=== PATIENT | female | born 1955 | race African-American/Black ===

== ENCOUNTER 2020-09-16 21:41 | Inpatient (IN) | payer OTHER, MEDICARE ==
[~2020-09-16] VITALS: Ht 157.5 cm; Wt 111.6 kg
[2020-09-16 21:30] VITALS: BP 142/81
[2020-09-16 21:45] VITALS: BP 119/73
[2020-09-16 22:00] VITALS: BP 136/82
[2020-09-16 22:15] VITALS: BP 121/77
--- NOTE | 2020-09-16 22:43 | NUR ---
Patient arrived to ICU room 104 for [facility] ED. Transferred by EMS. Intubated and covid swabbed at [facility]. No fluids infusing. Versed 5mg at [facility], no pain for sedation enroute. VSS. ETT and OG in place. PIVs x2. Family notified of transfer by Charlie, auctioneer automobile at [facility]. VSS. Will continue to monitor.
[2020-09-16] MEDS ORDERED: ENOXAPARIN 40 MG/0.4 ML SYRINGE. SQ SCH (23:00)
[2020-09-16] MEDS ORDERED: ENOXAPARIN 40 MG/0.4 ML SYRINGE. SQ ONE (23:30)
[2020-09-17] VITALS (24 sets, daily range): BP systolic 104–169; BP diastolic 58–88
[2020-09-17] MEDS: fentaNYL PF VIAL 100 MCG/2 ML VIAL IV PRN ×4 (00:29→23:16)
[2020-09-17] MEDS: PROPOFOL 100 ML IV PRN ×6 (01:03→23:15)
[2020-09-17 06:37] LABS: ALBUMIN 2.7 g/dL (3.4-5.0); ALBUMIN/GLOBULIN RATIO 0.6 (1.0-1.7); CALCIUM 8.6 mg/dL (8.5-10.1); CREATININE 2.2 mg/dL (0.6-1.0); GFR 26.9; POTASSIUM 4.8 mmol/L (3.5-5.1); TOTAL BILIRUBIN 0.3 mg/dL (0.2-1.0); TOTAL PROTEIN 6.9 g/dL (6.4-8.2)
[2020-09-17] MEDS ORDERED: DEXTROSE 50% 25 GM / 50ML DISP.SYRIN. IV PRN ×2 (07:45→08:45)
[2020-09-17] MEDS: FAMOTIDINE 20 MG/2 ML VIAL IVP SCH (07:49)
[2020-09-17] MEDS: DEXAMETHASONE SOD PHOS 4 MG/ML VIAL IVP SCH (07:49)
--- NOTE | 2020-09-17 07:50 | PDOC ---
PULMONARY PROGRESS NOTES DATE: 09/17/20 TIME: 07:49 Vitals Vital Signs Date Time Temp Pulse Resp B/P (MAP) Pulse Ox O2 Delivery O2 Flow Rate FiO2 09/17/20 06:00 78 20 112/88 (96) 93 Ventilator 09/17/20 04:00 99.4 99.4 Labs Laboratory Tests Test 09/17/20 05:01 Sodium Level 141 mmol/L (136-145) Potassium Level 4.8 mmol/L (3.5-5.1) Chloride Level 101 mmol/L (98-107) Carbon Dioxide Level 29 mmol/L (21-32) Anion Gap 11 (6-14) Blood Urea Nitrogen 69 mg/dL (7-20) Creatinine 2.2 mg/dL (0.6-1.0) Estimated GFR (Cockcroft-Gault) 26.9 BUN/Creatinine Ratio 31 (6-20) Glucose Level 223 mg/dL (70-99) Calcium Level 8.6 mg/dL (8.5-10.1) Total Bilirubin 0.3 mg/dL (0.2-1.0) Aspartate Amino Transf (AST/SGOT) 240 U/L (15-37) Alanine Aminotransferase (ALT/SGPT) 120 U/L (14-59) Alkaline Phosphatase 174 U/L (46-116) Total Protein 6.9 g/dL (6.4-8.2) Albumin 2.7 g/dL (3.4-5.0) Albumin/Globulin Ratio 0.6 (1.0-1.7) Laboratory Tests Test 09/17/20 05:01 Sodium Level 141 mmol/L (136-145) Potassium Level 4.8 mmol/L (3.5-5.1) Chloride Level 101 mmol/L (98-107) Carbon Dioxide Level 29 mmol/L (21-32) Anion Gap 11 (6-14) Blood Urea Nitrogen 69 mg/dL (7-20) Creatinine 2.2 mg/dL (0.6-1.0) Estimated GFR (Cockcroft-Gault) 26.9 BUN/Creatinine Ratio 31 (6-20) Glucose Level 223 mg/dL (70-99) Calcium Level 8.6 mg/dL (8.5-10.1) Total Bilirubin 0.3 mg/dL (0.2-1.0) Aspartate Amino Transf (AST/SGOT) 240 U/L (15-37) Alanine Aminotransferase (ALT/SGPT) 120 U/L (14-59) Alkaline Phosphatase 174 U/L (46-116) Total Protein 6.9 g/dL (6.4-8.2) Albumin 2.7 g/dL (3.4-5.0) Albumin/Globulin Ratio 0.6 (1.0-1.7) Impression . Full note dictated Acute respiratory failure multifactorial suspect pneumonia, rule out COVID-19 See orders RADHA UNGER MD Sep 17, 2020 07:50
--- NOTE | 2020-09-17 07:55 | RAD ---
XR CHEST 1V INDICATION: Reason: intubated / Spl. Instructions: / History: . COMPARISON STUDY: 09/16/2020. FINDINGS: Life Support Devices: Stable endotracheal tube. Lungs: Normal lung volume. Patchy bilateral opacities, improved in the left upper lung zone. Pleura: Small bilateral pleural effusions. Heart and Mediastinum: Stable cardiomediastinal silhouette and great vessels. Bones and Soft Tissues: Stable regional skeleton and soft tissues. IMPRESSION: 1. Patchy bilateral opacities, improved in the left upper lung zone. 2. Small bilateral pleural effusions. 3. Stable life-support devices. Electronically signed by: Guillermo Solo MD (09/17/2020 7:52 AM) [id number]
[2020-09-17] MEDS ORDERED: VANCOMYCIN 2 GM in IV NORMAL SALINE 500ML BAG 500 ML IV ONE (08:00)
--- NOTE | 2020-09-17 08:07 | CONS ---
DATE OF CONSULTATION: 09/17/2020 ATTENDING PHYSICIAN: Dr. Munguia. REASON FOR CONSULTATION: The patient is seen in pulmonary consultation at the request of Dr. Munguia for acute respiratory failure requiring mechanical ventilation. HISTORY OF PRESENT ILLNESS: The patient is a 65-year-old who presented to [facility] Emergency Room by EMS for hypoxemia. The patient stated that she was heading in the 50s and 60s. She was on home oxygen apparently at 5 liters per nasal cannula. EMS arrived, placed her on CPAP, O2 sat bertrand for 70%. The patient was obtunded, but awakens to voice commands. According to the family, she had done well up until 24 hours prior to her deterioration. She denied any COVID-19 symptoms of cough, fever. She does have a history of chronic heart failure, COPD, diabetes, was recently hospitalized for DKA. She was intubated. She was transferred to [facility]. She is in isolation for possible COVID-19. Electrolytes were noted. BUN and creatinine are elevated. AST, ALT are elevated. Chest x-ray, I reviewed, there is bilateral pulmonary infiltrates. Endotracheal tube is properly positioned. PAST MEDICAL HISTORY: Chronic heart failure, COPD, diabetes, hypertension. PAST SURGICAL HISTORY: Status post appendectomy, colectomy, hysterectomy. REVIEW OF SYSTEMS: Unobtainable secondary to the patient's condition. CURRENT MEDICATIONS: List was reviewed. She is currently receiving dexamethasone. She has received Lovenox, Pepcid. PHYSICAL EXAMINATION: VITAL SIGNS: Stable. O2 saturation was greater than 92%, currently on assist control ventilation, tidal volume of 450, rate of 20, 100% and 10 of PEEP, saturation greater than 92%. HEENT: Eyes: The sclerae were nonicteric. NECK: Jugular venous distention could not be assessed secondary to body habitus. CHEST: Full expansion. LUNGS: Bilateral rhonchi. No wheezes. CARDIOVASCULAR: Regular rate and rhythm with S1, S2, no S3. ABDOMEN: Soft, nontender. EXTREMITIES: No clubbing, cyanosis. Minimal edema. NEUROLOGICAL: The patient was sedated. LABORATORY DATA: As indicated above, recent labs revealed a BUN of 69, creatinine 2.2. AST of 240, ALT of 120. Albumin was low. Labs from [facility] revealed a white count of 18,000. IMPRESSION: 1. Acute respiratory failure, multifactorial. 2. Abnormal x-ray. 3. Acute on chronic kidney injury. 4. Chronic heart failure. 5. Possible bacterial pneumonia. 6. Rule out COVID-19. 7. Metabolic toxic encephalopathy. 8. Elevated liver chemistries. 9. Moderate protein malnutrition, present upon admission. PLAN: 1. We will continue current support, adjust minute ventilation to normalize pH. 2. Empiric antibiotics for gram-negative and gram-positive organisms. 3. SARS-CoV-2. 4. Continue dexamethasone. 5. Monitor labs. 6. Nutritional support. 7. Monitor blood sugars. I do appreciate the privilege in sharing in patient's care. Total cumulative critical care time from 7:00 a.m. to 7:48 a.m. RADHA UNGER MD DR: CHEVY/emmett JOB#: [id number] / [id number]
[2020-09-17] MEDS ORDERED: INSULIN LISPRO 300 UNITS/3 ML VIAL. SQ PRN ×2 (08:45→09:00)
[2020-09-17] MEDS: VANCOMYCIN PER PHARMACY MC PRN (09:25)
--- NOTE | 2020-09-17 09:29 | NUR ---
Pharmacy Vancomycin Dosing Note S:Consulted to monitor and dose vancomycin started 09/17/20. O:MORTEZA MCKEON is a 65 year old F with Pneumonia . Height: 5 feet, 2 inches Weight: 105.0 kg [place] Body Weight: 50.10 Adjusted Body Weight: 72.06 Dosing Weight: Actual Other Antibiotics: ZITHROMAX/ROCEPHIN LABS: Last BUN: Last Creatinine: 2.2 Creatinine Clearance: 28 mL/min Last WBC: Last Procalcitonin: Tmax (past 24 hours): 99.8 Microbiology: I/O: Drug Levels: Last level: on at Last dose given 09/17/20 at Vancomycin Dosing: Loading Dose: 2000 mg x1 Dosing Weight: Actual Target Trough: 15-20 A: Based on: WEIGHT AND RENAL FUNCTION, VANCOMYCIN 2GM IV BOLUS/ THEN P: 1. Begin Vancomycin 1500 mg IV q24h 2. Follow up Trough level on 09/19/20 at 0800 3. Pharmacy will continue to monitor, follow and adjust therapy as needed. VONNIE BOCANEGRA Karon, 09/17/20 [id number]
[2020-09-17 09:34] LABS: BASE EXCESS ABG 3 mmol/L (-3-3); HCO3 ABG 28 mmol/L (21-28); PCO2 ABG 43 mmHg (35-46); PO2 ABG 56 mmHg (65-108); SAT O2 ABG 88 % (92-99)
--- NOTE | 2020-09-17 09:44 | HP ---
ADMIT DATE: 09/17/2020 HISTORY OF PRESENT ILLNESS: The patient is a 65-year-old -[place] female patient, who presented to the Emergency Room of [facility] with worsening shortness of breath and hypoxia. She apparently was recently placed on 5 liters of oxygen by nasal cannula and her family stated her oxygen saturation was down to 50-60%. On arrival, of the emergency medical service personnel, she was placed on CPAP and oxygen saturation has improved to mid 70s. The patient is obtunded, but will awaken up to voice and follows commands. Per family, she was at baseline yesterday. They denied that she has any COVID-19 symptoms, such as cough or fever. The patient has a history significant for congestive heart failure and COPD. She has also had a history of diabetes and was most recently admitted with hyperosmolar nonketotic coma. The other history is limited given the patient was obtunded and on CPAP. The patient was evaluated in the Emergency Room. Had had an EKG, which showed that she was in sinus rhythm with no ST segment elevation or depression, T-wave inversion in lead 3 and aVF with no prior EKGs to compare. Her chest x-ray showed diffuse interstitial infiltrate and suspected small left greater than right pleural effusion. Her lab work showed that her white cell count was elevated at 18,400. Her blood gases showed a pH of 7.17, her pCO2 of 75, pO2 of 45, bicarbonate 31, and oxygen saturation was only 69% on FiO2 of 100%. Her chemistry showed that she has lactic acidosis with lactic acid of 8.1. She has acute on chronic kidney injury and her troponin was slightly elevated at 0.143. Apparently, the patient continued to do poorly and eventually she required intubation, mechanical ventilation and was transferred to [facility] with acute hypoxic hypercapnic respiratory failure, likely due to community-acquired pneumonia. She also has congestive heart failure on top of morbid obesity and probably obstructive sleep apnea. She was treated with IV Lasix together with ceftriaxone, Zithromax, albuterol, Atrovent and dexamethasone 10 mg IV once. PAST MEDICAL HISTORY: Significant for morbid obesity, hypertension, type 2 diabetes, chronic obstructive pulmonary disease, remote history of congestive heart failure. She has also history of sarcoidosis and probable obstructive sleep apnea. PAST SURGICAL HISTORY: Significant for appendectomy, partial colectomy, and hysterectomy. ALLERGIES: SHE HAS ALLERGIES TO CHACE INHIBITORS AND TRANDOLAPRIL; the exact reaction is not clear. FAMILY HISTORY: Her father at the age of 72 of COPD and lung-related issues. Mom is still alive at the age of 92. She is retired and lives with her in a house with very few stairs. SOCIAL HISTORY: She is and currently resides with her . She does not smoke, drink alcohol or use recreational drugs. REVIEW OF SYSTEMS: Unobtainable. MEDICATIONS: She is currently on following medications: She is on ipratropium bromide, albuterol sulfate by nebulizer 4 times a day, albuterol sulfate by nebulizer every 4 hours. She is on apixaban 5 mg twice a day, carvedilol 12.5 mg twice a day, oxycodone immediate release 10 mg every 6 hours, gabapentin 300 mg twice a day, Ambien 5 mg at bedtime, potassium chloride 10 mEq twice a day. She is on torsemide 20 mg twice a day, metolazone 5 mg every other day. She is on Flonase 2 sprays to each nostril once a day, ondansetron 8 mg every 8 hours. She is on metformin 1000 mg twice a day. She is on Lantus insulin 20 units at bedtime and Humalog insulin 10 units before meals. She is on levothyroxine sodium 125 mcg once a day and azathioprine for Imuran 50 mg daily, melatonin 3 mg extended release at bedtime for insomnia. PHYSICAL EXAMINATION: GENERAL: On arrival to the Emergency Room, the patient was very lethargic, but arousable. There was no pallor, jaundice, cyanosis or thyromegaly. No jugular venous distention. No lower limb edema. VITAL SIGNS: Her heart rate was 78, blood pressure was 127/83, temperature was 96.9, respiratory rate 28, and oxygen saturation was 70%. HEAD, EYES, EARS, NOSE AND THROAT: Showed normocephalic, atraumatic. NECK: Supple. HEART: Normal first and second heart sounds. No gallop or murmur. CHEST: Clear to auscultation. No crepitation or rhonchi. ABDOMEN: Distended, soft, nontender. NEUROLOGIC: She is lethargic, but arousable. All cranial nerves intact. She does open her eyes and responds verbally, but drifts back. EXTREMITIES: She moves her extremities spontaneously. LABORATORY DATA: While in the Emergency Room, she has had multiple lab work as well as imaging studies and EKG. Her EKG showed that she was in sinus rhythm with no ST segment elevation or depression. Her white cell count was 18,400; hemoglobin 12.5; hematocrit 43; MCV 78 and platelet count of 306,000 with manual differential showed 82% polymorphs, 7% lymphocytes and 10% monocytes. Her serum sodium was 140, potassium 4.6, chloride 99, bicarbonate 26, anion gap of 15, BUN 52, creatinine 2.3, estimated GFR was 25 mL per minute. Her glucose 130, calcium was 9. Lactic acid was 8.1. Total bilirubin 0.4. AST, ALT, alkaline phosphatase were normal. Troponin was 0.143 and beta-natriuretic peptide was 9323. Total protein 8.5, albumin was 3.3. Her D-dimer was high at 4.69 and urinalysis showed the urine was yellow, cloudy with a pH of 5, specific gravity 1.025. There is large amount of protein. The urine was negative for glucose, ketones, trace of blood, negative for nitrite, negative for leukocyte esterase. There are rare rbc's, rare wbc's, and no bacteria. Her influenza A and B were negative. Her chest x-ray showed the patient has diffuse interstitial infiltrate and suspected small left greater than right pleural effusion. A second x-ray showed endotracheal tube in the right mainstem bronchus and recommended repositioning. She has enteric tube, distal extent is not well assessed. Recommend further evaluation of the abdominal radiograph when the patient's condition allows. Her third chest x-ray basically showed that endotracheal tube with approximately 2 cm above ilene. Her enteric tube traverses below the diaphragm and distal extent is not well seen. Her initial blood gases showed a pH of 7.22, her pCO2 is 75, pO2 of 45, bicarbonate 31, and oxygen saturation of 69% on FiO2 of 100%. ASSESSMENT AND PLAN: The patient was diagnosed with acute hypoxic hypercapnic respiratory failure, community-acquired pneumonia, acute on chronic kidney injury, acute on chronic diastolic congestive heart failure, morbid obesity, obstructive sleep apnea, type 2 diabetes. The patient was treated with IV antibiotic in the form of ceftriaxone and Zithromax. She received also IV furosemide; a total of 80 mg nebulized treatment with albuterol and ipratropium bromide together with dexamethasone. She was swabbed for COVID-19, although clinically, the likelihood is little and was transferred to [facility] ICU for further evaluation and treatment. DARION MANCINI MD DR: NICHOLAS/emmett JOB#: [id number] / [id number]
[2020-09-17 09:59] LABS: BASO # 0.1 x10^3/uL (0.0-0.2); BASO % 0 % (0-3); EOS % 0 % (0-3); HEMATOCRIT 39.7 % (36.0-47.0); HEMOGLOBIN 11.9 g/dL (12.0-15.5); LYMPH # 1.1 x10^3/uL (1.0-4.8); LYMPH % 7 % (24-48); MEAN CORPUSCULAR HEMOGLOBIN 22 pg (25-35); MEAN CORPUSCULAR HGB CONC 30 g/dL (31-37); MEAN CORPUSCULAR VOLUME 75 fL (79-100); MONO % 6 % (0-9); NEUT # 13.6 x10^3/uL (1.8-7.7); NEUT % 86 % (31-73); PLATELET COUNT 279 x10^3/uL (140-400); RED BLOOD COUNT 5.29 x10^6/uL (3.50-5.40); RED CELL DISTRIBUTION WIDTH 18.2 % (11.5-14.5); WHITE BLOOD COUNT 15.8 x10^3/uL (4.0-11.0)
[2020-09-17] MEDS ORDERED: HEPARIN for IV BOLUS 10,000 UNIT/10 ML VIAL. IV PRN (10:00)
[2020-09-17] MEDS: HEPARIN 25,000UTS/250ML PREMIX 250 ML IV PRN (10:14)
[2020-09-17 10:36] LABS: FIO2 ABG 100% VENT
[2020-09-17 11:06] LABS: % BANDS 2 % (0-9); % LYMPHS 2 % (24-48); % MONOS 1 % (0-10); % SEGS 95 % (35-66); PLT ESTIMATE ADEQUATE (ADEQUATE)
--- NOTE | 2020-09-17 11:25 | PN ---
DATE: 09/17/2020 SUBJECTIVE: The patient is a 65-year-old -[place] female patient who was seen yesterday at [facility] with altered mental status. She was diagnosed with acute hypoxic, hypercapnic respiratory failure, requiring intubation and mechanical ventilation. She also was found to have probably community-acquired pneumonia as well as acute on chronic diastolic congestive heart failure, hfwux-wr-ahnfugs kidney injury. She was treated with IV antibiotic in the form of ceftriaxone, Zithromax as well as Zosyn and dexamethasone, received also a total of 80 mg of IV Lasix and was transferred to [facility] ICU for further evaluation and treatment. When I saw her this morning, she continued to be healing well. She continues to be sedated on propofol, intubated and mechanically ventilated. OBJECTIVE: GENERAL: On examining her, she was somewhat pale, no jaundice, cyanosis or thyromegaly. No jugular venous distention. No limb edema. VITAL SIGNS: Her heart rate was 77, blood pressure was 121/71, temperature was 99, respiratory rate was 20, and oxygen saturation was 92% on FiO2 of 50%. HEAD, EYES, EARS, NOSE AND THROAT: Normocephalic, atraumatic. NECK: Supple. HEART: Showed normal first and second heart sounds. No gallop, rub or murmur. CHEST: Showed central trachea, equal bilateral chest expansion, air entry. I could not really appreciate any crepitation or rhonchi anteriorly. ABDOMEN: Markedly distended, soft, nontender. NEUROLOGIC: She is heavily sedated. Her intake and output are incompletely recorded. LABORATORY DATA: Her lab work this morning showed a serum sodium 141, potassium 4.8, chloride 101, bicarbonate 29, anion gap of 11, BUN 69, creatinine 2.2, estimated GFR was 27 mL per minute. Her glucose was 123, calcium was 8.6. Total bilirubin is normal. AST, ALT, alkaline phosphatase are all elevated. Total protein 6.9, albumin was 2.7. Her chest x-ray showed that she has stable endotracheal tube above the ilene. Normal lung volumes with patchy bilateral opacities, improved in the left upper lobe zone. Small bilateral pleural effusion. The heart and mediastinum are stable with the impression that the patient has patchy bilateral opacities, improved in the left upper lobe lung zone. She has bilateral pleural effusion. ASSESSMENT: In summary, this is a 65-year-old -[place] female patient who was seen originally at [facility] Emergency Room with: 1. Oyrph-ih-yhcvfef hypoxic, hypercapnic respiratory failure. 2. Community-acquired pneumonia. 3. Seknf-hy-nebwfsn probably diastolic congestive heart failure. 4. Qeusp-vf-dwhnqfe kidney injury. She was swabbed for possible COVID-19, although clinically, the likelihood is less. She was treated with dexamethasone, IV Lasix and IV antibiotics. PLAN: To continue obviously with sedation and mechanical ventilation and wean as tolerated. Continue with DVT prophylaxis. Continue with azithromycin and ceftriaxone. Continue with GI prophylaxis. Continue with dexamethasone. She did receive one dose of vancomycin. Continue with fentanyl and propofol for sedation. Today's labs are still pending at the time of this dictation. I did consult Cardiology for evaluation and treatment. She was already seen by the ditcher operator. DARION MANCIIN MD DR: NICHOLAS/emmett JOB#: [id number] / [id number]
[2020-09-17] MEDS: INSULIN LISPRO 300 UNITS/3 ML VIAL. SQ SCH ×2 (11:49→18:08)
[2020-09-17] MEDS ORDERED: LEVO125T5 PO (13:17)
[2020-09-17] MEDS ORDERED: INSU100V38 SQ (13:17)
[2020-09-17] MEDS ORDERED: ALBU2.5V5 NEB (13:17)
[2020-09-17] MEDS ORDERED: GABA300C18 PO (13:17)
[2020-09-17] MEDS ORDERED: APIX5TAB PO (13:17)
[2020-09-17] MEDS ORDERED: INSU100I13 SQ (13:17)
[2020-09-17] MEDS ORDERED: IPRA3AMP29 NEB (13:17)
[2020-09-17] MEDS ORDERED: METO5TAB4 PO (13:17)
[2020-09-17] MEDS ORDERED: ZOLP5TAB PO (13:17)
[2020-09-17] MEDS ORDERED: CARV12.511 PO (13:17)
[2020-09-17] MEDS ORDERED: TORS20TA2 PO (13:17)
[2020-09-17] MEDS ORDERED: METF10007 PO (13:17)
[2020-09-17] MEDS ORDERED: AZAT50TA20 PO (13:17)
[2020-09-17] MEDS ORDERED: POTA10TA6 PO (13:17)
[2020-09-17] MEDS ORDERED: MELA5CAP PO (13:17)
[2020-09-17] MEDS ORDERED: OXYC5TAB2 PO (13:17)
[2020-09-17] MEDS ORDERED: CARVEDILOL 12.5 MG TABLET. PO ONE (14:15)
--- NOTE | 2020-09-17 14:28 | PDOC2 ---
CONSULT Date of Consult Date of Consult DATE: 09/17/20 TIME: 14:19 Reason for Consult Reason for Consult: Respiratory failure with possible heart failure Referring Physician Referring Physician: Dr. Munguia Identification/Chief Complaint Chief Complaint Shortness of breath Source Source: Chart review History of Present Illness Reason for Visit: The patient is a 65-year-old female who presented to the [facility] emergency room with increasing shortness of breath. Her chest x-ray showed diffuse interstitial infiltrates and mild bilateral pleural effusions. Her lactic acid was elevated and she had a troponin of 0.143 but no acute ischemic changes. The patient progressively deteriorated and required intubation. She was then transferred to [facility]. The patient has remained intubated overnight. Further significant lab is been a white count of 15.8 potassium 4.8 creatinine of 2.2 glucose of 206 and her troponin has decreased from 0.975- 0.820. She has remained intubated did overnight. She does have a history of heart failure, COPD, diabetes and possibly sarcoidosis. Past Medical History Cardiovascular: CHF, HTN Pulmonary: COPD, Other (Possible sleep apnea) Renal/: Chronic renal insuff Endocrine: Diabetes Past Surgical History Past Surgical History: Appendectomy, Hysterectomy, Colectomy Family History Family History: Hypertension Social History No ALCOHOL: none Lives: with Family Current Medications Current Medications Current Medications Enoxaparin Sodium (Lovenox 40mg Syringe) 40 mg Q24H SQ ; Start 09/16/20 at 23:00; Stop 09/16/20 at 23:27; Status DC Ceftriaxone Sodium (Rocephin) 1 gm Q24H IVP ; Start 09/17/20 at 17:00 Azithromycin 500 mg/Sodium Chloride 250 ml @ 250 mls/hr Q24H IV ; Start 09/17/20 at 17:00 Dexamethasone Sodium Phosphate (Decadron) 6 mg DAILY IVP Last administered on 09/17/20at 07:49; Start 09/17/20 at 09:00 Propofol 100 ml @ 0 mls/hr CONT PRN IV PER PROTOCOL Last administered on at 09:39; Start 09/16/20 at 23:00 Fentanyl Citrate (Fentanyl 2ml Vial) 50 mcg PRN Q1HR PRN IV SEE COMMENTS Last administered on 09/17/20at 12:50; Start 09/16/20 at 23:00 Famotidine (Pepcid Vial) 20 mg DAILY IVP Last administered on 09/17/20at 07:49; Start 09/17/20 at 09:00 Enoxaparin Sodium (Lovenox 40mg Syringe) 40 mg Q24H SQ ; Start 09/17/20 at 21:00; Stop 09/17/20 at 10:03; Status DC Enoxaparin Sodium (Lovenox 40mg Syringe) 40 mg 1X ONCE SQ Last administered on 09/17/20at 00:28; Start 09/16/20 at 23:30; Stop 09/16/20 at 23:31; Status DC Dextrose (Dextrose 50%-Water Syringe) 12.5 gm PRN Q15MIN PRN IV SEE COMMENTS; Start 09/17/20 at 07:45; Stop 09/17/20 at 08:50; Status DC Vancomycin HCl (Vanco Per Pharmacy) 1 each PRN DAILY PRN MC SEE COMMENTS Last administered on 09/17/20at 09:25; Start 09/17/20 at 08:00 Vancomycin HCl 2 gm/Sodium Chloride 500 ml @ 250 mls/hr 1X ONCE IV Last administered on 09/17/20at 08:32; Start 09/17/20 at 08:00; Stop 09/17/20 at 09:59; Status DC Insulin Human Lispro (HumaLOG) 0-7 UNITS Q6H PRN SQ hyperglycemia; Start 09/17/20 at 08:45; Stop 09/17/20 at 08:48; Status DC Dextrose (Dextrose 50%-Water Syringe) 12.5 gm PRN Q15MIN PRN IV SEE COMMENTS; Start 09/17/20 at 08:45 Insulin Human Lispro (HumaLOG) 0-7 UNITS PRN Q6HRS PRN SQ hyperglycemia; Start 09/17/20 at 09:00; Stop 09/17/20 at 11:06; Status DC Vancomycin HCl 1.5 gm/Sodium Chloride 500 ml @ 250 mls/hr Q24H IV ; Start 09/18/20 at 08:30 Vancomycin HCl (Vancomycin Trough Level) 1 each 1X ONCE MC ; Start 09/19/20 at 08:00; Stop 09/19/20 at 08:01 Heparin Sodium/ Dextrose 250 ml @ 0 mls/hr CONT PRN IV PER PROTOCOL Last administered on 09/17/20at 10:14; Start 09/17/20 at 10:00 Heparin Sodium (Porcine) (Heparin Sodium) 2,650 unit PRN Q6HRS PRN IV FOR UFH LEVEL LESS THAN 0.2; Start 09/17/20 at 10:00 Insulin Human Lispro (HumaLOG) 0-7 UNITS Q6HRS SQ Last administered on 09/17/20at 11:49; Start 09/17/20 at 12:00 Carvedilol (Coreg) 12.5 mg BIDWMEALS PO ; Start 09/17/20 at 17:00 Carvedilol (Coreg) 12.5 mg 1X ONCE PO ; Start 09/17/20 at 14:15; Stop 09/17/20 at 14:16 Nitroglycerin/ Dextrose 250 ml @ 1.5 mls/hr CONT PRN IV SEE I/O RECORD; Start 09/17/20 at 13:45 Active Scripts Active Reported Metolazone 5 Mg Tablet 5 Mg PO QODAY Imuran (Azathioprine) 50 Mg Tablet 1 Tab PO DAILY 30 Days Albuterol Sulfate Neb Soln (Albuterol Sulfate) 2.5 Mg/3 Ml Vial.neb 1 Vial NEB PRN Q4HRS Carvedilol (Carvedilol) 12.5 Mg Tablet 12.5 Mg PO BIDWMEALS Melatonin 5 Mg Capsule 3 Mg PO HS Duoneb 0.5-3(2.5) Mg/3 Ml (Albuterol/Ipratropium) 3 Ml Ampul.neb 3 Ml NEB QID Klor-Con 10 (Potassium Chloride) 10 Meq Tablet.er 1 Tab PO DAILY 30 Days Eliquis (Apixaban) 5 Mg Tablet 5 Mg PO BID Torsemide 20 Mg Tablet 1 Tab PO BID Metformin Hcl 1,000 Mg Tablet 1,000 Mg PO BIDWMEALS Oxycodone HCl 5 Mg Tablet 10 Mg PO PRN Q6HRS PRN Ambien (Zolpidem Tartrate) 5 Mg Tablet 5 Mg PO PRN QHS PRN Levothyroxine Sodium 125 Mcg Tablet 1 Tab PO DAILY Gabapentin (Gabapentin) 300 Mg Capsule 300 Mg PO BID Lantus Solostar (Insulin Glargine,Hum.rec.anlog) 100 Unit/1 Ml Insuln.pen 20 Unit SQ QHS Insulin Lispro 100 Unit/1 Ml Vial 10 Unit SQ TID Allergies Allergies: Coded Allergies: CHACE Inhibitors (Verified Allergy, Severe, 09/16/20) trandolapril (Verified Allergy, Severe, 09/16/20) ROS Review of System The patient is intubated. Physical Exam General: Other (Intubated) Lungs: Other (Decreased breath sounds) Heart: Regular rate Vitals VITALS Vital Signs Date Time Temp Pulse Resp B/P (MAP) Pulse Ox O2 Delivery O2 Flow Rate FiO2 09/17/20 14:00 77 20 105/58 (74) 94 Ventilator 09/17/20 12:00 98.9 98.9 Labs Labs Laboratory Tests Test 09/17/20 05:00 09/17/20 05:01 09/17/20 05:09 09/17/20 09:10 White Blood Count 15.8 x10^3/uL (4.0-11.0) Red Blood Count 5.29 x10^6/uL (3.50-5.40) Hemoglobin 11.9 g/dL (12.0-15.5) Hematocrit 39.7 % (36.0-47.0) Mean Corpuscular Volume 75 fL (79-100) Mean Corpuscular Hemoglobin 22 pg (25-35) Mean Corpuscular Hemoglobin Concent 30 g/dL (31-37) Red Cell Distribution Width 18.2 % (11.5-14.5) Platelet Count 279 x10^3/uL (140-400) Neutrophils (%) (Auto) 86 % (31-73) Lymphocytes (%) (Auto) 7 % (24-48) Monocytes (%) (Auto) 6 % (0-9) Eosinophils (%) (Auto) 0 % (0-3) Basophils (%) (Auto) 0 % (0-3) Neutrophils # (Auto) 13.6 x10^3/uL (1.8-7.7) Lymphocytes # (Auto) 1.1 x10^3/uL (1.0-4.8) Monocytes # (Auto) 1.0 x10^3/uL (0.0-1.1) Eosinophils # (Auto) 0.0 x10^3/uL (0.0-0.7) Basophils # (Auto) 0.1 x10^3/uL (0.0-0.2) Segmented Neutrophils % 95 % (35-66) Band Neutrophils % 2 % (0-9) Lymphocytes % 2 % (24-48) Monocytes % 1 % (0-10) Platelet Estimate Adequate (ADEQUATE) Sodium Level 141 mmol/L (136-145) Potassium Level 4.8 mmol/L (3.5-5.1) Chloride Level 101 mmol/L (98-107) Carbon Dioxide Level 29 mmol/L (21-32) Anion Gap 11 (6-14) Blood Urea Nitrogen 69 mg/dL (7-20) Creatinine 2.2 mg/dL (0.6-1.0) Estimated GFR (Cockcroft-Gault) 26.9 BUN/Creatinine Ratio 31 (6-20) Glucose Level 223 mg/dL (70-99) Calcium Level 8.6 mg/dL (8.5-10.1) Total Bilirubin 0.3 mg/dL (0.2-1.0) Aspartate Amino Transf (AST/SGOT) 240 U/L (15-37) Alanine Aminotransferase (ALT/SGPT) 120 U/L (14-59) Alkaline Phosphatase 174 U/L (46-116) Total Protein 6.9 g/dL (6.4-8.2) Albumin 2.7 g/dL (3.4-5.0) Albumin/Globulin Ratio 0.6 (1.0-1.7) Troponin I Quantitative 0.975 ng/mL (0.000-0.055) O2 Saturation 88 % (92-99) Arterial Blood pH 7.43 (7.35-7.45) Arterial Blood pCO2 at Patient Temp 43 mmHg (35-46) Arterial Blood pO2 at Patient Temp 56 mmHg (65-108) Arterial Blood HCO3 28 mmol/L (21-28) Arterial Blood Base Excess 3 mmol/L (-3-3) FiO2 100% vent Test 09/17/20 10:54 09/17/20 12:35 Glucose (Fingerstick) 206 mg/dL (70-99) Troponin I Quantitative 0.820 ng/mL (0.000-0.055) Laboratory Tests Test 09/17/20 05:00 09/17/20 05:01 09/17/20 05:09 09/17/20 09:10 White Blood Count 15.8 x10^3/uL (4.0-11.0) Red Blood Count 5.29 x10^6/uL (3.50-5.40) Hemoglobin 11.9 g/dL (12.0-15.5) Hematocrit 39.7 % (36.0-47.0) Mean Corpuscular Volume 75 fL (79-100) Mean Corpuscular Hemoglobin 22 pg (25-35) Mean Corpuscular Hemoglobin Concent 30 g/dL (31-37) Red Cell Distribution Width 18.2 % (11.5-14.5) Platelet Count 279 x10^3/uL (140-400) Neutrophils (%) (Auto) 86 % (31-73) Lymphocytes (%) (Auto) 7 % (24-48) Monocytes (%) (Auto) 6 % (0-9) Eosinophils (%) (Auto) 0 % (0-3) Basophils (%) (Auto) 0 % (0-3) Neutrophils # (Auto) 13.6 x10^3/uL (1.8-7.7) Lymphocytes # (Auto) 1.1 x10^3/uL (1.0-4.8) Monocytes # (Auto) 1.0 x10^3/uL (0.0-1.1) Eosinophils # (Auto) 0.0 x10^3/uL (0.0-0.7) Basophils # (Auto) 0.1 x10^3/uL (0.0-0.2) Segmented Neutrophils % 95 % (35-66) Band Neutrophils % 2 % (0-9) Lymphocytes % 2 % (24-48) Monocytes % 1 % (0-10) Platelet Estimate Adequate (ADEQUATE) Sodium Level 141 mmol/L (136-145) Potassium Level 4.8 mmol/L (3.5-5.1) Chloride Level 101 mmol/L (98-107) Carbon Dioxide Level 29 mmol/L (21-32) Anion Gap 11 (6-14) Blood Urea Nitrogen 69 mg/dL (7-20) Creatinine 2.2 mg/dL (0.6-1.0) Estimated GFR (Cockcroft-Gault) 26.9 BUN/Creatinine Ratio 31 (6-20) Glucose Level 223 mg/dL (70-99) Calcium Level 8.6 mg/dL (8.5-10.1) Total Bilirubin 0.3 mg/dL (0.2-1.0) Aspartate Amino Transf (AST/SGOT) 240 U/L (15-37) Alanine Aminotransferase (ALT/SGPT) 120 U/L (14-59) Alkaline Phosphatase 174 U/L (46-116) Total Protein 6.9 g/dL (6.4-8.2) Albumin 2.7 g/dL (3.4-5.0) Albumin/Globulin Ratio 0.6 (1.0-1.7) Troponin I Quantitative 0.975 ng/mL (0.000-0.055) O2 Saturation 88 % (92-99) Arterial Blood pH 7.43 (7.35-7.45) Arterial Blood pCO2 at Patient Temp 43 mmHg (35-46) Arterial Blood pO2 at Patient Temp 56 mmHg (65-108) Arterial Blood HCO3 28 mmol/L (21-28) Arterial Blood Base Excess 3 mmol/L (-3-3) FiO2 100% vent Test 09/17/20 10:54 09/17/20 12:35 Glucose (Fingerstick) 206 mg/dL (70-99) Troponin I Quantitative 0.820 ng/mL (0.000-0.055) Images Images Chest x-ray with patchy mild lateral opacities and small pleural effusions. Assessment/Plan Assessment/Plan 1. Acute respiratory failure. Intubated as above. Multifactorial with AECOPD, pneumonia and probable heart failure. Covid testing is pending. Patient has been placed on antibiotics and is being monitored by the pulmonary service. We'll considered mild diuresis but creatinine is elevated 2.2 and we will monitor her lab. 2. Minimally elevated troponin at 0.975 as a peak. No acute ischemic EKG changes. Consistent with demand ischemia. Will rule out. We'll check an echocardiogram if the patient rules out for Covid. 3. History of COPD. Pulmonary treatment as above. 4. NICOLAS. Creatinine as above is 2.2. We'll continue to monitor. 5. Diabetes mellitus. Initial glucose of 206. As per the pulmonary service. Thank you for allowing us to participate in the care of your patient. VIKTOR BRUNNER MD Sep 17, 2020 14:28
[2020-09-17] MEDS: cefTRIAXone IV Push 1 GM VIAL. IVP SCH (16:55)
[2020-09-17] MEDS: CARVEDILOL 12.5 MG TABLET. PO SCH (16:55)
[2020-09-17] MEDS ORDERED: AZITHROMYCIN 500 MG in IV NORMAL SALINE 250ML 250 ML IV SCH (17:00)
[2020-09-17] MEDS: NYSTATIN TOPICAL POWDER 15GM BOTTLE. TP SCH (20:08)
[2020-09-17] MEDS ORDERED: ENOXAPARIN 40 MG/0.4 ML SYRINGE. SQ SCH (21:00)
[2020-09-18] VITALS (24 sets, daily range): BP systolic 114–177; BP diastolic 64–94
[2020-09-18] MEDS: PROPOFOL 100 ML IV PRN ×5 (03:28→22:16)
[2020-09-18] MEDS: INSULIN LISPRO 300 UNITS/3 ML VIAL. SQ SCH ×4 (03:37→17:02)
[2020-09-18] MEDS: HEPARIN 25,000UTS/250ML PREMIX 250 ML IV PRN (06:48)
[2020-09-18] MEDS: CARVEDILOL 12.5 MG TABLET. PO SCH ×2 (07:53→17:02)
[2020-09-18] MEDS: FAMOTIDINE 20 MG/2 ML VIAL IVP SCH (07:53)
[2020-09-18] MEDS: NYSTATIN TOPICAL POWDER 15GM BOTTLE. TP SCH ×2 (07:54→20:26)
[2020-09-18] MEDS: DEXAMETHASONE SOD PHOS 4 MG/ML VIAL IVP SCH (07:54)
[2020-09-18] MEDS: VANCOMYCIN 1.5 GM in IV NORMAL SALINE 500ML BAG 500 ML IV SCH (07:54)
[2020-09-18] MEDS: fentaNYL PF VIAL 100 MCG/2 ML VIAL IV PRN ×3 (08:05→23:32)
[2020-09-18 08:18] LABS: BASE EXCESS ABG 5 mmol/L (-3-3); HCO3 ABG 29 mmol/L (21-28); PCO2 ABG 42 mmHg (35-46); PO2 ABG 59 mmHg (65-108); SAT O2 ABG 90 % (92-99)
[2020-09-18] MEDS ORDERED: INSULIN LISPRO 300 UNITS/3 ML VIAL. SQ SCH (08:30)
[2020-09-18] MEDS ORDERED: DEXTROSE 50% 25 GM / 50ML DISP.SYRIN. IV PRN (08:30)
[2020-09-18 08:45] LABS: FIO2 ABG 100% VENT
--- NOTE | 2020-09-18 08:56 | PN ---
DATE: 09/18/2020 SUBJECTIVE: The patient continues to be sedated, intubated, mechanically ventilated; however, she continued to require an FiO2 of 100%. PHYSICAL EXAMINATION: GENERAL: When I examined her, she looked pale, but no jaundice, cyanosis or thyromegaly. No jugular venous distention. No lower limb edema. VITAL SIGNS: Her heart rate was 63, blood pressure was 153/81, temperature was 98.2, respiratory rate was 20, and her oxygen saturation was 98% on FiO2 of 100%. HEAD, EYES, EARS, NOSE, AND THROAT: Showed normocephalic, atraumatic. She has orotracheal and orogastric tube. NECK: Supple. HEART: Normal first and second heart sounds. No gallop or murmur. CHEST: Shows central trachea, equal bilateral chest expansion, air entry, vesicular sounds. I could not really appreciate any crepitation or rhonchi anteriorly. ABDOMEN: Markedly distended, soft, nontender. NEUROLOGIC: She is heavily sedated. Her intake and output are incompletely recorded. LABORATORY DATA: Today's labs are still pending at the time of this dictation. As of yesterday, her white cell count was 15,800; hemoglobin 12; hematocrit 40; MCV 75 and platelet count 279,000. Her chemistry showed that her serum sodium was 141, potassium 4.8, chloride 101, bicarbonate 29, anion gap of 11, BUN 69, creatinine 2.2, estimated GFR was 27 mL per minute. Her glucose was 223, calcium was 8.6. Total bilirubin is normal. AST, ALT, alkaline phosphatase were all elevated. Total protein 6.9, albumin was 2.7. ASSESSMENT: This is a 65-year-old -[place] female patient, who was seen originally at [facility] Emergency Room with: 1. Acute on chronic hypoxic hypercapnic respiratory failure. 2. Community-acquired pneumonia. 3. Acute on chronic diastolic congestive heart failure. 4. Acute on chronic kidney injury. 5. COVID-19 test was negative. 6. Morbid obesity and obstructive sleep apnea. 7. The patient has multiple other medical problems, including: A. Hypertension. B. Type 2 diabetes mellitus. C. Sarcoidosis. D. Morbid obesity and obstructive sleep apnea. E. Chronic obstructive pulmonary disease. F. History of pulmonary embolism. PLAN: Is obviously to continue with sedation and mechanical ventilation. Continue with the heparin drip as per the box car washer's recommendation. Continue with IV antibiotic in the form of vancomycin, Zithromax and ceftriaxone. Continue nutritional support. Continue to monitor her blood sugar and adjust insulin as needed. DARION MANCINI MD DR: NICHOLAS/emmett JOB#: [id number] / [id number]
--- NOTE | 2020-09-18 11:14 | PDOC ---
PULMONARY PROGRESS NOTES DATE: 09/18/20 TIME: 11:07 Subjective Patient remains on vent support, 100% and a PEEP of 10 Afebrile overnight On heparin drip Other concerns from nursing Vitals Vital Signs Date Time Temp Pulse Resp B/P (MAP) Pulse Ox O2 Delivery O2 Flow Rate FiO2 09/18/20 10:00 64 20 146/78 (100) 92 Ventilator 09/18/20 08:00 98.4 98.4 Comments Intubated/sedated Lungs: Clear Cardiovascular: S1, S2 Abdomen: Soft Extremities: Other (Bilateral lower extremity +1 edema) Skin: Warm, Dry Labs Laboratory Tests Test 09/17/20 05:00 09/17/20 05:01 09/17/20 05:09 09/17/20 09:10 White Blood Count 15.8 x10^3/uL (4.0-11.0) Red Blood Count 5.29 x10^6/uL (3.50-5.40) Hemoglobin 11.9 g/dL (12.0-15.5) Hematocrit 39.7 % (36.0-47.0) Mean Corpuscular Volume 75 fL (79-100) Mean Corpuscular Hemoglobin 22 pg (25-35) Mean Corpuscular Hemoglobin Concent 30 g/dL (31-37) Red Cell Distribution Width 18.2 % (11.5-14.5) Platelet Count 279 x10^3/uL (140-400) Neutrophils (%) (Auto) 86 % (31-73) Lymphocytes (%) (Auto) 7 % (24-48) Monocytes (%) (Auto) 6 % (0-9) Eosinophils (%) (Auto) 0 % (0-3) Basophils (%) (Auto) 0 % (0-3) Neutrophils # (Auto) 13.6 x10^3/uL (1.8-7.7) Lymphocytes # (Auto) 1.1 x10^3/uL (1.0-4.8) Monocytes # (Auto) 1.0 x10^3/uL (0.0-1.1) Eosinophils # (Auto) 0.0 x10^3/uL (0.0-0.7) Basophils # (Auto) 0.1 x10^3/uL (0.0-0.2) Segmented Neutrophils % 95 % (35-66) Band Neutrophils % 2 % (0-9) Lymphocytes % 2 % (24-48) Monocytes % 1 % (0-10) Platelet Estimate Adequate (ADEQUATE) Sodium Level 141 mmol/L (136-145) Potassium Level 4.8 mmol/L (3.5-5.1) Chloride Level 101 mmol/L (98-107) Carbon Dioxide Level 29 mmol/L (21-32) Anion Gap 11 (6-14) Blood Urea Nitrogen 69 mg/dL (7-20) Creatinine 2.2 mg/dL (0.6-1.0) Estimated GFR (Cockcroft-Gault) 26.9 BUN/Creatinine Ratio 31 (6-20) Glucose Level 223 mg/dL (70-99) Calcium Level 8.6 mg/dL (8.5-10.1) Total Bilirubin 0.3 mg/dL (0.2-1.0) Aspartate Amino Transf (AST/SGOT) 240 U/L (15-37) Alanine Aminotransferase (ALT/SGPT) 120 U/L (14-59) Alkaline Phosphatase 174 U/L (46-116) Total Protein 6.9 g/dL (6.4-8.2) Albumin 2.7 g/dL (3.4-5.0) Albumin/Globulin Ratio 0.6 (1.0-1.7) Troponin I Quantitative 0.975 ng/mL (0.000-0.055) O2 Saturation 88 % (92-99) Arterial Blood pH 7.43 (7.35-7.45) Arterial Blood pCO2 at Patient Temp 43 mmHg (35-46) Arterial Blood pO2 at Patient Temp 56 mmHg (65-108) Arterial Blood HCO3 28 mmol/L (21-28) Arterial Blood Base Excess 3 mmol/L (-3-3) FiO2 100% vent Test 09/17/20 10:54 09/17/20 12:35 09/17/20 16:40 09/17/20 18:02 Glucose (Fingerstick) 206 mg/dL (70-99) 243 mg/dL (70-99) Troponin I Quantitative 0.820 ng/mL (0.000-0.055) Heparin Anti-Xa Act, Unfractionated 0.89 IU/mL (0.30-0.70) Test 09/18/20 00:30 09/18/20 03:32 09/18/20 06:44 09/18/20 08:15 Heparin Anti-Xa Act, Unfractionated 0.96 IU/mL (0.30-0.70) Glucose (Fingerstick) 195 mg/dL (70-99) 191 mg/dL (70-99) O2 Saturation 90 % (92-99) Arterial Blood pH 7.46 (7.35-7.45) Arterial Blood pCO2 at Patient Temp 42 mmHg (35-46) Arterial Blood pO2 at Patient Temp 59 mmHg (65-108) Arterial Blood HCO3 29 mmol/L (21-28) Arterial Blood Base Excess 5 mmol/L (-3-3) FiO2 100% vent Laboratory Tests Test 09/17/20 12:35 09/17/20 16:40 09/17/20 18:02 09/18/20 00:30 Troponin I Quantitative 0.820 ng/mL (0.000-0.055) Heparin Anti-Xa Act, Unfractionated 0.89 IU/mL (0.30-0.70) 0.96 IU/mL (0.30-0.70) Glucose (Fingerstick) 243 mg/dL (70-99) Test 09/18/20 03:32 09/18/20 06:44 09/18/20 08:15 Glucose (Fingerstick) 195 mg/dL (70-99) 191 mg/dL (70-99) O2 Saturation 90 % (92-99) Arterial Blood pH 7.46 (7.35-7.45) Arterial Blood pCO2 at Patient Temp 42 mmHg (35-46) Arterial Blood pO2 at Patient Temp 59 mmHg (65-108) Arterial Blood HCO3 29 mmol/L (21-28) Arterial Blood Base Excess 5 mmol/L (-3-3) FiO2 100% vent Medications Active Scripts Medications Dose Route/Sig Max Daily Dose Days Date Category Metolazone 5 Mg Tablet 5 Mg PO QODAY 09/17/20 Reported Imuran (Azathioprine) 50 Mg Tablet 1 Tab PO DAILY 30 09/17/20 Reported Albuterol Sulfate Neb Soln (Albuterol Sulfate) 2.5 Mg/3 Ml Vial.neb 1 Vial NEB PRN Q4HRS 09/17/20 Reported Carvedilol (Carvedilol) 12.5 Mg Tablet 12.5 Mg PO BIDWMEALS 09/17/20 Reported Melatonin 5 Mg Capsule 3 Mg PO HS 09/17/20 Reported Duoneb 0.5-3(2.5) Mg/3 Ml (Albuterol/Ipratropium) 3 Ml Ampul.neb 3 Ml NEB QID 09/17/20 Reported Klor-Con 10 (Potassium Chloride) 10 Meq Tablet.er 1 Tab PO DAILY 30 09/17/20 Reported Eliquis (Apixaban) 5 Mg Tablet 5 Mg PO BID 09/17/20 Reported Torsemide 20 Mg Tablet 1 Tab PO BID 09/17/20 Reported Metformin Hcl 1,000 Mg Tablet 1,000 Mg PO BIDWMEALS 09/17/20 Reported Oxycodone HCl 5 Mg Tablet 10 Mg PO PRN Q6HRS PRN 09/17/20 Reported Ambien (Zolpidem Tartrate) 5 Mg Tablet 5 Mg PO PRN QHS PRN 09/17/20 Reported Levothyroxine Sodium 125 Mcg Tablet 1 Tab PO DAILY 09/17/20 Reported Gabapentin (Gabapentin) 300 Mg Capsule 300 Mg PO BID 09/17/20 Reported Lantus Solostar (Insulin Glargine,Hum.rec.anlog) 100 Unit/1 Ml Insuln.pen 20 Unit SQ QHS 09/17/20 Reported Insulin Lispro 100 Unit/1 Ml Vial 10 Unit SQ TID 09/17/20 Reported Comments CXR IMPRESSION: 1. Patchy bilateral opacities, improved in the left upper lung zone. 2. Small bilateral pleural effusions. 3. Stable life-support devices. Impression . IMPRESSION: 1. Acute respiratory failure, multifactorial, requiring intubation 2. Abnormal x-ray. 3. Acute on chronic kidney injury. 4. Chronic heart failure. 5. Possible bacterial pneumonia. 6. COVID-19-- negative 7. Metabolic toxic encephalopathy. 8. Elevated liver chemistries. 9. Moderate protein malnutrition, present upon admission. Plan . PLAN: Continue current vent support, assist-control 20/450/10/100% Follow chest x-ray and ABG, make changes as needed, no changes today Continue empiric antibiotics, currently on vancomycin and Rocephin Continue heparin drip per cardiology recommendations Patient has a history of pulmonary embolism reported to be on Eliquis outpatient, will obtain bilateral lower extremity Dopplers Monitor renal function, creatinine 2.2 today unknown baseline COVID-19 negative Follow cardiology recommendations Hyperglycemia per PCP DVT/GI prophylaxis Critical care time [id number] RADHA UNGER MD Sep 18, 2020 11:14
[2020-09-18 11:22] LABS: HEMATOCRIT 40.5 % (36.0-47.0); HEMOGLOBIN 12.9 g/dL (12.0-15.5); RED BLOOD COUNT 5.53 x10^6/uL (3.50-5.40); RED CELL DISTRIBUTION WIDTH 18.3 % (11.5-14.5); WHITE BLOOD COUNT 14.1 x10^3/uL (4.0-11.0)
[2020-09-18 11:46] LABS: ALBUMIN 2.7 g/dL (3.4-5.0); ALBUMIN/GLOBULIN RATIO 0.6 (1.0-1.7); CALCIUM 8.7 mg/dL (8.5-10.1); CREATININE 1.6 mg/dL (0.6-1.0); GFR 38.9; POTASSIUM 4.5 mmol/L (3.5-5.1); TOTAL BILIRUBIN 0.4 mg/dL (0.2-1.0); TOTAL PROTEIN 7.1 g/dL (6.4-8.2)
--- NOTE | 2020-09-18 11:50 | RAD ---
EXAM: Bilateral lower extremity venous Doppler sonogram. HISTORY: Pain and small. TECHNIQUE: Ramirez scale and color Doppler sonographic evaluation of the bilateral lower extremity veins with spectral waveform analysis was performed. FINDINGS: There is normal color flow, normal compressibility and there are normal spectral waveforms in the common femoral, superficial femoral, popliteal, posterior tibial and greater saphenous veins. IMPRESSION: No Doppler evidence of lower extremity deep venous thrombosis. Electronically signed by: Donna Maldonado MD (09/18/2020 11:48 AM) [facility]
--- NOTE | 2020-09-18 14:16 | PDOC ---
PROGRESS NOTES Date of Service DATE: 09/18/20 TIME: 14:14 Subjective Subjective Patient seen and evaluated Objective Objective Vital Signs Date Time Temp Pulse Resp B/P (MAP) Pulse Ox O2 Delivery O2 Flow Rate FiO2 09/18/20 13:00 60 20 155/80 (105) 94 Ventilator 09/18/20 12:00 98.4 98.4 Intake and Output 09/18/20 07:00 Intake Total 3019.8 ml Output Total 1280 ml Balance 1739.8 ml Intake IV Total 1760.8 ml Tube Feeding 859 ml Other 400 ml Output Urine Total 1030 ml Gastric Drainage Total 250 ml Physical Exam Physical Exam Visual examination. Assessment Assessment 1. Acute respiratory failure. Intubated. Multifactorial with AECOPD, pneumonia and probable heart failure. Covid testing is pending. Patient has been placed on antibiotics and is being monitored by the pulmonary service. We'll considered mild diuresis. Creatinine has improved to 1.6. 2. Minimally elevated troponin at 0.975 as a peak. No acute ischemic EKG changes. Consistent with demand ischemia. Will rule out. We'll check an echocardiogram if the patient rules out for Covid. 3. History of COPD. Pulmonary treatment as above. 4. NICOLAS. Creatinine as above is now 1.6. We'll continue to monitor. 5. Diabetes mellitus. Initial glucose of 206. As per the pulmonary service. Comment Review of Relevant I have reviewed the following items isaiah (where applicable) has been applied. Labs Laboratory Tests Test 09/17/20 05:00 09/17/20 05:01 09/17/20 05:09 09/17/20 09:10 White Blood Count 15.8 x10^3/uL (4.0-11.0) Red Blood Count 5.29 x10^6/uL (3.50-5.40) Hemoglobin 11.9 g/dL (12.0-15.5) Hematocrit 39.7 % (36.0-47.0) Mean Corpuscular Volume 75 fL (79-100) Mean Corpuscular Hemoglobin 22 pg (25-35) Mean Corpuscular Hemoglobin Concent 30 g/dL (31-37) Red Cell Distribution Width 18.2 % (11.5-14.5) Platelet Count 279 x10^3/uL (140-400) Neutrophils (%) (Auto) 86 % (31-73) Lymphocytes (%) (Auto) 7 % (24-48) Monocytes (%) (Auto) 6 % (0-9) Eosinophils (%) (Auto) 0 % (0-3) Basophils (%) (Auto) 0 % (0-3) Neutrophils # (Auto) 13.6 x10^3/uL (1.8-7.7) Lymphocytes # (Auto) 1.1 x10^3/uL (1.0-4.8) Monocytes # (Auto) 1.0 x10^3/uL (0.0-1.1) Eosinophils # (Auto) 0.0 x10^3/uL (0.0-0.7) Basophils # (Auto) 0.1 x10^3/uL (0.0-0.2) Segmented Neutrophils % 95 % (35-66) Band Neutrophils % 2 % (0-9) Lymphocytes % 2 % (24-48) Monocytes % 1 % (0-10) Platelet Estimate Adequate (ADEQUATE) Sodium Level 141 mmol/L (136-145) Potassium Level 4.8 mmol/L (3.5-5.1) Chloride Level 101 mmol/L (98-107) Carbon Dioxide Level 29 mmol/L (21-32) Anion Gap 11 (6-14) Blood Urea Nitrogen 69 mg/dL (7-20) Creatinine 2.2 mg/dL (0.6-1.0) Estimated GFR (Cockcroft-Gault) 26.9 BUN/Creatinine Ratio 31 (6-20) Glucose Level 223 mg/dL (70-99) Calcium Level 8.6 mg/dL (8.5-10.1) Total Bilirubin 0.3 mg/dL (0.2-1.0) Aspartate Amino Transf (AST/SGOT) 240 U/L (15-37) Alanine Aminotransferase (ALT/SGPT) 120 U/L (14-59) Alkaline Phosphatase 174 U/L (46-116) Total Protein 6.9 g/dL (6.4-8.2) Albumin 2.7 g/dL (3.4-5.0) Albumin/Globulin Ratio 0.6 (1.0-1.7) Troponin I Quantitative 0.975 ng/mL (0.000-0.055) O2 Saturation 88 % (92-99) Arterial Blood pH 7.43 (7.35-7.45) Arterial Blood pCO2 at Patient Temp 43 mmHg (35-46) Arterial Blood pO2 at Patient Temp 56 mmHg (65-108) Arterial Blood HCO3 28 mmol/L (21-28) Arterial Blood Base Excess 3 mmol/L (-3-3) FiO2 100% vent Test 09/17/20 10:54 09/17/20 12:35 09/17/20 16:40 09/17/20 18:02 Glucose (Fingerstick) 206 mg/dL (70-99) 243 mg/dL (70-99) Troponin I Quantitative 0.820 ng/mL (0.000-0.055) Heparin Anti-Xa Act, Unfractionated 0.89 IU/mL (0.30-0.70) Test 09/18/20 00:30 09/18/20 03:32 09/18/20 06:44 09/18/20 08:15 Heparin Anti-Xa Act, Unfractionated 0.96 IU/mL (0.30-0.70) Glucose (Fingerstick) 195 mg/dL (70-99) 191 mg/dL (70-99) O2 Saturation 90 % (92-99) Arterial Blood pH 7.46 (7.35-7.45) Arterial Blood pCO2 at Patient Temp 42 mmHg (35-46) Arterial Blood pO2 at Patient Temp 59 mmHg (65-108) Arterial Blood HCO3 29 mmol/L (21-28) Arterial Blood Base Excess 5 mmol/L (-3-3) FiO2 100% vent Test 09/18/20 11:00 09/18/20 11:10 09/18/20 11:42 Thyroid Stimulating Hormone (TSH) 1.587 uIU/mL (0.358-3.74) White Blood Count 14.1 x10^3/uL (4.0-11.0) Red Blood Count 5.53 x10^6/uL (3.50-5.40) Hemoglobin 12.9 g/dL (12.0-15.5) Hematocrit 40.5 % (36.0-47.0) Mean Corpuscular Volume 73 fL (79-100) Mean Corpuscular Hemoglobin 23 pg (25-35) Mean Corpuscular Hemoglobin Concent 32 g/dL (31-37) Red Cell Distribution Width 18.3 % (11.5-14.5) Platelet Count 297 x10^3/uL (140-400) Heparin Anti-Xa Act, Unfractionated 0.43 IU/mL (0.30-0.70) Sodium Level 139 mmol/L (136-145) Potassium Level 4.5 mmol/L (3.5-5.1) Chloride Level 101 mmol/L (98-107) Carbon Dioxide Level 29 mmol/L (21-32) Anion Gap 9 (6-14) Blood Urea Nitrogen 71 mg/dL (7-20) Creatinine 1.6 mg/dL (0.6-1.0) Estimated GFR (Cockcroft-Gault) 38.9 BUN/Creatinine Ratio 44 (6-20) Glucose Level 221 mg/dL (70-99) Calcium Level 8.7 mg/dL (8.5-10.1) Total Bilirubin 0.4 mg/dL (0.2-1.0) Aspartate Amino Transf (AST/SGOT) 86 U/L (15-37) Alanine Aminotransferase (ALT/SGPT) 101 U/L (14-59) Alkaline Phosphatase 159 U/L (46-116) Total Protein 7.1 g/dL (6.4-8.2) Albumin 2.7 g/dL (3.4-5.0) Albumin/Globulin Ratio 0.6 (1.0-1.7) Glucose (Fingerstick) 228 mg/dL (70-99) Laboratory Tests Test 09/17/20 16:40 09/17/20 18:02 09/18/20 00:30 09/18/20 03:32 Heparin Anti-Xa Act, Unfractionated 0.89 IU/mL (0.30-0.70) 0.96 IU/mL (0.30-0.70) Glucose (Fingerstick) 243 mg/dL (70-99) 195 mg/dL (70-99) Test 09/18/20 06:44 09/18/20 08:15 09/18/20 11:00 09/18/20 11:10 Glucose (Fingerstick) 191 mg/dL (70-99) O2 Saturation 90 % (92-99) Arterial Blood pH 7.46 (7.35-7.45) Arterial Blood pCO2 at Patient Temp 42 mmHg (35-46) Arterial Blood pO2 at Patient Temp 59 mmHg (65-108) Arterial Blood HCO3 29 mmol/L (21-28) Arterial Blood Base Excess 5 mmol/L (-3-3) FiO2 100% vent Thyroid Stimulating Hormone (TSH) 1.587 uIU/mL (0.358-3.74) White Blood Count 14.1 x10^3/uL (4.0-11.0) Red Blood Count 5.53 x10^6/uL (3.50-5.40) Hemoglobin 12.9 g/dL (12.0-15.5) Hematocrit 40.5 % (36.0-47.0) Mean Corpuscular Volume 73 fL (79-100) Mean Corpuscular Hemoglobin 23 pg (25-35) Mean Corpuscular Hemoglobin Concent 32 g/dL (31-37) Red Cell Distribution Width 18.3 % (11.5-14.5) Platelet Count 297 x10^3/uL (140-400) Heparin Anti-Xa Act, Unfractionated 0.43 IU/mL (0.30-0.70) Sodium Level 139 mmol/L (136-145) Potassium Level 4.5 mmol/L (3.5-5.1) Chloride Level 101 mmol/L (98-107) Carbon Dioxide Level 29 mmol/L (21-32) Anion Gap 9 (6-14) Blood Urea Nitrogen 71 mg/dL (7-20) Creatinine 1.6 mg/dL (0.6-1.0) Estimated GFR (Cockcroft-Gault) 38.9 BUN/Creatinine Ratio 44 (6-20) Glucose Level 221 mg/dL (70-99) Calcium Level 8.7 mg/dL (8.5-10.1) Total Bilirubin 0.4 mg/dL (0.2-1.0) Aspartate Amino Transf (AST/SGOT) 86 U/L (15-37) Alanine Aminotransferase (ALT/SGPT) 101 U/L (14-59) Alkaline Phosphatase 159 U/L (46-116) Total Protein 7.1 g/dL (6.4-8.2) Albumin 2.7 g/dL (3.4-5.0) Albumin/Globulin Ratio 0.6 (1.0-1.7) Test 09/18/20 11:42 Glucose (Fingerstick) 228 mg/dL (70-99) Medications Current Medications Enoxaparin Sodium (Lovenox 40mg Syringe) 40 mg Q24H SQ ; Start 09/16/20 at 23:00; Stop 09/16/20 at 23:27; Status DC Ceftriaxone Sodium (Rocephin) 1 gm Q24H IVP Last administered on 09/17/20at 16:55; Start 09/17/20 at 17:00 Azithromycin 500 mg/Sodium Chloride 250 ml @ 250 mls/hr Q24H IV Last a dministered on 09/17/20at 16:55; Start 09/17/20 at 17:00; Stop 09/18/20 at 09:21; Status DC Dexamethasone Sodium Phosphate (Decadron) 6 mg DAILY IVP Last administered on 09/18/20at 07:54; Start 09/17/20 at 09:00 Propofol 100 ml @ 0 mls/hr CONT PRN IV PER PROTOCOL Last administered on 09/18/20at 12:58; Start 09/16/20 at 23:00 Fentanyl Citrate (Fentanyl 2ml Vial) 50 mcg PRN Q1HR PRN IV SEE COMMENTS Last administered on 09/18/20at 08:05; Start 09/16/20 at 23:00 Famotidine (Pepcid Vial) 20 mg DAILY IVP Last administered on 09/18/20at 07:53; Start 09/17/20 at 09:00 Enoxaparin Sodium (Lovenox 40mg Syringe) 40 mg Q24H SQ ; Start 09/17/20 at 21:00; Stop 09/17/20 at 10:03; Status DC Enoxaparin Sodium (Lovenox 40mg Syringe) 40 mg 1X ONCE SQ Last administered on 09/17/20at 00:28; Start 09/16/20 at 23:30; Stop 09/16/20 at 23:31; Status DC Dextrose (Dextrose 50%-Water Syringe) 12.5 gm PRN Q15MIN PRN IV SEE COMMENTS; Start 09/17/20 at 07:45; Stop 09/17/20 at 08:50; Status DC Vancomycin HCl (Vanco Per Pharmacy) 1 each PRN DAILY PRN MC SEE COMMENTS Last administered on 09/17/20at 09:25; Start 09/17/20 at 08:00 Vancomycin HCl 2 gm/Sodium Chloride 500 ml @ 250 mls/hr 1X ONCE IV Last administered on 09/17/20at 08:32; Start 09/17/20 at 08:00; Stop 09/17/20 at 09:59; Status DC Insulin Human Lispro (HumaLOG) 0-7 UNITS Q6H PRN SQ hyperglycemia; Start 09/17/20 at 08:45; Stop 09/17/20 at 08:48; Status DC Dextrose (Dextrose 50%-Water Syringe) 12.5 gm PRN Q15MIN PRN IV SEE COMMENTS; Start 09/17/20 at 08:45 Insulin Human Lispro (HumaLOG) 0-7 UNITS PRN Q6HRS PRN SQ hyperglycemia; Start 09/17/20 at 09:00; Stop 09/17/20 at 11:06; Status DC Vancomycin HCl 1.5 gm/Sodium Chloride 500 ml @ 250 mls/hr Q24H IV Last administered on 09/18/20at 07:54; Start 09/18/20 at 08:30 Vancomycin HCl (Vancomycin Trough Level) 1 each 1X ONCE MC ; Start 09/19/20 at 08:00; Stop 09/19/20 at 08:01 Heparin Sodium/ Dextrose 250 ml @ 0 mls/hr CONT PRN IV PER PROTOCOL Last administered on 09/18/20at 06:48; Start 09/17/20 at 10:00 Heparin Sodium (Porcine) (Heparin Sodium) 2,650 unit PRN Q6HRS PRN IV FOR UFH LEVEL LESS THAN 0.2; Start 09/17/20 at 10:00 Insulin Human Lispro (HumaLOG) 0-7 UNITS Q6HRS SQ Last administered on 09/18/20at 06:46; Start 09/17/20 at 12:00; Stop 09/18/20 at 08:23; Status DC Carvedilol (Coreg) 12.5 mg BIDWMEALS PO Last administered on 09/18/20at 07:53; Start 09/17/20 at 17:00 Carvedilol (Coreg) 12.5 mg 1X ONCE PO ; Start 09/17/20 at 14:15; Stop 09/17/20 at 14:16; Status DC Nitroglycerin/ Dextrose 250 ml @ 1.5 mls/hr CONT PRN IV SEE I/O RECORD; Start 09/17/20 at 13:45 Nystatin (Nystop) 1 bart BID TP Last administered on 09/18/20at 07:54; Start 09/17/20 at 21:00 Insulin Human Lispro (HumaLOG) 0-9 UNITS Q6H SQ ; Start 09/18/20 at 08:30; Stop 09/18/20 at 08:34; Status DC Dextrose (Dextrose 50%-Water Syringe) 12.5 gm PRN Q15MIN PRN IV SEE COMMENTS; Start 09/18/20 at 08:30 Insulin Human Lispro (HumaLOG) 0-9 UNITS Q6H SQ Last administered on 09/18/20at 11:44; Start 09/18/20 at 12:00 Active Scripts Active Reported Metolazone 5 Mg Tablet 5 Mg PO QODAY Imuran (Azathioprine) 50 Mg Tablet 1 Tab PO DAILY 30 Days Albuterol Sulfate Neb Soln (Albuterol Sulfate) 2.5 Mg/3 Ml Vial.neb 1 Vial NEB PRN Q4HRS Carvedilol (Carvedilol) 12.5 Mg Tablet 12.5 Mg PO BIDWMEALS Melatonin 5 Mg Capsule 3 Mg PO HS Duoneb 0.5-3(2.5) Mg/3 Ml (Albuterol/Ipratropium) 3 Ml Ampul.neb 3 Ml NEB QID Klor-Con 10 (Potassium Chloride) 10 Meq Tablet.er 1 Tab PO DAILY 30 Days Eliquis (Apixaban) 5 Mg Tablet 5 Mg PO BID Torsemide 20 Mg Tablet 1 Tab PO BID Metformin Hcl 1,000 Mg Tablet 1,000 Mg PO BIDWMEALS Oxycodone HCl 5 Mg Tablet 10 Mg PO PRN Q6HRS PRN Ambien (Zolpidem Tartrate) 5 Mg Tablet 5 Mg PO PRN QHS PRN Levothyroxine Sodium 125 Mcg Tablet 1 Tab PO DAILY Gabapentin (Gabapentin) 300 Mg Capsule 300 Mg PO BID Lantus Solostar (Insulin Glargine,Hum.rec.anlog) 100 Unit/1 Ml Insuln.pen 20 Unit SQ QHS Insulin Lispro 100 Unit/1 Ml Vial 10 Unit SQ TID Vitals/I & O Vital Sign - Last 24 Hours 09/17/20 09/17/20 09/17/20 09/17/20 15:00 15:20 15:39 16:00 Temp 98.4 98.4 Pulse 76 74 Resp 20 20 B/P (MAP) 109/58 (75) 119/68 (85) Pulse Ox 92 94 91 O2 Delivery Ventilator Ventilator Mechanical Ventilator Ventilator 09/17/20 09/17/20 09/17/20 09/17/20 16:55 17:00 18:00 19:00 Pulse 76 75 77 73 Resp 20 20 20 B/P (MAP) 140/67 121/62 (81) 145/64 (91) 119/80 (93) Pulse Ox 98 88 93 O2 Delivery Ventilator Ventilator Ventilator 09/17/20 09/17/20 09/17/20 09/17/20 20:00 20:00 20:34 21:00 Temp 98.4 98.4 Pulse 70 68 Resp 20 20 B/P (MAP) 132/86 (101) 104/64 (77) Pulse Ox 90 97 99 O2 Delivery Mechanical Ventilator Ventilator Ventilator Ventilator 09/17/20 09/17/20 09/17/20 09/17/20 22:00 23:00 23:08 23:16 Pulse 69 66 Resp 20 20 24 B/P (MAP) 119/80 (93) 145/81 (102) Pulse Ox 99 98 100 100 O2 Delivery Ventilator Ventilator Ventilator Ventilator 09/17/20 09/17/20 09/18/20 09/18/20 23:46 23:59 00:01 01:00 Temp 97.7 97.7 Pulse 66 63 Resp 20 20 B/P (MAP) 140/83 (102) 145/80 (101) Pulse Ox 99 99 98 O2 Delivery Mechanical Ventilator Ventilator Ventilator 09/18/20 09/18/20 09/18/20 09/18/20 02:00 03:00 03:56 04:00 Pulse 63 63 Resp 20 20 B/P (MAP) 149/83 (105) 166/92 (116) Pulse Ox 99 99 100 O2 Delivery Ventilator Ventilator Ventilator Mechanical Ventilator 09/18/20 09/18/20 09/18/20 09/18/20 04:00 05:00 06:00 07:00 Temp 98.2 98.2 Pulse 65 64 64 64 Resp 20 20 20 20 B/P (MAP) 165/94 (117) 151/88 (109) 153/82 (105) 155/86 (109) Pulse Ox 98 98 98 98 O2 Delivery Ventilator Ventilator Ventilator Ventilator 09/18/20 09/18/20 09/18/20 09/18/20 07:41 07:53 08:00 08:06 Temp 98.4 98.4 Pulse 63 71 Resp 20 B/P (MAP) 153/81 123/74 (90) Pulse Ox 94 95 O2 Delivery Mechanical Ventilator Ventilator Ventilator 09/18/20 09/18/20 09/18/20 09/18/20 09:00 10:00 11:00 11:51 Pulse 65 64 63 Resp 20 20 20 B/P (MAP) 133/76 (95) 146/78 (100) 154/85 (108) Pulse Ox 98 92 91 92 O2 Delivery Ventilator Ventilator Ventilator Ventilator 09/18/20 09/18/20 09/18/20 12:00 12:00 13:00 Temp 98.4 98.4 Pulse 58 60 Resp 20 20 B/P (MAP) 167/87 (113) 155/80 (105) Pulse Ox 93 94 O2 Delivery Ventilator Mechanical Ventilator Ventilator Intake and Output 09/17/20 09/17/20 09/18/20 15:00 23:00 07:00 Intake Total 600 ml 1102 ml 1317.8 ml Output Total 490 ml 205 ml 585 ml Balance 110 ml 897 ml 732.8 ml Justifications for Admission Other Justification VIKTOR BRUNNER MD Sep 18, 2020 14:16
[2020-09-18] MEDS: cefTRIAXone IV Push 1 GM VIAL. IVP SCH (17:02)
[2020-09-19] VITALS (24 sets, daily range): BP systolic 108–199; BP diastolic 55–99
[2020-09-19] MEDS: INSULIN LISPRO 300 UNITS/3 ML VIAL. SQ SCH ×5 (00:05→23:51)
[2020-09-19] MEDS: PROPOFOL 100 ML IV PRN ×5 (01:40→21:48)
[2020-09-19] MEDS: fentaNYL PF VIAL 100 MCG/2 ML VIAL IV PRN (03:05)
[2020-09-19] MEDS ORDERED: PERFLUTREN PROTEIN-A MICROSPHR 0.22 MG/ML 3 ML VIAL. IV ONE ×3 (07:21→12:30)
[2020-09-19 08:12] LABS: BASE EXCESS ABG 5 mmol/L (-3-3); HCO3 ABG 30 mmol/L (21-28); PCO2 ABG 44 mmHg (35-46); PO2 ABG 58 mmHg (65-108); SAT O2 ABG 90 % (92-99)
[2020-09-19 08:13] LABS: FIO2 ABG 100
[2020-09-19] MEDS: CARVEDILOL 12.5 MG TABLET. PO SCH ×2 (08:30→17:23)
[2020-09-19] MEDS: FAMOTIDINE 20 MG/2 ML VIAL IVP SCH (08:31)
[2020-09-19] MEDS: DEXAMETHASONE SOD PHOS 4 MG/ML VIAL IVP SCH (08:31)
[2020-09-19] MEDS: NYSTATIN TOPICAL POWDER 15GM BOTTLE. TP SCH ×2 (08:32→20:16)
--- NOTE | 2020-09-19 08:34 | PN ---
DATE: 09/19/2020 SUBJECTIVE: The patient continued to be sedated, intubated and mechanically ventilated. She is maintaining her oxygen saturation at 94%-95% on FiO2 of 100%. Nursing staff did not voice any concerns that she has generally uneventful night. PHYSICAL EXAMINATION: GENERAL: When I examined her, there was no pallor, jaundice, cyanosis or thyromegaly. No jugular venous distention. No limb edema. VITAL SIGNS: Her heart rate was 62, blood pressure was 177/90, temperature was 97.6, respiratory rate was 20, and her oxygen saturation was 94% on FiO2 of 100%. HEAD, EYES, EARS, NOSE AND THROAT: Showed normocephalic, atraumatic. She has orotracheal and orogastric tube in place. HEART: Showed normal first and second heart sounds. No gallop or murmur. CHEST: Clear to auscultation. No crepitation or rhonchi. ABDOMEN: Distended, soft, nontender. NEUROLOGIC: She is heavily sedated. Her intake over the last 24 hours was 3000, output was 1280. LABORATORY DATA: Her white cell count as of yesterday was 14,000, hemoglobin 12.9, hematocrit 40, MCV 73, and platelet count 297,000. Her chemistry as of yesterday showed a serum sodium 139, potassium 4.5, chloride 101, bicarbonate 29, anion gap of 9, BUN 71, creatinine 1.6, estimated GFR was 38 mL per minute, her glucose was 221, calcium was 8.7. Total bilirubin is normal. AST, ALT, alkaline phosphatase are all elevated. Total protein 7.1, albumin was 2.7. Her blood gases as of yesterday showed a pH of 7.46, pCO2 of 42, pO2 of 59, bicarbonate 29, oxygen saturation was 90% on FiO2 of 100%. ASSESSMENT: This is a 65-year-old -[place] female patient who was seen originally at [facility] Emergency Room with: 1. Acute on chronic hypoxic hypercapnic respiratory failure that required intubation and mechanical ventilation. 2. Community-acquired pneumonia. 3. Acute on chronic diastolic congestive heart failure. 4. Acute on chronic kidney injury. 5. Her COVID-19 test was negative. 6. Morbid obesity and obstructive sleep apnea. 7. Elevated troponin, felt by the spinning operator to be type 2 demand ischemia. 8. The patient has multiple other medical problems including: A. Hypertension. B. Type 2 diabetes mellitus. C. Sarcoidosis. D. Chronic obstructive pulmonary disease. E. History of pulmonary embolism. PLAN: 1. To obviously continue with sedation and mechanical ventilation. 2. Continue with heparin drip as per Cardiology recommendation. 3. Continue with IV antibiotic in the form of vancomycin, Zithromax and ceftriaxone. 4. Continue with nutritional support. 5. Continue to monitor her blood sugar and adjust insulin as needed. Her blood pressure is high and I will continue some of her antihypertensive medications. DARION MANCINI MD DR: NICHOLAS/emmett JOB#: [id number] / [id number]
[2020-09-19] MEDS: VANCOMYCIN 1.5 GM in IV NORMAL SALINE 500ML BAG 500 ML IV SCH (10:22)
--- NOTE | 2020-09-19 11:23 | PDOC ---
PULMONARY PROGRESS NOTES DATE: 09/19/20 TIME: 11:23 Subjective Patient remains on vent support, 100% and a PEEP of 10 On heparin drip Other concerns from nursing Vitals Vital Signs Date Time Temp Pulse Resp B/P (MAP) Pulse Ox O2 Delivery O2 Flow Rate FiO2 09/19/20 10:00 60 20 178/92 (120) 93 Ventilator 09/19/20 07:00 97.6 97.6 Comments Intubated/sedated Lungs: Clear Cardiovascular: S1, S2 Abdomen: Soft Extremities: Other (Bilateral lower extremity +1 edema) Skin: Warm, Dry Labs Laboratory Tests Test 09/17/20 12:35 09/17/20 16:40 09/17/20 18:02 09/18/20 00:30 Troponin I Quantitative 0.820 ng/mL (0.000-0.055) Heparin Anti-Xa Act, Unfractionated 0.89 IU/mL (0.30-0.70) 0.96 IU/mL (0.30-0.70) Glucose (Fingerstick) 243 mg/dL (70-99) Test 09/18/20 03:32 09/18/20 06:44 09/18/20 08:15 09/18/20 11:00 Glucose (Fingerstick) 195 mg/dL (70-99) 191 mg/dL (70-99) O2 Saturation 90 % (92-99) Arterial Blood pH 7.46 (7.35-7.45) Arterial Blood pCO2 at Patient Temp 42 mmHg (35-46) Arterial Blood pO2 at Patient Temp 59 mmHg (65-108) Arterial Blood HCO3 29 mmol/L (21-28) Arterial Blood Base Excess 5 mmol/L (-3-3) FiO2 100% vent Thyroid Stimulating Hormone (TSH) 1.587 uIU/mL (0.358-3.74) Test 09/18/20 11:10 09/18/20 11:42 09/18/20 17:00 09/18/20 17:10 White Blood Count 14.1 x10^3/uL (4.0-11.0) Red Blood Count 5.53 x10^6/uL (3.50-5.40) Hemoglobin 12.9 g/dL (12.0-15.5) Hematocrit 40.5 % (36.0-47.0) Mean Corpuscular Volume 73 fL (79-100) Mean Corpuscular Hemoglobin 23 pg (25-35) Mean Corpuscular Hemoglobin Concent 32 g/dL (31-37) Red Cell Distribution Width 18.3 % (11.5-14.5) Platelet Count 297 x10^3/uL (140-400) Heparin Anti-Xa Act, Unfractionated 0.43 IU/mL (0.30-0.70) 0.33 IU/mL (0.30-0.70) Sodium Level 139 mmol/L (136-145) Potassium Level 4.5 mmol/L (3.5-5.1) Chloride Level 101 mmol/L (98-107) Carbon Dioxide Level 29 mmol/L (21-32) Anion Gap 9 (6-14) Blood Urea Nitrogen 71 mg/dL (7-20) Creatinine 1.6 mg/dL (0.6-1.0) Estimated GFR (Cockcroft-Gault) 38.9 BUN/Creatinine Ratio 44 (6-20) Glucose Level 221 mg/dL (70-99) Calcium Level 8.7 mg/dL (8.5-10.1) Total Bilirubin 0.4 mg/dL (0.2-1.0) Aspartate Amino Transf (AST/SGOT) 86 U/L (15-37) Alanine Aminotransferase (ALT/SGPT) 101 U/L (14-59) Alkaline Phosphatase 159 U/L (46-116) Total Protein 7.1 g/dL (6.4-8.2) Albumin 2.7 g/dL (3.4-5.0) Albumin/Globulin Ratio 0.6 (1.0-1.7) Glucose (Fingerstick) 228 mg/dL (70-99) 238 mg/dL (70-99) Test 09/19/20 00:04 09/19/20 05:43 09/19/20 07:45 Glucose (Fingerstick) 233 mg/dL (70-99) 207 mg/dL (70-99) O2 Saturation 90 % (92-99) Arterial Blood pH 7.45 (7.35-7.45) Arterial Blood pCO2 at Patient Temp 44 mmHg (35-46) Arterial Blood pO2 at Patient Temp 58 mmHg (65-108) Arterial Blood HCO3 30 mmol/L (21-28) Arterial Blood Base Excess 5 mmol/L (-3-3) FiO2 100 Laboratory Tests Test 09/18/20 11:42 09/18/20 17:00 09/18/20 17:10 09/19/20 00:04 Glucose (Fingerstick) 228 mg/dL (70-99) 238 mg/dL (70-99) 233 mg/dL (70-99) Heparin Anti-Xa Act, Unfractionated 0.33 IU/mL (0.30-0.70) Test 09/19/20 05:43 09/19/20 07:45 Glucose (Fingerstick) 207 mg/dL (70-99) O2 Saturation 90 % (92-99) Arterial Blood pH 7.45 (7.35-7.45) Arterial Blood pCO2 at Patient Temp 44 mmHg (35-46) Arterial Blood pO2 at Patient Temp 58 mmHg (65-108) Arterial Blood HCO3 30 mmol/L (21-28) Arterial Blood Base Excess 5 mmol/L (-3-3) FiO2 100 Medications Active Scripts Medications Dose Route/Sig Max Daily Dose Days Date Category Metolazone 5 Mg Tablet 5 Mg PO QODAY 09/17/20 Reported Imuran (Azathioprine) 50 Mg Tablet 1 Tab PO DAILY 30 09/17/20 Reported Albuterol Sulfate Neb Soln (Albuterol Sulfate) 2.5 Mg/3 Ml Vial.neb 1 Vial NEB PRN Q4HRS 09/17/20 Reported Carvedilol (Carvedilol) 12.5 Mg Tablet 12.5 Mg PO BIDWMEALS 09/17/20 Reported Melatonin 5 Mg Capsule 3 Mg PO HS 09/17/20 Reported Duoneb 0.5-3(2.5) Mg/3 Ml (Albuterol/Ipratropium) 3 Ml Ampul.neb 3 Ml NEB QID 09/17/20 Reported Klor-Con 10 (Potassium Chloride) 10 Meq Tablet.er 1 Tab PO DAILY 30 09/17/20 Reported Eliquis (Apixaban) 5 Mg Tablet 5 Mg PO BID 09/17/20 Reported Torsemide 20 Mg Tablet 1 Tab PO BID 09/17/20 Reported Metformin Hcl 1,000 Mg Tablet 1,000 Mg PO BIDWMEALS 09/17/20 Reported Oxycodone HCl 5 Mg Tablet 10 Mg PO PRN Q6HRS PRN 09/17/20 Reported Ambien (Zolpidem Tartrate) 5 Mg Tablet 5 Mg PO PRN QHS PRN 09/17/20 Reported Levothyroxine Sodium 125 Mcg Tablet 1 Tab PO DAILY 09/17/20 Reported Gabapentin (Gabapentin) 300 Mg Capsule 300 Mg PO BID 09/17/20 Reported Lantus Solostar (Insulin Glargine,Hum.rec.anlog) 100 Unit/1 Ml Insuln.pen 20 Unit SQ QHS 09/17/20 Reported Insulin Lispro 100 Unit/1 Ml Vial 10 Unit SQ TID 09/17/20 Reported Comments CXR IMPRESSION: 1. Patchy bilateral opacities, improved in the left upper lung zone. 2. Small bilateral pleural effusions. 3. Stable life-support devices. Impression . IMPRESSION: 1. Acute respiratory failure, multifactorial, requiring intubation 2. Abnormal x-ray. 3. Acute on chronic kidney injury. 4. Chronic heart failure. 5. Possible bacterial pneumonia. 6. COVID-19-- negative 7. Metabolic toxic encephalopathy. 8. Elevated liver chemistries. 9. Moderate protein malnutrition, present upon admission. Plan . PLAN: Continue current vent support, assist-control Fi02 100% and PEEP 10 Follow chest x-ray and ABG, make changes as needed, no changes today Continue empiric antibiotics, currently on vancomycin and Rocephin Continue heparin drip per cardiology recommendations Patient has a history of pulmonary embolism reported to be on Eliquis outpatient, bilateral lower extremity Dopplers were negative Monitor renal function COVID-19 negative Follow cardiology recommendations Hyperglycemia per PCP HTN per PCP/cardiology DVT/GI prophylaxis Critical care time [id number] RADHA UNGER MD Sep 19, 2020 11:23
--- NOTE | 2020-09-19 11:42 | CARD ---
MR#: [id number] Date of Study: 09/19/2020 Ordering Physician: RADHA UNGER, Referring Physician: RADHA UNGER Tech: Sydney Alberts [facility] APPROVED REPORT EXAM: Two-dimensional and M-mode echocardiogram with Doppler and color Doppler. Other Information Quality : Technically LimitedHR: 61bpm Rhythm : NSR INDICATION Congestive Heart Failure Echo Enhancing Agent Indication: Endocardial border delineation Agent/Amount Used: Optison 3mL RISK FACTORS Hypertension Obesity Diabetes 2D DIMENSIONS RVDd3.6 (2.9-3.5cm)Left Atrium(2D)4.0 (1.6-4.0cm) IVSd1.0 (0.7-1.1cm)Aortic Root(2D)2.7 (2.0-3.7cm) LVDd4.8 (3.9-5.9cm)LVOT Diameter2.0 (1.8-2.4cm) PWd0.9 (0.7-1.1cm)LVDs3.2 (2.5-4.0cm) FS (%) 33.8 %SV67.4 ml Aortic Valve AoV Peak Yuri.144.7cm/sAoV VTI25.9cm AO Peak GR.8.4mmHgLVOT Peak Yuri.96.6cm/s AO Mean GR.3mmHgAVA (VMAX)2.14cm2 AI P 1/2 [id number] Mitral Valve MV E Hwtzqyki86.7cm/sMV DECEL [id number] MV A Gllukesp16.5cm/sE/A Ratio0.8 Pulmonary Valve PV Peak Pkkwymsb95.3cm/s Tricuspid Valve TR P. [id number]/sTR Peak Gr.34mmHg LEFT VENTRICLE The left ventricle is normal size. There is normal left ventricular wall thickness. The left ventricu lar systolic function is normal and the ejection fraction is within normal range. Ejection fraction 55-60%. There is normal LV segmental wall motion. Transmitral Doppler flow pattern is Grade I-abnorma l relaxation pattern. RIGHT VENTRICLE The right ventricle is moderately dilated. The right ventricle is borderline hypertrophied. Systolic function is mildly reduced. ATRIA The left atrium size is normal. The right atrium is moderately dilated. The interatrial septum is int act with no evidence for an atrial septal defect or patent foramen ovale as noted on 2-D or Doppler i maging. AORTIC VALVE The aortic valve is normal in structure and function. Doppler and Color Flow revealed mild aortic reg urgitation. There is no significant aortic valvular stenosis. MITRAL VALVE The mitral valve is normal in structure and function. Mild mitral annular calcification. There is no mitral valve stenosis. Doppler and Color-flow revealed trace mitral regurgitation. TRICUSPID VALVE The tricuspid valve is normal in structure and function. Doppler and Color Flow revealed mild tricusp id regurgitation. Estimated PAP 50 mmHg. PULMONIC VALVE The pulmonary valve is normal in structure and function. Doppler and Color Flow revealed moderate pul rigoberto valvular regurgitation. GREAT VESSELS The aortic root is normal in size. The ascending aorta is moderately dilated. The IVC is dilated and collapses <50% with inspiration. PERICARDIAL EFFUSION There is no evidence of significant pericardial effusion. Critical Notification Critical Value: No <Conclusion> The left ventricle is normal size. The left ventricular systolic function is normal and the ejection fraction is within normal range. Ejection fraction 55-60%. The right ventricle is moderately dilated. Doppler and Color Flow revealed mild aortic regurgitation. There is no significant aortic valvular stenosis. Doppler and Color-flow revealed trace mitral regurgitation. Doppler and Color Flow revealed mild tricuspid regurgitation. Estimated PAP 50 mmHg. Doppler and Color Flow revealed moderate pulmonic valvular regurgitation. The ascending aorta is moderately dilated. Signed by : Reagan Toth MD Electronically Approved : 09/19/2020 11:41:53
[2020-09-19 11:46] LABS: BASO % 0 % (0-3); EOS # 0.1 x10^3/uL (0.0-0.7); EOS % 1 % (0-3); HEMATOCRIT 42.7 % (36.0-47.0); LYMPH # 0.8 x10^3/uL (1.0-4.8); LYMPH % 6 % (24-48); MEAN CORPUSCULAR HEMOGLOBIN 22 pg (25-35); MEAN CORPUSCULAR HGB CONC 31 g/dL (31-37); MEAN CORPUSCULAR VOLUME 73 fL (79-100); MONO # 0.6 x10^3/uL (0.0-1.1); MONO % 4 % (0-9); NEUT # 13.3 x10^3/uL (1.8-7.7); NEUT % 89 % (31-73); PLATELET COUNT 309 x10^3/uL (140-400); RED BLOOD COUNT 5.82 x10^6/uL (3.50-5.40); RED CELL DISTRIBUTION WIDTH 18.3 % (11.5-14.5); WHITE BLOOD COUNT 14.9 x10^3/uL (4.0-11.0)
[2020-09-19 12:03] LABS: CALCIUM 8.7 mg/dL (8.5-10.1); CREATININE 1.2 mg/dL (0.6-1.0); GFR 54.2; POTASSIUM 4.4 mmol/L (3.5-5.1)
[2020-09-19] MEDS: VANCOMYCIN PER PHARMACY MC PRN (13:50)
[2020-09-19] MEDS: NITROGLYCERIN PREMIX 250 ML IV PRN ×2 (14:50→23:50)
[2020-09-19] MEDS: HEPARIN 25,000UTS/250ML PREMIX 250 ML IV PRN (14:57)
--- NOTE | 2020-09-19 15:39 | NUR ---
SS following for discharge planning. SS reviewed pt chart and discussed with pt RN. Pt is from home with spouse and is currently on the vent at 100%. COVID19 negative. Pt on IV Vancomycin, IV Rocephin, Heparin drip, and Nitro drip. Not stable. SS will continue to follow for discharge planning.
[2020-09-19] MEDS: cefTRIAXone IV Push 1 GM VIAL. IVP SCH (17:24)
--- NOTE | 2020-09-19 18:20 | PDOC ---
PROGRESS NOTES Date of Service DATE: 09/19/20 TIME: 18:17 Subjective Subjective Patient seen and examined Objective Objective Vital Signs Date Time Temp Pulse Resp B/P (MAP) Pulse Ox O2 Delivery O2 Flow Rate FiO2 09/19/20 17:23 64 184/89 09/19/20 17:00 20 97 Ventilator 09/19/20 16:00 98.5 98.5 Intake and Output 09/19/20 07:00 Intake Total 3055 ml Output Total 1725 ml Balance 1330 ml Intake IV Total 1217 ml Tube Feeding 1238 ml Other 600 ml Output Urine Total 1725 ml Gastric Drainage Total 0 ml Physical Exam Abdomen: Normal bowel sounds Heart: Regular rate General: Other (Intubated) Lungs: Other (Decreased breath sounds) Assessment Assessment 1. Acute respiratory failure. Intubated. Multifactorial with AECOPD, pneumonia and probable heart failure. Patient has been placed on antibiotics and is being monitored by the pulmonary service. We'll considered mild diuresis. Creatinine has improved to 1.2. Echo as per Covid guidelines. 2. Minimally elevated troponin at 0.975 as a peak. No acute ischemic EKG changes. Consistent with demand ischemia. Will rule out. We'll check an echocardiogram if the patient rules out for Covid. 3. History of COPD. Pulmonary treatment as above. 4. NICOLAS. Creatinine improved. We'll continue to monitor. 5. Diabetes mellitus. Initial glucose of 206. As per the pulmonary service. Comment Review of Relevant I have reviewed the following items isaiah (where applicable) has been applied. Labs Laboratory Tests Test 09/18/20 00:30 09/18/20 03:32 09/18/20 06:44 09/18/20 08:15 Heparin Anti-Xa Act, Unfractionated 0.96 IU/mL (0.30-0.70) Glucose (Fingerstick) 195 mg/dL (70-99) 191 mg/dL (70-99) O2 Saturation 90 % (92-99) Arterial Blood pH 7.46 (7.35-7.45) Arterial Blood pCO2 at Patient Temp 42 mmHg (35-46) Arterial Blood pO2 at Patient Temp 59 mmHg (65-108) Arterial Blood HCO3 29 mmol/L (21-28) Arterial Blood Base Excess 5 mmol/L (-3-3) FiO2 100% vent Test 09/18/20 11:00 09/18/20 11:10 09/18/20 11:42 09/18/20 17:00 Thyroid Stimulating Hormone (TSH) 1.587 uIU/mL (0.358-3.74) White Blood Count 14.1 x10^3/uL (4.0-11.0) Red Blood Count 5.53 x10^6/uL (3.50-5.40) Hemoglobin 12.9 g/dL (12.0-15.5) Hematocrit 40.5 % (36.0-47.0) Mean Corpuscular Volume 73 fL (79-100) Mean Corpuscular Hemoglobin 23 pg (25-35) Mean Corpuscular Hemoglobin Concent 32 g/dL (31-37) Red Cell Distribution Width 18.3 % (11.5-14.5) Platelet Count 297 x10^3/uL (140-400) Heparin Anti-Xa Act, Unfractionated 0.43 IU/mL (0.30-0.70) Sodium Level 139 mmol/L (136-145) Potassium Level 4.5 mmol/L (3.5-5.1) Chloride Level 101 mmol/L (98-107) Carbon Dioxide Level 29 mmol/L (21-32) Anion Gap 9 (6-14) Blood Urea Nitrogen 71 mg/dL (7-20) Creatinine 1.6 mg/dL (0.6-1.0) Estimated GFR (Cockcroft-Gault) 38.9 BUN/Creatinine Ratio 44 (6-20) Glucose Level 221 mg/dL (70-99) Calcium Level 8.7 mg/dL (8.5-10.1) Total Bilirubin 0.4 mg/dL (0.2-1.0) Aspartate Amino Transf (AST/SGOT) 86 U/L (15-37) Alanine Aminotransferase (ALT/SGPT) 101 U/L (14-59) Alkaline Phosphatase 159 U/L (46-116) Total Protein 7.1 g/dL (6.4-8.2) Albumin 2.7 g/dL (3.4-5.0) Albumin/Globulin Ratio 0.6 (1.0-1.7) Glucose (Fingerstick) 228 mg/dL (70-99) 238 mg/dL (70-99) Test 09/18/20 17:10 09/19/20 00:04 09/19/20 05:43 09/19/20 07:45 Heparin Anti-Xa Act, Unfractionated 0.33 IU/mL (0.30-0.70) Glucose (Fingerstick) 233 mg/dL (70-99) 207 mg/dL (70-99) O2 Saturation 90 % (92-99) Arterial Blood pH 7.45 (7.35-7.45) Arterial Blood pCO2 at Patient Temp 44 mmHg (35-46) Arterial Blood pO2 at Patient Temp 58 mmHg (65-108) Arterial Blood HCO3 30 mmol/L (21-28) Arterial Blood Base Excess 5 mmol/L (-3-3) FiO2 100 Test 09/19/20 11:15 09/19/20 17:28 White Blood Count 14.9 x10^3/uL (4.0-11.0) Red Blood Count 5.82 x10^6/uL (3.50-5.40) Hemoglobin 13.0 g/dL (12.0-15.5) Hematocrit 42.7 % (36.0-47.0) Mean Corpuscular Volume 73 fL (79-100) Mean Corpuscular Hemoglobin 22 pg (25-35) Mean Corpuscular Hemoglobin Concent 31 g/dL (31-37) Red Cell Distribution Width 18.3 % (11.5-14.5) Platelet Count 309 x10^3/uL (140-400) Neutrophils (%) (Auto) 89 % (31-73) Lymphocytes (%) (Auto) 6 % (24-48) Monocytes (%) (Auto) 4 % (0-9) Eosinophils (%) (Auto) 1 % (0-3) Basophils (%) (Auto) 0 % (0-3) Neutrophils # (Auto) 13.3 x10^3/uL (1.8-7.7) Lymphocytes # (Auto) 0.8 x10^3/uL (1.0-4.8) Monocytes # (Auto) 0.6 x10^3/uL (0.0-1.1) Eosinophils # (Auto) 0.1 x10^3/uL (0.0-0.7) Basophils # (Auto) 0.0 x10^3/uL (0.0-0.2) Heparin Anti-Xa Act, Unfractionated 0.14 IU/mL (0.30-0.70) Sodium Level 142 mmol/L (136-145) Potassium Level 4.4 mmol/L (3.5-5.1) Chloride Level 103 mmol/L (98-107) Carbon Dioxide Level 29 mmol/L (21-32) Anion Gap 10 (6-14) Blood Urea Nitrogen 47 mg/dL (7-20) Creatinine 1.2 mg/dL (0.6-1.0) Estimated GFR (Cockcroft-Gault) 54.2 Glucose Level 271 mg/dL (70-99) Calcium Level 8.7 mg/dL (8.5-10.1) Glucose (Fingerstick) 320 mg/dL (70-99) Laboratory Tests Test 09/19/20 00:04 09/19/20 05:43 09/19/20 07:45 09/19/20 11:15 Glucose (Fingerstick) 233 mg/dL (70-99) 207 mg/dL (70-99) O2 Saturation 90 % (92-99) Arterial Blood pH 7.45 (7.35-7.45) Arterial Blood pCO2 at Patient Temp 44 mmHg (35-46) Arterial Blood pO2 at Patient Temp 58 mmHg (65-108) Arterial Blood HCO3 30 mmol/L (21-28) Arterial Blood Base Excess 5 mmol/L (-3-3) FiO2 100 White Blood Count 14.9 x10^3/uL (4.0-11.0) Red Blood Count 5.82 x10^6/uL (3.50-5.40) Hemoglobin 13.0 g/dL (12.0-15.5) Hematocrit 42.7 % (36.0-47.0) Mean Corpuscular Volume 73 fL (79-100) Mean Corpuscular Hemoglobin 22 pg (25-35) Mean Corpuscular Hemoglobin Concent 31 g/dL (31-37) Red Cell Distribution Width 18.3 % (11.5-14.5) Platelet Count 309 x10^3/uL (140-400) Neutrophils (%) (Auto) 89 % (31-73) Lymphocytes (%) (Auto) 6 % (24-48) Monocytes (%) (Auto) 4 % (0-9) Eosinophils (%) (Auto) 1 % (0-3) Basophils (%) (Auto) 0 % (0-3) Neutrophils # (Auto) 13.3 x10^3/uL (1.8-7.7) Lymphocytes # (Auto) 0.8 x10^3/uL (1.0-4.8) Monocytes # (Auto) 0.6 x10^3/uL (0.0-1.1) Eosinophils # (Auto) 0.1 x10^3/uL (0.0-0.7) Basophils # (Auto) 0.0 x10^3/uL (0.0-0.2) Heparin Anti-Xa Act, Unfractionated 0.14 IU/mL (0.30-0.70) Sodium Level 142 mmol/L (136-145) Potassium Level 4.4 mmol/L (3.5-5.1) Chloride Level 103 mmol/L (98-107) Carbon Dioxide Level 29 mmol/L (21-32) Anion Gap 10 (6-14) Blood Urea Nitrogen 47 mg/dL (7-20) Creatinine 1.2 mg/dL (0.6-1.0) Estimated GFR (Cockcroft-Gault) 54.2 Glucose Level 271 mg/dL (70-99) Calcium Level 8.7 mg/dL (8.5-10.1) Test 09/19/20 17:28 Glucose (Fingerstick) 320 mg/dL (70-99) Medications Current Medications Enoxaparin Sodium (Lovenox 40mg Syringe) 40 mg Q24H SQ ; Start 09/16/20 at 23:00; Stop 09/16/20 at 23:27; Status DC Ceftriaxone Sodium (Rocephin) 1 gm Q24H IVP Last administered on 09/19/20at 17:24; Start 09/17/20 at 17:00 Azithromycin 500 mg/Sodium Chloride 250 ml @ 250 mls/hr Q24H IV Last administered on 09/17/20at 16:55; Start 09/17/20 at 17:00; Stop 09/18/20 at 09:21; Status DC Dexamethasone Sodium Phosphate (Decadron) 6 mg DAILY IVP Last administered on 09/19/20at 08:31; Start 09/17/20 at 09:00 Propofol 100 ml @ 0 mls/hr CONT PRN IV PER PROTOCOL Last administered on 09/19/20at 17:33; Start 09/16/20 at 23:00 Fentanyl Citrate (Fentanyl 2ml Vial) 50 mcg PRN Q1HR PRN IV SEE COMMENTS Last administered on 09/19/20at 03:05; Start 09/16/20 at 23:00 Famotidine (Pepcid Vial) 20 mg DAILY IVP Last administered on 09/19/20at 08:31; Start 09/17/20 at 09:00 Enoxaparin Sodium (Lovenox 40mg Syringe) 40 mg Q24H SQ ; Start 09/17/20 at 21:00; Stop 09/17/20 at 10:03; Status DC Enoxaparin Sodium (Lovenox 40mg Syringe) 40 mg 1X ONCE SQ Last administered on 09/17/20at 00:28; Start 09/16/20 at 23:30; Stop 09/16/20 at 23:31; Status DC Dextrose (Dextrose 50%-Water Syringe) 12.5 gm PRN Q15MIN PRN IV SEE COMMENTS; Start 09/17/20 at 07:45; Stop 09/17/20 at 08:50; Status DC Vancomycin HCl (Vanco Per Pharmacy) 1 each PRN DAILY PRN MC SEE COMMENTS Last administered on 09/19/20at 13:50; Start 09/17/20 at 08:00 Vancomycin HCl 2 gm/Sodium Chloride 500 ml @ 250 mls/hr 1X ONCE IV Last administered on 09/17/20at 08:32; Start 09/17/20 at 08:00; Stop 09/17/20 at 09:59; Status DC Insulin Human Lispro (HumaLOG) 0-7 UNITS Q6H PRN SQ hyperglycemia; Start 09/17/20 at 08:45; Stop 09/17/20 at 08:48; Status DC Dextrose (Dextrose 50%-Water Syringe) 12.5 gm PRN Q15MIN PRN IV SEE COMMENTS; Start 09/17/20 at 08:45; Stop 09/18/20 at 15:41; Status DC Insulin Human Lispro (HumaLOG) 0-7 UNITS PRN Q6HRS PRN SQ hyperglycemia; Start 09/17/20 at 09:00; Stop 09/17/20 at 11:06; Status DC Vancomycin HCl 1.5 gm/Sodium Chloride 500 ml @ 250 mls/hr Q24H IV Last administered on 09/19/20at 10:22; Start 09/18/20 at 08:30 Vancomycin HCl (Vancomycin Trough Level) 1 each 1X ONCE MC Last administered on 09/19/20at 08:00; Start 09/19/20 at 08:00; Stop 09/19/20 at 08:01; Status DC Heparin Sodium/ Dextrose 250 ml @ 0 mls/hr CONT PRN IV PER PROTOCOL Last administered on 09/19/20at 14:57; Start 09/17/20 at 10:00 Heparin Sodium (Porcine) (Heparin Sodium) 2,650 unit PRN Q6HRS PRN IV FOR UFH LEVEL LESS THAN 0.2 Last administered on 09/19/20at 13:22; Start 09/17/20 at 10:00 Insulin Human Lispro (HumaLOG) 0-7 UNITS Q6HRS SQ Last administered on 09/18/20at 06:46; Start 09/17/20 at 12:00; Stop 09/18/20 at 08:23; Status DC Carvedilol (Coreg) 12.5 mg BIDWMEALS PO Last administered on 09/19/20at 17:23; Start 09/17/20 at 17:00 Carvedilol (Coreg) 12.5 mg 1X ONCE PO ; Start 09/17/20 at 14:15; Stop 09/17/20 at 14:16; Status DC Nitroglycerin/ Dextrose 250 ml @ 1.5 mls/hr CONT PRN IV SEE I/O RECORD Last administered on 09/19/20at 14:50; Start 09/17/20 at 13:45 Nystatin (Nystop) 1 bart BID TP Last administered on 09/19/20at 08:32; Start 09/17/20 at 21:00 Insulin Human Lispro (HumaLOG) 0-9 UNITS Q6H SQ ; Start 09/18/20 at 08:30; Stop 09/18/20 at 08:34; Status DC Dextrose (Dextrose 50%-Water Syringe) 12.5 gm PRN Q15MIN PRN IV SEE COMMENTS; Start 09/18/20 at 08:30 Insulin Human Lispro (HumaLOG) 0-9 UNITS Q6H SQ Last administered on 09/19/20at 17:30; Start 09/18/20 at 12:00 Perflutren Protein Type A Microsphe (Optison) 0.66 mg STK-MED ONCE IV ; Start 09/19/20 at 07:21; Stop 09/19/20 at 07:21; Status DC Info (Anti-Coagulation Monitoring By Pharmacy) 1 each PRN DAILY PRN MC SEE COMMENTS; Start 09/19/20 at 08:15 Amlodipine Besylate (Norvasc) 10 mg DAILY PO Last administered on 09/19/20at 08:30; Start 09/19/20 at 09:00 Insulin Glargine (Lantus Syringe) 20 unit QHS SQ ; Start 09/19/20 at 21:00 Perflutren Protein Type A Microsphe (Optison) 0.66 mg 1X ONCE IV ; Start 09/19/20 at 12:30; Stop 09/19/20 at 12:31; Status DC Vancomycin HCl (Vancomycin Trough Level) 1 each 1X ONCE MC ; Start 09/20/20 at 08:00; Stop 09/20/20 at 08:01 Active Scripts Active Reported Metolazone 5 Mg Tablet 5 Mg PO QODAY Imuran (Azathioprine) 50 Mg Tablet 1 Tab PO DAILY 30 Days Albuterol Sulfate Neb Soln (Albuterol Sulfate) 2.5 Mg/3 Ml Vial.neb 1 Vial NEB PRN Q4HRS Carvedilol (Carvedilol) 12.5 Mg Tablet 12.5 Mg PO BIDWMEALS Melatonin 5 Mg Capsule 3 Mg PO HS Duoneb 0.5-3(2.5) Mg/3 Ml (Albuterol/Ipratropium) 3 Ml Ampul.neb 3 Ml NEB QID Klor-Con 10 (Potassium Chloride) 10 Meq Tablet.er 1 Tab PO DAILY 30 Days Eliquis (Apixaban) 5 Mg Tablet 5 Mg PO BID Torsemide 20 Mg Tablet 1 Tab PO BID Metformin Hcl 1,000 Mg Tablet 1,000 Mg PO BIDWMEALS Oxycodone HCl 5 Mg Tablet 10 Mg PO PRN Q6HRS PRN Ambien (Zolpidem Tartrate) 5 Mg Tablet 5 Mg PO PRN QHS PRN Levothyroxine Sodium 125 Mcg Tablet 1 Tab PO DAILY Gabapentin (Gabapentin) 300 Mg Capsule 300 Mg PO BID Lantus Solostar (Insulin Glargine,Hum.rec.anlog) 100 Unit/1 Ml Insuln.pen 20 Unit SQ QHS Insulin Lispro 100 Unit/1 Ml Vial 10 Unit SQ TID Vitals/I & O Vital Sign - Last 24 Hours 09/18/20 09/18/20 09/18/20 09/18/20 19:00 20:00 20:00 20:47 Temp 98.7 98.7 Pulse 60 61 Resp 20 20 B/P (MAP) 155/84 (107) 171/85 (113) Pulse Ox 94 94 93 O2 Delivery Ventilator Mechanical Ventilator Ventilator Ventilator 09/18/20 09/18/20 09/18/20 09/18/20 21:00 22:00 23:00 23:32 Pulse 60 60 60 Resp 20 20 20 B/P (MAP) 169/82 (111) 177/91 (119) 167/84 (111) Pulse Ox 94 94 93 O2 Delivery Ventilator Ventilator Ventilator Ventilator 09/18/20 09/19/20 09/19/20 09/19/20 23:35 00:00 00:00 00:06 Temp 98.5 98.5 Pulse 60 Resp 20 B/P (MAP) 172/86 (114) Pulse Ox 95 94 O2 Delivery Ventilator Mechanical Ventilator Ventilator Ventilator 09/19/20 09/19/20 09/19/20 09/19/20 01:00 02:00 03:00 03:05 Pulse 60 61 60 Resp 20 20 20 B/P (MAP) 163/84 (110) 176/88 (117) 153/82 (105) Pulse Ox 94 91 92 O2 Delivery Ventilator Ventilator Ventilator Ventilator 09/19/20 09/19/20 09/19/20 09/19/20 03:49 04:00 04:00 05:00 Temp 97.7 97.7 Pulse 60 61 Resp 20 20 B/P (MAP) 165/85 (111) 154/78 (103) Pulse Ox 94 94 O2 Delivery Ventilator Ventilator Mechanical Ventilator Ventilator 09/19/20 09/19/20 09/19/20 09/19/20 05:17 06:00 07:00 07:45 Temp 97.6 97.6 Pulse 63 62 Resp 20 20 B/P (MAP) 160/85 (110) 177/90 (119) Pulse Ox 95 93 93 95 O2 Delivery Ventilator Ventilator Ventilator Ventilator 09/19/20 09/19/20 09/19/20/4/21 08:00 08:15 08:30 08:30 Pulse 65 63 63 Resp 20 B/P (MAP) 199/99 (132) 199/99 199/99 Pulse Ox 94 O2 Delivery Ventilator Mechanical Ventilator 09/19/20 09/19/20 09/19/20 09/19/20 09:00 10:00 11:00 12:00 Pulse 61 60 63 Resp 20 20 20 B/P (MAP) 180/95 (123) 178/92 (120) 180/91 (120) Pulse Ox 97 93 91 O2 Delivery Ventilator Ventilator Ventilator Mechanical Ventilator 09/19/20 09/19/20 09/19/20 09/19/20 12:00 12:10 13:00 14:00 Temp 98.6 98.6 Pulse 60 63 64 Resp 20 20 20 B/P (MAP) 176/93 (120) 187/95 (125) 184/95 (124) Pulse Ox 91 92 92 95 O2 Delivery Ventilator Ventilator Ventilator Ventilator 09/19/20 09/19/20 09/19/20 09/19/20 15:00 15:40 16:00 16:00 Temp 98.5 98.5 Pulse 64 67 Resp 20 20 B/P (MAP) 165/71 (102) 181/91 (121) Pulse Ox 95 95 96 O2 Delivery Ventilator Ventilator Ventilator Mechanical Ventilator 09/19/20 09/19/20 17:00 17:23 Pulse 66 64 Resp 20 B/P (MAP) 179/74 (109) 184/89 Pulse Ox 97 O2 Delivery Ventilator Intake and Output 09/18/20 09/18/20 09/19/20 15:00 23:00 07:00 Intake Total 700 ml 1112 ml 1243 ml Output Total 450 ml 750 ml 525 ml Balance 250 ml 362 ml 718 ml Justifications for Admission Other Justification VIKTOR BRUNNER MD Sep 19, 2020 18:20
[2020-09-19] MEDS: INSULIN GLARGINE SYRINGE. SQ SCH (20:20)
[2020-09-20] VITALS (24 sets, daily range): BP systolic 105–179; BP diastolic 49–88
[2020-09-20] MEDS: PROPOFOL 100 ML IV PRN ×6 (01:11→22:06)
[2020-09-20] MEDS: INSULIN LISPRO 300 UNITS/3 ML VIAL. SQ SCH ×3 (05:44→17:17)
--- NOTE | 2020-09-20 07:54 | PN ---
DATE: 09/20/2020 SUBJECTIVE: The patient continued to be sedated, intubated and mechanically ventilated. The nursing staff stated that her blood pressure continues to be high despite being on multiple antihypertensive medications, to which nitroglycerin drip was added. PHYSICAL EXAMINATION: GENERAL: When I examined her this morning, she was pale. No jaundice, cyanosis or thyromegaly. No jugular venous distention. No lower limb edema. VITAL SIGNS: Her heart rate was 56, blood pressure was 175/90, temperature was 98.7, respiratory rate was 20, and oxygen saturation was 97% on FiO2 of 100%. HEENT: Showed normocephalic, atraumatic with orotracheal and orogastric tube in place. NECK: Supple. HEART: Normal first and second heart sounds. No gallop or murmur. CHEST: Showed central trachea. Equal bilateral chest expansion, air entry, vesicular sounds. I could not appreciate any crepitation or rhonchi anteriorly. ABDOMEN: Markedly distended, soft, and nontender. NEUROLOGIC: She is heavily sedated. Her intake over the last 24 hours was 3000, output was 1725. LABORATORY DATA: As of yesterday, her white cell count was 14,900, hemoglobin 13, hematocrit 42, MCV 73 and platelet count of 309,000. Her chemistry showed a serum sodium of 142, potassium 4.4, chloride 103, bicarbonate 29, anion gap of 10, BUN 47, creatinine 1.2, estimated GFR was 57 mL per minute. Her blood sugar is somewhat better controlled. Venous Doppler ultrasound of both lower extremities showed no Doppler evidence of lower extremity deep vein thrombosis. ASSESSMENT: This is a 65-year-old -[place] female patient who was seen originally at [facility] Emergency Room with: 1. Acute on chronic hypoxic hypercapnic respiratory failure that required intubation and mechanical ventilation. 2. Community-acquired pneumonia. 3. Acute on chronic diastolic congestive heart failure. 4. Acute on chronic kidney injury that is improving. 5. Her COVID-19 test was negative. 6. Morbid obesity and obstructive sleep apnea. 7. Elevated troponin, felt by the research program manager to be type 2 demand ischemia. 8. The patient has multiple other medical problems including: A. Hypertension. B. Type 2 diabetes mellitus. C. Sarcoidosis. D. Chronic obstructive pulmonary disease. E. History of pulmonary embolism. PLAN: 1. Obviously to continue with sedation and mechanical ventilation. 2. Continue with heparin drip as per Cardiology recommendation. 3. Continue with IV antibiotics. 4. Continue nutritional support. 5. Continue to monitor her blood sugar and adjust insulin as needed. 6. I will add hydralazine 25 mg 3 times a day as her heart rate is low and we can increase her Coreg. DARION MANCINI MD DR: NICHOLAS/emmett JOB#: [id number] / [id number]
[2020-09-20] MEDS: fentaNYL PF VIAL 100 MCG/2 ML VIAL IV PRN (07:58)
[2020-09-20] MEDS: CARVEDILOL 12.5 MG TABLET. PO SCH ×2 (07:59→17:02)
[2020-09-20] MEDS: DEXAMETHASONE SOD PHOS 4 MG/ML VIAL IVP SCH (07:59)
[2020-09-20] MEDS: FAMOTIDINE 20 MG/2 ML VIAL IVP SCH (07:59)
[2020-09-20] MEDS: NYSTATIN TOPICAL POWDER 15GM BOTTLE. TP SCH ×2 (08:00→20:53)
[2020-09-20 08:09] LABS: BASE EXCESS ABG 8 mmol/L (-3-3); HCO3 ABG 32 mmol/L (21-28); PCO2 ABG 44 mmHg (35-46); PO2 ABG 78 mmHg (65-108); SAT O2 ABG 96 % (92-99)
--- NOTE | 2020-09-20 08:51 | PDOC ---
PULMONARY PROGRESS NOTES DATE: 09/20/20 TIME: 08:50 Subjective Patient remains on vent support, 100% and a PEEP of 10 On heparin drip Other concerns from nursing Vitals Vital Signs Date Time Temp Pulse Resp B/P (MAP) Pulse Ox O2 Delivery O2 Flow Rate FiO2 09/20/20 08:02 60 152/84 09/20/20 08:02 97 Ventilator 09/20/20 06:00 20 09/20/20 04:00 98.7 98.7 Comments Intubated/sedated Lungs: Clear Cardiovascular: S1, S2 Abdomen: Soft Extremities: Other (Bilateral lower extremity +1 edema) Skin: Warm, Dry Labs Laboratory Tests Test 09/18/20 11:00 09/18/20 11:10 09/18/20 11:42 09/18/20 17:00 Thyroid Stimulating Hormone (TSH) 1.587 uIU/mL (0.358-3.74) White Blood Count 14.1 x10^3/uL (4.0-11.0) Red Blood Count 5.53 x10^6/uL (3.50-5.40) Hemoglobin 12.9 g/dL (12.0-15.5) Hematocrit 40.5 % (36.0-47.0) Mean Corpuscular Volume 73 fL (79-100) Mean Corpuscular Hemoglobin 23 pg (25-35) Mean Corpuscular Hemoglobin Concent 32 g/dL (31-37) Red Cell Distribution Width 18.3 % (11.5-14.5) Platelet Count 297 x10^3/uL (140-400) Heparin Anti-Xa Act, Unfractionated 0.43 IU/mL (0.30-0.70) Sodium Level 139 mmol/L (136-145) Potassium Level 4.5 mmol/L (3.5-5.1) Chloride Level 101 mmol/L (98-107) Carbon Dioxide Level 29 mmol/L (21-32) Anion Gap 9 (6-14) Blood Urea Nitrogen 71 mg/dL (7-20) Creatinine 1.6 mg/dL (0.6-1.0) Estimated GFR (Cockcroft-Gault) 38.9 BUN/Creatinine Ratio 44 (6-20) Glucose Level 221 mg/dL (70-99) Calcium Level 8.7 mg/dL (8.5-10.1) Total Bilirubin 0.4 mg/dL (0.2-1.0) Aspartate Amino Transf (AST/SGOT) 86 U/L (15-37) Alanine Aminotransferase (ALT/SGPT) 101 U/L (14-59) Alkaline Phosphatase 159 U/L (46-116) Total Protein 7.1 g/dL (6.4-8.2) Albumin 2.7 g/dL (3.4-5.0) Albumin/Globulin Ratio 0.6 (1.0-1.7) Glucose (Fingerstick) 228 mg/dL (70-99) 238 mg/dL (70-99) Test 09/18/20 17:10 09/19/20 00:04 09/19/20 05:43 09/19/20 07:45 Heparin Anti-Xa Act, Unfractionated 0.33 IU/mL (0.30-0.70) Glucose (Fingerstick) 233 mg/dL (70-99) 207 mg/dL (70-99) O2 Saturation 90 % (92-99) Arterial Blood pH 7.45 (7.35-7.45) Arterial Blood pCO2 at Patient Temp 44 mmHg (35-46) Arterial Blood pO2 at Patient Temp 58 mmHg (65-108) Arterial Blood HCO3 30 mmol/L (21-28) Arterial Blood Base Excess 5 mmol/L (-3-3) FiO2 100 Test 09/19/20 11:15 09/19/20 17:28 09/19/20 18:52 09/19/20 23:15 White Blood Count 14.9 x10^3/uL (4.0-11.0) Red Blood Count 5.82 x10^6/uL (3.50-5.40) Hemoglobin 13.0 g/dL (12.0-15.5) Hematocrit 42.7 % (36.0-47.0) Mean Corpuscular Volume 73 fL (79-100) Mean Corpuscular Hemoglobin 22 pg (25-35) Mean Corpuscular Hemoglobin Concent 31 g/dL (31-37) Red Cell Distribution Width 18.3 % (11.5-14.5) Platelet Count 309 x10^3/uL (140-400) Neutrophils (%) (Auto) 89 % (31-73) Lymphocytes (%) (Auto) 6 % (24-48) Monocytes (%) (Auto) 4 % (0-9) Eosinophils (%) (Auto) 1 % (0-3) Basophils (%) (Auto) 0 % (0-3) Neutrophils # (Auto) 13.3 x10^3/uL (1.8-7.7) Lymphocytes # (Auto) 0.8 x10^3/uL (1.0-4.8) Monocytes # (Auto) 0.6 x10^3/uL (0.0-1.1) Eosinophils # (Auto) 0.1 x10^3/uL (0.0-0.7) Basophils # (Auto) 0.0 x10^3/uL (0.0-0.2) Heparin Anti-Xa Act, Unfractionated 0.14 IU/mL (0.30-0.70) 0.41 IU/mL (0.30-0.70) Sodium Level 142 mmol/L (136-145) Potassium Level 4.4 mmol/L (3.5-5.1) Chloride Level 103 mmol/L (98-107) Carbon Dioxide Level 29 mmol/L (21-32) Anion Gap 10 (6-14) Blood Urea Nitrogen 47 mg/dL (7-20) Creatinine 1.2 mg/dL (0.6-1.0) Estimated GFR (Cockcroft-Gault) 54.2 Glucose Level 271 mg/dL (70-99) Calcium Level 8.7 mg/dL (8.5-10.1) Glucose (Fingerstick) 320 mg/dL (70-99) 188 mg/dL (70-99) Test 09/20/20 02:00 09/20/20 05:39 Heparin Anti-Xa Act, Unfractionated 0.33 IU/mL (0.30-0.70) Glucose (Fingerstick) 195 mg/dL (70-99) Laboratory Tests Test 09/19/20 11:15 09/19/20 17:28 09/19/20 18:52 09/19/20 23:15 White Blood Count 14.9 x10^3/uL (4.0-11.0) Red Blood Count 5.82 x10^6/uL (3.50-5.40) Hemoglobin 13.0 g/dL (12.0-15.5) Hematocrit 42.7 % (36.0-47.0) Mean Corpuscular Volume 73 fL (79-100) Mean Corpuscular Hemoglobin 22 pg (25-35) Mean Corpuscular Hemoglobin Concent 31 g/dL (31-37) Red Cell Distribution Width 18.3 % (11.5-14.5) Platelet Count 309 x10^3/uL (140-400) Neutrophils (%) (Auto) 89 % (31-73) Lymphocytes (%) (Auto) 6 % (24-48) Monocytes (%) (Auto) 4 % (0-9) Eosinophils (%) (Auto) 1 % (0-3) Basophils (%) (Auto) 0 % (0-3) Neutrophils # (Auto) 13.3 x10^3/uL (1.8-7.7) Lymphocytes # (Auto) 0.8 x10^3/uL (1.0-4.8) Monocytes # (Auto) 0.6 x10^3/uL (0.0-1.1) Eosinophils # (Auto) 0.1 x10^3/uL (0.0-0.7) Basophils # (Auto) 0.0 x10^3/uL (0.0-0.2) Heparin Anti-Xa Act, Unfractionated 0.14 IU/mL (0.30-0.70) 0.41 IU/mL (0.30-0.70) Sodium Level 142 mmol/L (136-145) Potassium Level 4.4 mmol/L (3.5-5.1) Chloride Level 103 mmol/L (98-107) Carbon Dioxide Level 29 mmol/L (21-32) Anion Gap 10 (6-14) Blood Urea Nitrogen 47 mg/dL (7-20) Creatinine 1.2 mg/dL (0.6-1.0) Estimated GFR (Cockcroft-Gault) 54.2 Glucose Level 271 mg/dL (70-99) Calcium Level 8.7 mg/dL (8.5-10.1) Glucose (Fingerstick) 320 mg/dL (70-99) 188 mg/dL (70-99) Test 09/20/20 02:00 09/20/20 05:39 Heparin Anti-Xa Act, Unfractionated 0.33 IU/mL (0.30-0.70) Glucose (Fingerstick) 195 mg/dL (70-99) Medications Active Scripts Medications Dose Route/Sig Max Daily Dose Days Date Category Metolazone 5 Mg Tablet 5 Mg PO QODAY 09/17/20 Reported Imuran (Azathioprine) 50 Mg Tablet 1 Tab PO DAILY 30 09/17/20 Reported Albuterol Sulfate Neb Soln (Albuterol Sulfate) 2.5 Mg/3 Ml Vial.neb 1 Vial NEB PRN Q4HRS 09/17/20 Reported Carvedilol (Carvedilol) 12.5 Mg Tablet 12.5 Mg PO BIDWMEALS 09/17/20 Reported Melatonin 5 Mg Capsule 3 Mg PO HS 09/17/20 Reported Duoneb 0.5-3(2.5) Mg/3 Ml (Albuterol/Ipratropium) 3 Ml Ampul.neb 3 Ml NEB QID 09/17/20 Reported Klor-Con 10 (Potassium Chloride) 10 Meq Tablet.er 1 Tab PO DAILY 30 09/17/20 Reported Eliquis (Apixaban) 5 Mg Tablet 5 Mg PO BID 09/17/20 Reported Torsemide 20 Mg Tablet 1 Tab PO BID 09/17/20 Reported Metformin Hcl 1,000 Mg Tablet 1,000 Mg PO BIDWMEALS 09/17/20 Reported Oxycodone HCl 5 Mg Tablet 10 Mg PO PRN Q6HRS PRN 09/17/20 Reported Ambien (Zolpidem Tartrate) 5 Mg Tablet 5 Mg PO PRN QHS PRN 09/17/20 Reported Levothyroxine Sodium 125 Mcg Tablet 1 Tab PO DAILY 09/17/20 Reported Gabapentin (Gabapentin) 300 Mg Capsule 300 Mg PO BID 09/17/20 Reported Lantus Solostar (Insulin Glargine,Hum.rec.anlog) 100 Unit/1 Ml Insuln.pen 20 Unit SQ QHS 09/17/20 Reported Insulin Lispro 100 Unit/1 Ml Vial 10 Unit SQ TID 09/17/20 Reported Comments CXR IMPRESSION: 1. Patchy bilateral opacities, improved in the left upper lung zone. 2. Small bilateral pleural effusions. 3. Stable life-support devices. Impression . IMPRESSION: 1. Acute respiratory failure, multifactorial, requiring intubation 2. Abnormal x-ray. 3. Acute on chronic kidney injury. 4. Chronic heart failure. 5. Possible bacterial pneumonia. 6. COVID-19-- negative 7. Metabolic toxic encephalopathy. 8. Elevated liver chemistries. 9. Moderate protein malnutrition, present upon admission. Plan . PLAN: Continue current vent support, assist-control Fi02 100% and PEEP 10 Follow chest x-ray and ABG, make changes as needed, no changes today Continue empiric antibiotics, currently on vancomycin and Rocephin Continue heparin drip per cardiology recommendations Patient has a history of pulmonary embolism ,on Eliquis outpatient, bilateral lower extremity Dopplers were negative ,on heparin now Monitor renal function COVID-19 negative Follow cardiology recommendations Hyperglycemia per PCP HTN per PCP/cardiology DVT/GI prophylaxis Critical care time 30 min ANDRIY LEONE MD Sep 20, 2020 08:51
[2020-09-20] MEDS ORDERED: hydrALAZINE 25 MG TABLET PO SCH (09:00)
[2020-09-20 09:05] LABS: FIO2 ABG 100/VENT
[2020-09-20 09:07] LABS: VANC TR 16.9 mcg/mL (10.0-20.0)
[2020-09-20] MEDS: ANTI-COAG MONITOR BY PHARMACY. MC PRN (09:41)
[2020-09-20] MEDS: VANCOMYCIN 1.5 GM in IV NORMAL SALINE 500ML BAG 500 ML IV SCH (09:42)
[2020-09-20] MEDS: VANCOMYCIN PER PHARMACY MC PRN (09:44)
--- NOTE | 2020-09-20 09:44 | NUR ---
Pharmacy Vancomycin Dosing Note S: Consulted to monitor and dose vancomycin started 09/17/20. O: MORTEZA MCKEON is a 65 year old F with Pneumonia, . Other Antibiotics: ROCEPHIN LABS: Last BUN: 47 Last Creatinine: 1.2 Creatinine Clearance: 51 mL/min Last WBC: 14.9 Last Procalcitonin: - Tmax (past 24 hours): 98.7 Microbiology: I/O: 5602/8521 Drug Levels: Last Trough level: 16.9 on 09/20/20 at 0740 Last dose given 09/19/20 at 1022 Vancomycin Dosing: Dosing Weight: Actual Target Trough: 15-20 A: Based on: Therapeutic trough P: 1. Continue Vancomycin 1500 mg IV q24h 2. Follow up Trough level as needed 3. Pharmacy will continue to monitor, follow and adjust therapy as needed. YOANA SAUNDERS RPH, 09/20/20 [id number]
[2020-09-20] MEDS: NITROGLYCERIN PREMIX 250 ML IV PRN (09:48)
--- NOTE | 2020-09-20 12:37 | PDOC ---
CARDIO Progress Notes Date and Time Date of Service 09/20/2020 Time of Evaluation 1215 Subjective Subjective: Other (intubated, vent) Vitals Vitals Vital Signs Date Time Temp Pulse Resp B/P (MAP) Pulse Ox O2 Delivery O2 Flow Rate FiO2 09/20/20 11:58 97 Ventilator 09/20/20 10:00 62 20 132/68 (89) 09/20/20 08:00 98.3 98.3 Weight Weight [ ] Input and Output Intake and Output Intake and Output 09/20/20 07:00 Intake Total 3872 ml Output Total 4840 ml Balance -968 ml Intake IV Total 1791 ml Tube Feeding 1681 ml Other 400 ml Output Urine Total 4840 ml Gastric Drainage Total 0 ml Laboratory Labs Laboratory Tests Test 09/19/20 17:28 09/19/20 18:52 09/19/20 23:15 09/20/20 02:00 Glucose (Fingerstick) 320 mg/dL (70-99) 188 mg/dL (70-99) Heparin Anti-Xa Act, Unfractionated 0.41 IU/mL (0.30-0.70) 0.33 IU/mL (0.30-0.70) Test 09/20/20 05:39 09/20/20 07:40 09/20/20 08:00 09/20/20 11:18 Glucose (Fingerstick) 195 mg/dL (70-99) 205 mg/dL (70-99) Vancomycin Level Trough 16.9 mcg/mL (10.0-20.0) Vancomycin Last Dose Date 09/19/20 Vancomycin Last Dose Time 1030 O2 Saturation 96 % (92-99) Arterial Blood pH 7.48 (7.35-7.45) Arterial Blood pCO2 at Patient Temp 44 mmHg (35-46) Arterial Blood pO2 at Patient Temp 78 mmHg (65-108) Arterial Blood HCO3 32 mmol/L (21-28) Arterial Blood Base Excess 8 mmol/L (-3-3) FiO2 100/vent Physical Exam HEENT: Neck Supple W Full Motion Chest: Symmetric LUNGS: Other (intubated, vent) Heart: RRR (SR) Abdomen: Soft N/T Extremities: Other (1+ bilateral LE pitting edema) Neurology: other (sedation) Assessment Assessment 1. Acute respiratory failure: Multifactorial with AECOPD, pneumonia, CHF. Intubated/vent, covid neg 2. NSTEMI: peaked at 0.975, suspect demand mediated. EF and WM nml 3. AECOPD 4. Acute on chronic diastolic CHF 5. Metabolic encephalopathy 6. NICOLAS: improved 7. DM2 8. Hx of PE 9. HTN urgency Recommendations 1. DC NTG and heparin. May start back on home eliquis. Start on isordil, i ncrease hydralazine and continue norvasc via OG. Unable to increase coreg due to jordana issues 2. Secondary prevention measures 3. Lasix prn >4L UOP overnight. Renal sono and arterial duplex in AM 4. Vent in place, Optimization per pulmonary Justicifation of Admission Dx: Justifications for Admission: Justification of Admission Dx: Yes OSMAN CALERO [employer] Sep 20, 2020 12:37
[2020-09-20] MEDS ORDERED: hydrALAZINE 20 MG/ML VIAL. IVP PRN (12:45)
[2020-09-20] MEDS: ASPIRIN CHEWABLE 81 MG TABLET. PO SCH (14:47)
[2020-09-20] MEDS: ISOSORBIDE DINITRATE 10 MG TABLET. PO SCH ×2 (14:49→20:50)
--- NOTE | 2020-09-20 15:41 | NUR ---
SS following up with discharge planning. SS reviewed pt chart and discussed with pt RN. Pt is currently on the vent at 100%. COVID19 negative. Pt on IV Vancomycin, IV Rocephin, and IV Steroids. Not stable. SS will continue to follow for discharge planning.
[2020-09-20] MEDS: cefTRIAXone IV Push 1 GM VIAL. IVP SCH (17:03)
[2020-09-20] MEDS: APIXABAN 5 MG TABLET. PO SCH (20:50)
[2020-09-20] MEDS: INSULIN GLARGINE SYRINGE. SQ SCH (20:57)
[2020-09-21] VITALS (24 sets, daily range): BP systolic 77–164; BP diastolic 39–80
[2020-09-21] MEDS: INSULIN LISPRO 300 UNITS/3 ML VIAL. SQ SCH ×4 (00:03→17:46)
[2020-09-21] MEDS: PROPOFOL 100 ML IV PRN ×6 (01:50→17:46)
[2020-09-21] MEDS: fentaNYL PF VIAL 100 MCG/2 ML VIAL IV PRN (01:53)
[2020-09-21] MEDS: NYSTATIN TOPICAL POWDER 15GM BOTTLE. TP SCH ×2 (07:26→21:00)
[2020-09-21] MEDS: ISOSORBIDE DINITRATE 10 MG TABLET. PO SCH ×3 (07:27→21:00)
[2020-09-21] MEDS: ASPIRIN CHEWABLE 81 MG TABLET. PO SCH (07:27)
[2020-09-21] MEDS: DEXAMETHASONE SOD PHOS 4 MG/ML VIAL IVP SCH (07:27)
[2020-09-21] MEDS: FAMOTIDINE 20 MG/2 ML VIAL IVP SCH ×2 (07:27→20:58)
[2020-09-21] MEDS: CARVEDILOL 12.5 MG TABLET. PO SCH ×2 (07:28→17:13)
[2020-09-21] MEDS: APIXABAN 5 MG TABLET. PO SCH ×2 (07:28→21:00)
[2020-09-21 07:54] LABS: BASE EXCESS ABG 7 mmol/L (-3-3); HCO3 ABG 32 mmol/L (21-28); PCO2 ABG 48 mmHg (35-46); PO2 ABG 60 mmHg (65-108); SAT O2 ABG 91 % (92-99)
--- NOTE | 2020-09-21 08:01 | PN ---
DATE: 09/21/2020 SUBJECTIVE: The patient continued to be on mechanical ventilation, requiring an FiO2 of 100%. Her heparin drip and nitroglycerin drip were discontinued and she is back on her Eliquis. PHYSICAL EXAMINATION: GENERAL: When I examined her, she looked well and was clearly in no apparent respiratory distress. No pallor, jaundice, cyanosis, or thyromegaly. No jugular venous distension. No lower limb edema. VITAL SIGNS: Her heart rate was 60, blood pressure was 101/49, temperature was 98.2, respiratory rate was 20, and oxygen saturation was 91% on FiO2 of 100%. HEAD, EYES, EARS, NOSE AND THROAT: Showed normocephalic, atraumatic. She has orotracheal and orogastric tube. NECK: Supple. HEART: Normal first and second heart sounds. No gallop, rub or murmur. CHEST: Showed equal bilateral chest expansion, air entry, vesicular breath sounds. I could not really appreciate any crepitation or rhonchi anteriorly. ABDOMEN: Distended, soft, nontender. NEUROLOGIC: She is heavily sedated. Her intake over the last 24 hours was 3872, output was 4840. Her blood sugar is reasonably controlled. LABORATORY DATA: Her most recent chemistry showed a serum sodium 142, potassium 4.4, chloride 103, bicarbonate 29, anion gap of 10, BUN 47, creatinine 1.2, estimated GFR was 54 mL per minute. Her hemoglobin and hematocrit were normal. White cell count is 14,900 and platelet of 309,000. Her blood gases as of yesterday showed a pH of 7.48, pCO2 of 44, pO2 of 78, bicarbonate 32, and oxygen saturation was 96% on FiO2 of 100%. She had had a renal duplex ultrasound, the result of which is still pending at the time of this dictation. Today's labs also are still pending at the time of this dictation. ASSESSMENT: 1. Acute on chronic hypoxic hypercapnic respiratory failure that required intubation, mechanical ventilation. 2. Community-acquired pneumonia. 3. Acute on chronic diastolic congestive heart failure. 4. Acute on chronic kidney injury that is improving. 5. Her COVID-19 test was negative. 6. Morbid obesity and obstructive sleep apnea. 7. Elevated troponin, felt to be due to demand ischemia. 8. The patient has multiple other medical problems including: A. Hypertension. B. Type 2 diabetes mellitus. C. Sarcoidosis. D. Chronic obstructive pulmonary disease. E. History of pulmonary embolism. PLAN: Obviously to continue with sedation and mechanical ventilation. Her heparin and nitroglycerin drip were discontinued. She is back on her Eliquis. Continue with IV antibiotic. Continue with nutritional support. Continue to monitor her blood sugar and adjust insulin as needed. Her blood pressure is actually much better controlled now. DARION MANCINI MD DR: NICHOLAS/emmett JOB#: [id number] / [id number]
[2020-09-21] MEDS: VANCOMYCIN 1.5 GM in IV NORMAL SALINE 500ML BAG 500 ML IV SCH (08:15)
[2020-09-21 08:23] LABS: FIO2 ABG 100/VENT
[2020-09-21 08:58] LABS: CALCIUM 8.8 mg/dL (8.5-10.1); CREATININE 0.8 mg/dL (0.6-1.0); GFR 86.6
[2020-09-21] MEDS: VANCOMYCIN PER PHARMACY MC PRN (09:19)
--- NOTE | 2020-09-21 09:37 | RAD ---
MR#: [id number] Date of Study: 09/20/2020 Ordering Physician: OSMAN CALERO, Referring Physician: SOMAN CALERO, Tech: Junior Wallace MBA, RDMS, RVT, RDCS, RTR APPROVED REPORT Patient Location: IN-PATIENT Indications Uncontrolled HTN NICOLAS Renal Artery Doppler Right Renal Artery Left Renal Arter y Proximal 111.0/19.0 cm/secProximal 65.0/12.0 cm/sec Mid 126.0/24.0 cm/secMid 62.0/9.0 cm/sec Distal 145.0/28.0 cm/secDistal 34.0/7.0 cm/sec Renal/Aorta Ratio 1.20Renal/Aorta Ratio 0.85 Prox. Resistive Index 0.83Prox. Resistive Index 0.81 Mid Resistive Index 0.81Mid Resistive Index 0.85 Distal Resistive Index 0.81Distal Resistive Index 0.80 Rt. Segmental A. 19.0/5.0 cm/secLt. Segmental A. 37.0/9.0 cm/sec Renal Measurements RightLeft Kidney Ikdksb94.1 cm cmKidney Icjjdk05.4 cm cm Right Additional FindingsLeft Additional Findings Aortic Doppler VelocityWaveform Proximal Aorta 119.0 cm/sec Findings Technically difficult study. The aorta is notable for moderate diffuse plaque. Normal velocities. Normal renal to aortic ratios bilaterally. Velocities in the bilateral proximal mid and distal renal arteries are grossly within normal limits, the spectral waveforms are limited due to difficult imaging angles. Nonetheless, no clear evidence o f renal artery stenosis. Critical Notification Critical Value: No <Conclusion> 1. Technically difficult study but within these limitations no clear evidence of renal artery stenos is. Signed by : Josh aHhn, Electronically Approved : 09/21/2020 09:37:14
--- NOTE | 2020-09-21 10:04 | NUR ---
SS following up with discharge planning. SS reviewed pt chart and discussed with pt RN. Pt is currently on the vent at 100%. COVID19 negative. Pt on IV Vancomycin and IV Rocephin. Not stable. SS will continue to follow for discharge planning.
[2020-09-21] MEDS ORDERED: FUROSEMIDE 40 MG/4 ML VIAL. IVP ONE ×2 (10:30→12:00)
--- NOTE | 2020-09-21 10:50 | PDOC ---
OSMAN CALERO PRESS LOADER 09/21/20 1050: CARDIO Progress Notes Date and Time Date of Service 09/21/2020 Time of Evaluation 1010 Subjective Subjective: Other (sedated) Vitals Vitals Vital Signs Date Time Temp Pulse Resp B/P (MAP) Pulse Ox O2 Delivery O2 Flow Rate FiO2 09/21/20 10:00 63 20 118/55 (76) 88 Ventilator 09/21/20 08:00 98.6 98.6 Weight Weight [ ] Input and Output Intake and Output Intake and Output 09/21/20 07:00 Intake Total 3711 ml Output Total 2100 ml Balance 1611 ml Intake IV Total 1671 ml Tube Feeding 1615 ml Other 425 ml Output Urine Total 2100 ml Gastric Drainage Total 0 ml Laboratory Labs Laboratory Tests Test 09/20/20 11:18 09/20/20 17:15 09/20/20 23:59 09/21/20 06:05 Glucose (Fingerstick) 205 mg/dL (70-99) 297 mg/dL (70-99) 260 mg/dL (70-99) 167 mg/dL (70-99) Test 09/21/20 07:35 09/21/20 08:00 Heparin Anti-Xa Act, Unfractionated 0.88 IU/mL (0.30-0.70) Sodium Level 144 mmol/L (136-145) Potassium Level 4.0 mmol/L (3.5-5.1) Chloride Level 106 mmol/L (98-107) Carbon Dioxide Level 31 mmol/L (21-32) Anion Gap 7 (6-14) Blood Urea Nitrogen 31 mg/dL (7-20) Creatinine 0.8 mg/dL (0.6-1.0) Estimated GFR (Cockcroft-Gault) 86.6 Glucose Level 161 mg/dL (70-99) Calcium Level 8.8 mg/dL (8.5-10.1) Magnesium Level 2.3 mg/dL (1.8-2.4) O2 Saturation 91 % (92-99) Arterial Blood pH 7.45 (7.35-7.45) Arterial Blood pCO2 at Patient Temp 48 mmHg (35-46) Arterial Blood pO2 at Patient Temp 60 mmHg (65-108) Arterial Blood HCO3 32 mmol/L (21-28) Arterial Blood Base Excess 7 mmol/L (-3-3) FiO2 100/vent Physical Exam HEENT: Neck Supple W Full Motion Chest: Symmetric LUNGS: Other (intubated, vent) Heart: RRR (SR) Abdomen: Soft N/T Extremities: Other (1+ bilateral LE pitting edema) Neurology: other (sedated) Assessment Assessment 1. Acute respiratory failure: Multifactorial with AECOPD, pneumonia, CHF. Intubated/vent, covid neg 2. NSTEMI: peaked at 0.975, suspect demand mediated. EF and WM nml 3. AECOPD 4. Acute on chronic diastolic CHF 5. Metabolic encephalopathy 6. NICOLAS: improved 7. DM2 8. Hx of PE 9. HTN urgency: better. Negative for SHAUNA Recommendations 1. Continue eliquis. Continue current BP regimen via OG. Unable to increase coreg due to jordana issues 2. Secondary prevention measures 3. Lasix prn, x1 today 4. Vent in place, Optimization per pulmonary 5. Supportive care Justicifation of Admission Dx: Justifications for Admission: Justification of Admission Dx: Yes VIKTOR BRUNNER MD 09/21/202020: CARDIO Progress Notes Assessment Assessment Patient seen and evaluated. I agree with our nurse practitioners assessment and plan. Acute respiratory failure: Multifactorial with AECOPD, pneumonia, CHF. Intubated/vent, covid neg. continuing as per pulmonary. NSTEMI: peaked at 0.975, suspect demand mediated. EF and WM nml Acute on chronic diastolic CHF. Lasix as needed. NICOLAS: improved HTN urgency: improved. Negative for SHAUNA OSMAN CALERO APRN Sep 21, 2020 10:50 VIKTOR BRUNNER MD Sep 21, 2020 20:21
--- NOTE | 2020-09-21 11:36 | PDOC ---
PULMONARY PROGRESS NOTES DATE: 09/21/20 TIME: 11:32 Subjective Patient remains on vent support, 100% and a PEEP of 10 Other concerns from nursing Vitals Vital Signs Date Time Temp Pulse Resp B/P (MAP) Pulse Ox O2 Delivery O2 Flow Rate FiO2 09/21/20 11:19 88 Ventilator 09/21/20 11:00 65 20 125/55 (78) 09/21/20 08:00 98.6 98.6 Comments Intubated/sedated Lungs: Clear Cardiovascular: S1, S2 Abdomen: Soft Extremities: Other (Bilateral lower extremity +1 edema) Skin: Warm, Dry Labs Laboratory Tests Test 09/19/20 17:28 09/19/20 18:52 09/19/20 23:15 09/20/20 02:00 Glucose (Fingerstick) 320 mg/dL (70-99) 188 mg/dL (70-99) Heparin Anti-Xa Act, Unfractionated 0.41 IU/mL (0.30-0.70) 0.33 IU/mL (0.30-0.70) Test 09/20/20 05:39 09/20/20 07:40 09/20/20 08:00 09/20/20 11:18 Glucose (Fingerstick) 195 mg/dL (70-99) 205 mg/dL (70-99) Vancomycin Level Trough 16.9 mcg/mL (10.0-20.0) Vancomycin Last Dose Date 09/19/20 Vancomycin Last Dose Time 1030 O2 Saturation 96 % (92-99) Arterial Blood pH 7.48 (7.35-7.45) Arterial Blood pCO2 at Patient Temp 44 mmHg (35-46) Arterial Blood pO2 at Patient Temp 78 mmHg (65-108) Arterial Blood HCO3 32 mmol/L (21-28) Arterial Blood Base Excess 8 mmol/L (-3-3) FiO2 100/vent Test 09/20/20 17:15 09/20/20 23:59 09/21/20 06:05 09/21/20 07:35 Glucose (Fingerstick) 297 mg/dL (70-99) 260 mg/dL (70-99) 167 mg/dL (70-99) Heparin Anti-Xa Act, Unfractionated 0.88 IU/mL (0.30-0.70) Sodium Level 144 mmol/L (136-145) Potassium Level 4.0 mmol/L (3.5-5.1) Chloride Level 106 mmol/L (98-107) Carbon Dioxide Level 31 mmol/L (21-32) Anion Gap 7 (6-14) Blood Urea Nitrogen 31 mg/dL (7-20) Creatinine 0.8 mg/dL (0.6-1.0) Estimated GFR (Cockcroft-Gault) 86.6 Glucose Level 161 mg/dL (70-99) Calcium Level 8.8 mg/dL (8.5-10.1) Magnesium Level 2.3 mg/dL (1.8-2.4) Test 09/21/20 08:00 O2 Saturation 91 % (92-99) Arterial Blood pH 7.45 (7.35-7.45) Arterial Blood pCO2 at Patient Temp 48 mmHg (35-46) Arterial Blood pO2 at Patient Temp 60 mmHg (65-108) Arterial Blood HCO3 32 mmol/L (21-28) Arterial Blood Base Excess 7 mmol/L (-3-3) FiO2 100/vent Laboratory Tests Test 09/20/20 17:15 09/20/20 23:59 09/21/20 06:05 09/21/20 07:35 Glucose (Fingerstick) 297 mg/dL (70-99) 260 mg/dL (70-99) 167 mg/dL (70-99) Heparin Anti-Xa Act, Unfractionated 0.88 IU/mL (0.30-0.70) Sodium Level 144 mmol/L (136-145) Potassium Level 4.0 mmol/L (3.5-5.1) Chloride Level 106 mmol/L (98-107) Carbon Dioxide Level 31 mmol/L (21-32) Anion Gap 7 (6-14) Blood Urea Nitrogen 31 mg/dL (7-20) Creatinine 0.8 mg/dL (0.6-1.0) Estimated GFR (Cockcroft-Gault) 86.6 Glucose Level 161 mg/dL (70-99) Calcium Level 8.8 mg/dL (8.5-10.1) Magnesium Level 2.3 mg/dL (1.8-2.4) Test 09/21/20 08:00 O2 Saturation 91 % (92-99) Arterial Blood pH 7.45 (7.35-7.45) Arterial Blood pCO2 at Patient Temp 48 mmHg (35-46) Arterial Blood pO2 at Patient Temp 60 mmHg (65-108) Arterial Blood HCO3 32 mmol/L (21-28) Arterial Blood Base Excess 7 mmol/L (-3-3) FiO2 100/vent Medications Active Scripts Medications Dose Route/Sig Max Daily Dose Days Date Category Metolazone 5 Mg Tablet 5 Mg PO QODAY 09/17/20 Reported Imuran (Azathioprine) 50 Mg Tablet 1 Tab PO DAILY 30 09/17/20 Reported Albuterol Sulfate Neb Soln (Albuterol Sulfate) 2.5 Mg/3 Ml Vial.neb 1 Vial NEB PRN Q4HRS 09/17/20 Reported Carvedilol (Carvedilol) 12.5 Mg Tablet 12.5 Mg PO BIDWMEALS 09/17/20 Reported Melatonin 5 Mg Capsule 3 Mg PO HS 09/17/20 Reported Duoneb 0.5-3(2.5) Mg/3 Ml (Albuterol/Ipratropium) 3 Ml Ampul.neb 3 Ml NEB QID 09/17/20 Reported Klor-Con 10 (Potassium Chloride) 10 Meq Tablet.er 1 Tab PO DAILY 30 09/17/20 Reported Eliquis (Apixaban) 5 Mg Tablet 5 Mg PO BID 09/17/20 Reported Torsemide 20 Mg Tablet 1 Tab PO BID 09/17/20 Reported Metformin Hcl 1,000 Mg Tablet 1,000 Mg PO BIDWMEALS 09/17/20 Reported Oxycodone HCl 5 Mg Tablet 10 Mg PO PRN Q6HRS PRN 09/17/20 Reported Ambien (Zolpidem Tartrate) 5 Mg Tablet 5 Mg PO PRN QHS PRN 09/17/20 Reported Levothyroxine Sodium 125 Mcg Tablet 1 Tab PO DAILY 09/17/20 Reported Gabapentin (Gabapentin) 300 Mg Capsule 300 Mg PO BID 09/17/20 Reported Lantus Solostar (Insulin Glargine,Hum.rec.anlog) 100 Unit/1 Ml Insuln.pen 20 Unit SQ QHS 09/17/20 Reported Insulin Lispro 100 Unit/1 Ml Vial 10 Unit SQ TID 09/17/20 Reported Comments CXR IMPRESSION: 1. Patchy bilateral opacities, improved in the left upper lung zone. 2. Small bilateral pleural effusions. 3. Stable life-support devices. Impression . IMPRESSION: 1. Acute hypoxic respiratory failure, multifactorial, requiring intubation. No change in oxygenation, suspect ALI/ARDS 2. Abnormal x-ray. 3. Acute on chronic kidney injury. 4. Chronic heart failure. 5. Possible bacterial pneumonia. 6. COVID-19-- negative 7. Metabolic toxic encephalopathy. 8. Elevated liver chemistries. 9. Moderate protein malnutrition, present upon admission. Plan . PLAN: Continue current vent support, assist-control Fi02 100% and PEEP 10 , no sig improvement. May need repeat CTA chest to better assess for etiology of hyoxia.repeat COVID Follow chest x-ray and ABG, make changes as needed, Continue empiric antibiotics, currently on vancomycin and Rocephin off heparin drip , on Eliquis for now Patient has a history of pulmonary embolism bilateral lower extremity Dopplers were negative Monitor renal function COVID-19 negative Follow cardiology recommendations DVT/GI prophylaxis Critical care time [id number] D/W RN and RT ANDRIY LEONE MD Sep 21, 2020 11:36
--- NOTE | 2020-09-21 12:10 | RAD ---
EXAM: Chest, single view. HISTORY: Respiratory failure. COMPARISON: 09/17/2020 FINDINGS: A frontal view of the chest obtained. There has been interval increase in right upper lobe interstitial infiltrate and there is stable multifocal infiltrate within the left upper and right mid dle and lower lobe. There has been interval decrease in suspected partial left lower lobe consolidati on. There are stable small pleural effusions. There is a stable prominent cardiac silhouette. There i s an endotracheal tube within the mid trachea. There is a nasogastric tube within the stomach. There is no pneumothorax. IMPRESSION: 1. Increased right upper lobe interstitial infiltrate and stable left upper lobe and right middle and lower lobe interstitial infiltrate. 2. Suspected slight decrease in partial left lower lobe consolidation. 3. Stable small pleural effusions. Electronically signed by: Donna Maldonado MD (09/21/2020 12:08 PM) [id number]
[2020-09-21] MEDS ORDERED: FUROSEMIDE 20 MG/2 ML VIAL. IVP ONE (12:45)
[2020-09-21] MEDS: methylPREDNISolone SOD SUCC PF 40 MG/ML VIAL. IV SCH ×2 (13:43→22:31)
[2020-09-21] MEDS: cefTRIAXone IV Push 1 GM VIAL. IVP SCH (17:13)
--- NOTE | 2020-09-21 18:54 | NUR ---
After turning to the left side, patient's SPO2 decreased to 80%. Patient was turned to the back, suctioned and lavaged, and then bagged using BVM which increased SPO2 to 93%. Shortly after, SPO2 decreased again to 78%. STAT CXR taken, notified Dr. Dukes of changes, orders received to increase PEEP to 11 and tidal volume to [address] order for an echo with a bubble study to be taken tomorrow.
[2020-09-21] MEDS: MIDAZOLAM HCL 100 MG in IV NORMAL SALINE 100ML 100 ML IV PRN (19:13)
--- NOTE | 2020-09-21 19:17 | RAD ---
XR CHEST 1V Clinical History: Reason: Hypoxia / Spl. Instructions: / History: Technique: AP view of the chest was obtained at 09/21/2020 6:30 PM. Comparison: 11:31 AM. Findings: The endotracheal tube and enteric tube are again seen. There is patchy perihilar linear opacities thr oughout the lungs. There is obscuration of the left hemidiaphragm and consolidation in the left lung base. The heart is mild to moderately enlarged. Impression: Small to moderate left effusion and bilateral infiltrates. This appears mildly worse. Electronically signed by: Danny Gentile III, MD (09/21/2020 7:14 PM) [facility]
[2020-09-21] MEDS: INSULIN GLARGINE SYRINGE. SQ SCH (21:04)
[2020-09-22] VITALS (24 sets, daily range): BP systolic 94–171; BP diastolic 55–91
[2020-09-22] MEDS: INSULIN LISPRO 300 UNITS/3 ML VIAL. SQ SCH ×4 (00:44→18:00)
[2020-09-22] MEDS: methylPREDNISolone SOD SUCC PF 40 MG/ML VIAL. IV SCH ×3 (06:21→20:42)
[2020-09-22] MEDS: MIDAZOLAM HCL 100 MG in IV NORMAL SALINE 100ML 100 ML IV PRN (06:25)
[2020-09-22] MEDS: ASPIRIN CHEWABLE 81 MG TABLET. PO SCH (08:24)
[2020-09-22] MEDS: CARVEDILOL 12.5 MG TABLET. PO SCH ×2 (08:24→16:07)
[2020-09-22] MEDS: FAMOTIDINE 20 MG/2 ML VIAL IVP SCH ×2 (08:24→20:41)
[2020-09-22] MEDS: APIXABAN 5 MG TABLET. PO SCH ×2 (08:25→20:39)
[2020-09-22] MEDS: ISOSORBIDE DINITRATE 10 MG TABLET. PO SCH ×3 (08:25→20:40)
[2020-09-22] MEDS: NYSTATIN TOPICAL POWDER 15GM BOTTLE. TP SCH ×2 (08:26→21:00)
[2020-09-22 08:40] LABS: HEMATOCRIT 39.3 % (36.0-47.0); RED BLOOD COUNT 5.38 x10^6/uL (3.50-5.40); RED CELL DISTRIBUTION WIDTH 18.2 % (11.5-14.5); WHITE BLOOD COUNT 13.1 x10^3/uL (4.0-11.0)
[2020-09-22 09:11] LABS: BASE EXCESS ABG 6 mmol/L (-3-3); HCO3 ABG 30 mmol/L (21-28); PCO2 ABG 41 mmHg (35-46); SAT O2 ABG 85 % (92-99)
[2020-09-22 09:18] LABS: ALBUMIN 2.5 g/dL (3.4-5.0); ALBUMIN/GLOBULIN RATIO 0.6 (1.0-1.7); CALCIUM 8.8 mg/dL (8.5-10.1); CREATININE 1.1 mg/dL (0.6-1.0); GFR 59.9; POTASSIUM 4.4 mmol/L (3.5-5.1); TOTAL BILIRUBIN 0.4 mg/dL (0.2-1.0); TOTAL PROTEIN 6.9 g/dL (6.4-8.2)
[2020-09-22] MEDS: ANTI-COAG MONITOR BY PHARMACY. MC PRN (09:19)
[2020-09-22] MEDS: VANCOMYCIN PER PHARMACY MC PRN (09:43)
[2020-09-22] MEDS: VANCOMYCIN 1.5 GM in IV NORMAL SALINE 500ML BAG 500 ML IV SCH (09:47)
--- NOTE | 2020-09-22 10:44 | PDOC ---
PULMONARY PROGRESS NOTES DATE: 09/22/20 TIME: 10:38 Subjective Patient remains on vent support, 100% and a PEEP of 11 progressive worsening hypoxia Vitals Vital Signs Date Time Temp Pulse Resp B/P (MAP) Pulse Ox O2 Delivery O2 Flow Rate FiO2 09/22/20 10:00 67 20 118/61 (80) 93 Ventilator 09/22/20 08:00 98.8 98.8 Comments exam done via tele medicine Intubated/sedated Extremities: No Edema Labs Laboratory Tests Test 09/20/20 11:18 09/20/20 17:15 09/20/20 23:59 09/21/20 06:05 Glucose (Fingerstick) 205 mg/dL (70-99) 297 mg/dL (70-99) 260 mg/dL (70-99) 167 mg/dL (70-99) Test 09/21/20 07:35 09/21/20 08:00 09/21/20 13:00 09/21/20 17:36 Heparin Anti-Xa Act, Unfractionated 0.88 IU/mL (0.30-0.70) Sodium Level 144 mmol/L (136-145) Potassium Level 4.0 mmol/L (3.5-5.1) Chloride Level 106 mmol/L (98-107) Carbon Dioxide Level 31 mmol/L (21-32) Anion Gap 7 (6-14) Blood Urea Nitrogen 31 mg/dL (7-20) Creatinine 0.8 mg/dL (0.6-1.0) Estimated GFR (Cockcroft-Gault) 86.6 Glucose Level 161 mg/dL (70-99) Calcium Level 8.8 mg/dL (8.5-10.1) Magnesium Level 2.3 mg/dL (1.8-2.4) C-Reactive Protein, Quantitative 54.3 mg/L (0-3.3) O2 Saturation 91 % (92-99) Arterial Blood pH 7.45 (7.35-7.45) Arterial Blood pCO2 at Patient Temp 48 mmHg (35-46) Arterial Blood pO2 at Patient Temp 60 mmHg (65-108) Arterial Blood HCO3 32 mmol/L (21-28) Arterial Blood Base Excess 7 mmol/L (-3-3) FiO2 100/vent Glucose (Fingerstick) 319 mg/dL (70-99) 311 mg/dL (70-99) Test 09/21/20 21:08 09/22/20 00:40 09/22/20 06:13 09/22/20 07:35 Glucose (Fingerstick) 305 mg/dL (70-99) 313 mg/dL (70-99) 276 mg/dL (70-99) White Blood Count 13.1 x10^3/uL (4.0-11.0) Red Blood Count 5.38 x10^6/uL (3.50-5.40) Hemoglobin 12.0 g/dL (12.0-15.5) Hematocrit 39.3 % (36.0-47.0) Mean Corpuscular Volume 73 fL (79-100) Mean Corpuscular Hemoglobin 22 pg (25-35) Mean Corpuscular Hemoglobin Concent 31 g/dL (31-37) Red Cell Distribution Width 18.2 % (11.5-14.5) Platelet Count 278 x10^3/uL (140-400) Sodium Level 141 mmol/L (136-145) Potassium Level 4.4 mmol/L (3.5-5.1) Chloride Level 101 mmol/L (98-107) Carbon Dioxide Level 30 mmol/L (21-32) Anion Gap 10 (6-14) Blood Urea Nitrogen 46 mg/dL (7-20) Creatinine 1.1 mg/dL (0.6-1.0) Estimated GFR (Cockcroft-Gault) 59.9 BUN/Creatinine Ratio 42 (6-20) Glucose Level 310 mg/dL (70-99) Calcium Level 8.8 mg/dL (8.5-10.1) Total Bilirubin 0.4 mg/dL (0.2-1.0) Aspartate Amino Transf (AST/SGOT) 25 U/L (15-37) Alanine Aminotransferase (ALT/SGPT) 49 U/L (14-59) Alkaline Phosphatase 119 U/L (46-116) Total Protein 6.9 g/dL (6.4-8.2) Albumin 2.5 g/dL (3.4-5.0) Albumin/Globulin Ratio 0.6 (1.0-1.7) Laboratory Tests Test 09/21/20 13:00 09/21/20 17:36 09/21/20 21:08 09/22/20 00:40 Glucose (Fingerstick) 319 mg/dL (70-99) 311 mg/dL (70-99) 305 mg/dL (70-99) 313 mg/dL (70-99) Test 09/22/20 06:13 09/22/20 07:35 Glucose (Fingerstick) 276 mg/dL (70-99) White Blood Count 13.1 x10^3/uL (4.0-11.0) Red Blood Count 5.38 x10^6/uL (3.50-5.40) Hemoglobin 12.0 g/dL (12.0-15.5) Hematocrit 39.3 % (36.0-47.0) Mean Corpuscular Volume 73 fL (79-100) Mean Corpuscular Hemoglobin 22 pg (25-35) Mean Corpuscular Hemoglobin Concent 31 g/dL (31-37) Red Cell Distribution Width 18.2 % (11.5-14.5) Platelet Count 278 x10^3/uL (140-400) Sodium Level 141 mmol/L (136-145) Potassium Level 4.4 mmol/L (3.5-5.1) Chloride Level 101 mmol/L (98-107) Carbon Dioxide Level 30 mmol/L (21-32) Anion Gap 10 (6-14) Blood Urea Nitrogen 46 mg/dL (7-20) Creatinine 1.1 mg/dL (0.6-1.0) Estimated GFR (Cockcroft-Gault) 59.9 BUN/Creatinine Ratio 42 (6-20) Glucose Level 310 mg/dL (70-99) Calcium Level 8.8 mg/dL (8.5-10.1) Total Bilirubin 0.4 mg/dL (0.2-1.0) Aspartate Amino Transf (AST/SGOT) 25 U/L (15-37) Alanine Aminotransferase (ALT/SGPT) 49 U/L (14-59) Alkaline Phosphatase 119 U/L (46-116) Total Protein 6.9 g/dL (6.4-8.2) Albumin 2.5 g/dL (3.4-5.0) Albumin/Globulin Ratio 0.6 (1.0-1.7) Medications Active Scripts Medications Dose Route/Sig Max Daily Dose Days Date Category Metolazone 5 Mg Tablet 5 Mg PO QODAY 09/17/20 Reported Imuran (Azathioprine) 50 Mg Tablet 1 Tab PO DAILY 30 09/17/20 Reported Albuterol Sulfate Neb Soln (Albuterol Sulfate) 2.5 Mg/3 Ml Vial.neb 1 Vial NEB PRN Q4HRS 09/17/20 Reported Carvedilol (Carvedilol) 12.5 Mg Tablet 12.5 Mg PO BIDWMEALS 09/17/20 Reported Melatonin 5 Mg Capsule 3 Mg PO HS 09/17/20 Reported Duoneb 0.5-3(2.5) Mg/3 Ml (Albuterol/Ipratropium) 3 Ml Ampul.neb 3 Ml NEB QID 09/17/20 Reported Klor-Con 10 (Potassium Chloride) 10 Meq Tablet.er 1 Tab PO DAILY 30 09/17/20 Reported Eliquis (Apixaban) 5 Mg Tablet 5 Mg PO BID 09/17/20 Reported Torsemide 20 Mg Tablet 1 Tab PO BID 09/17/20 Reported Metformin Hcl 1,000 Mg Tablet 1,000 Mg PO BIDWMEALS 09/17/20 Reported Oxycodone HCl 5 Mg Tablet 10 Mg PO PRN Q6HRS PRN 09/17/20 Reported Ambien (Zolpidem Tartrate) 5 Mg Tablet 5 Mg PO PRN QHS PRN 09/17/20 Reported Levothyroxine Sodium 125 Mcg Tablet 1 Tab PO DAILY 09/17/20 Reported Gabapentin (Gabapentin) 300 Mg Capsule 300 Mg PO BID 09/17/20 Reported Lantus Solostar (Insulin Glargine,Hum.rec.anlog) 100 Unit/1 Ml Insuln.pen 20 Unit SQ QHS 09/17/20 Reported Insulin Lispro 100 Unit/1 Ml Vial 10 Unit SQ TID 09/17/20 Reported Comments CXR IMPRESSION: 1. Patchy bilateral opacities, improved in the left upper lung zone. 2. Small bilateral pleural effusions. 3. Stable life-support devices. Impression . IMPRESSION: 1. Acute hypoxic respiratory failure, multifactorial, requiring intubation worsening oxygenation, suspect ALI/ARDS/ shunt physiology 2. Abnormal x-ray. 3. Acute on chronic kidney injury.. 4. Chronic heart failure. 5. Possible bacterial pneumonia. 6. COVID-19-- negative 7. Metabolic toxic encephalopathy. 8. Elevated liver chemistries. 9. Moderate protein malnutrition, present upon admission. Plan . PLAN: Continue current vent support, assist-control Fi02 100% and PEEP 11 , no sig improvement. too unstable for CTA chest to better assess for etiology of hyoxia, already on full dose AC.Pt has h/o Sarcoidosis, IV solumedrol started for?ILD flare up.repeated COVID, Echo with bubble study today to r/o shunt Follow chest x-ray and ABG, make changes as needed, Continue empiric antibiotics, currently on vancomycin and Rocephin off heparin drip , on Eliquis for now Patient has a history of pulmonary embolism bilateral lower extremity Dopplers were negative Monitor renal function COVID-19 negative Follow cardiology recommendations DVT/GI prophylaxis prognosis poor despite aggressive care. d/w family 09/21 D/W RN and RT ANDRIY LEONE MD Sep 22, 2020 10:44
--- NOTE | 2020-09-22 11:09 | PDOC ---
OSMAN CALERO STACKER TENDER 09/22/20 1109: CARDIO Progress Notes Date and Time Date of Service 09/22/2020 Time of Evaluation 0940 Subjective Subjective: Other (sedated) Vitals Vitals Vital Signs Date Time Temp Pulse Resp B/P (MAP) Pulse Ox O2 Delivery O2 Flow Rate FiO2 09/22/20 11:00 68 20 128/62 (84) 91 Ventilator 09/22/20 08:00 98.8 98.8 Weight Weight [ ] Input and Output Intake and Output Intake and Output 09/22/20 07:00 Intake Total 3307.1 ml Output Total 2350 ml Balance 957.1 ml Intake IV Total 1098.1 ml Tube Feeding 1709 ml Other 500 ml Output Urine Total 2350 ml Gastric Drainage Total 0 ml # Bowel Movements 2 Laboratory Labs Laboratory Tests Test 09/21/20 13:00 09/21/20 17:36 09/21/20 21:08 09/22/20 00:40 Glucose (Fingerstick) 319 mg/dL (70-99) 311 mg/dL (70-99) 305 mg/dL (70-99) 313 mg/dL (70-99) Test 09/22/20 06:13 09/22/20 07:35 Glucose (Fingerstick) 276 mg/dL (70-99) White Blood Count 13.1 x10^3/uL (4.0-11.0) Red Blood Count 5.38 x10^6/uL (3.50-5.40) Hemoglobin 12.0 g/dL (12.0-15.5) Hematocrit 39.3 % (36.0-47.0) Mean Corpuscular Volume 73 fL (79-100) Mean Corpuscular Hemoglobin 22 pg (25-35) Mean Corpuscular Hemoglobin Concent 31 g/dL (31-37) Red Cell Distribution Width 18.2 % (11.5-14.5) Platelet Count 278 x10^3/uL (140-400) Sodium Level 141 mmol/L (136-145) Potassium Level 4.4 mmol/L (3.5-5.1) Chloride Level 101 mmol/L (98-107) Carbon Dioxide Level 30 mmol/L (21-32) Anion Gap 10 (6-14) Blood Urea Nitrogen 46 mg/dL (7-20) Creatinine 1.1 mg/dL (0.6-1.0) Estimated GFR (Cockcroft-Gault) 59.9 BUN/Creatinine Ratio 42 (6-20) Glucose Level 310 mg/dL (70-99) Calcium Level 8.8 mg/dL (8.5-10.1) Total Bilirubin 0.4 mg/dL (0.2-1.0) Aspartate Amino Transf (AST/SGOT) 25 U/L (15-37) Alanine Aminotransferase (ALT/SGPT) 49 U/L (14-59) Alkaline Phosphatase 119 U/L (46-116) Total Protein 6.9 g/dL (6.4-8.2) Albumin 2.5 g/dL (3.4-5.0) Albumin/Globulin Ratio 0.6 (1.0-1.7) Physical Exam HEENT: Neck Supple W Full Motion Chest: Symmetric LUNGS: Other (intubated, vent) Heart: RRR (SR) Abdomen: Soft N/T Extremities: Other (1+ bilateral LE pitting edema) Neurology: other (sedated) Assessment Assessment 1. Acute respiratory failure: Multifactorial with AECOPD, pneumonia, CHF. Intubated/vent, covid neg 2. NSTEMI: peaked at 0.975, suspect demand mediated. EF and WM nml 3. AECOPD 4. Acute on chronic diastolic CHF 5. Metabolic encephalopathy 6. NICOLAS: azotemic probably from steroids 7. DM2 8. Hx of PE 9. HTN urgency: controlled. Negative for SHAUNA Recommendations 1. Continue eliquis. Continue current BP regimen via OG. Unable to increase coreg due to jordana issues 2. Secondary prevention measures 3. Lasix IV. has gained 5 Kg [address] Vent in [address], Optimization per pulmonary. Getting retested for covid-19 5. Supportive care Justicifation of Admission Dx: Justifications for Admission: Justification of Admission Dx: Yes VIKTOR BRUNNER MD 09/22/20 3116: CARDIO Progress Notes Assessment Assessment Patient seen and evaluated. I agree with our nurse practitioners assessment and plan. Acute respiratory failure: Multifactorial with AECOPD, pneumonia, CHF. Intu bated/vent, covid neg. Lasix IV. Followed by the pulmonary service. NSTEMI: peaked at 0.975, suspect demand mediated. EF and WM nml. Continuing medical treatment. AECOPD Acute on chronic diastolic CHF. Weight gain. IV Lasix. NICOLAS: Monitoring lab DM2 Hx of PE HTN urgency: controlled. Negative for SHAUNA OSMAN CALERO APRN Sep 22, 2020 11:09 VIKTOR BRUNNER MD Sep 22, 2020 18:37
--- NOTE | 2020-09-22 11:43 | PN ---
DATE: 09/22/2020 SUBJECTIVE: The patient continues to be sedated, intubated, mechanically ventilated. She continued to be on FiO2 of 100%, maintaining her oxygen saturation only at 91%. OBJECTIVE: GENERAL: When I examined her, she looked well and was clearly in no apparent respiratory distress. No pallor, jaundice, cyanosis or thyromegaly. No jugular venous distention. No lower limb edema. VITAL SIGNS: Her heart rate was 69, blood pressure was 153/78, her temperature was 98.6, respiratory rate 20, and oxygen saturation was 91% on FiO2 of 100%. HEAD, EYES, EARS, NOSE AND THROAT: Showed normocephalic, atraumatic. NECK: Supple. HEART: Normal first and second heart sounds. No gallop, rub or murmur. CHEST: Clear to auscultation. No crepitation or rhonchi. ABDOMEN: Distended, soft and nontender. NEUROLOGIC: She was heavily sedated. Her intake over the last 24 hours was 3700 and output was 2100. LABORATORY DATA: As of yesterday, her serum sodium was 144, potassium 4, chloride 106, bicarbonate 31, anion gap of 7, BUN 31 and creatinine 0.8. Estimated GFR was 86 mL per minute. Her glucose 161, calcium was 8.8 and magnesium 2.3. C-reactive protein was 54. ASSESSMENT: 1. Hkjpe-et-hulpjfn hypoxic hypercapnic respiratory failure that required intubation, mechanical ventilation. 2. Community-acquired pneumonia. 3. Acute on chronic diastolic congestive heart failure. 4. Acute on chronic kidney injury, improving. 5. Her COVID-19 test was negative; however, she was retested again. 6. Morbid obesity and obstructive sleep apnea. 7. Elevated troponin, felt to be due to demand ischemia. 8. The patient has multiple other medical problems including: A. Hypertension. B. Type 2 diabetes mellitus. C. Sarcoidosis. D. Chronic obstructive pulmonary disease. E. History of pulmonary embolism. PLAN: Obviously to continue mechanical ventilation. She continued to require 100% oxygen. She was on heparin. She is now on apixaban. Continue with IV antibiotic. Continue with DVT and GI prophylaxis. Continue to monitor her blood sugar and adjust insulin as needed. DARION MANCINI MD DR: NICHOLAS/emmett JOB#: [id number] / [id number]
[2020-09-22 12:31] LABS: PO2 ABG 48 mmHg (65-108)
[2020-09-22 12:32] LABS: FIO2 ABG 100% VENT
[2020-09-22] MEDS ORDERED: FUROSEMIDE 40 MG/4 ML VIAL. IVP ONE (12:45)
[2020-09-22] MEDS ORDERED: MIDAZOLAM 100mg/100ml NS BAG 100 ML IV PRN (14:00)
[2020-09-22] MEDS: MIDAZOLAM 100mg/100ml NS BAG 100 ML IV PRN (15:07)
--- NOTE | 2020-09-22 16:08 | NUR ---
SS following up with discharge planning. SS reviewed pt chart and discussed with pt RN. Pt is currently on the vent at 100%. COVID19 negative. Pt on IV Rocephin and IV Vancomycin. Pt being retested for COVID19. CT of the chest and bubble study ordered. Not stable. SS will continue to follow for discharge planning.
[2020-09-22] MEDS: cefTRIAXone IV Push 1 GM VIAL. IVP SCH (17:00)
[2020-09-22] MEDS: INSULIN GLARGINE SYRINGE. SQ SCH (21:27)
[2020-09-23] VITALS (24 sets, daily range): BP systolic 102–164; BP diastolic 58–93
[2020-09-23] MEDS: MIDAZOLAM 100mg/100ml NS BAG 100 ML IV PRN ×2 (00:48→13:04)
[2020-09-23] MEDS: INSULIN LISPRO 300 UNITS/3 ML VIAL. SQ SCH ×7 (00:59→18:15)
[2020-09-23] MEDS: methylPREDNISolone SOD SUCC PF 40 MG/ML VIAL. IV SCH ×3 (06:00→21:34)
[2020-09-23 07:32] LABS: BASE EXCESS ABG 4 mmol/L (-3-3); HCO3 ABG 28 mmol/L (21-28); PCO2 ABG 40 mmHg (35-46); SAT O2 ABG 82 % (92-99)
[2020-09-23 07:53] LABS: FIO2 ABG 100%; PO2 ABG 47 mmHg (65-108)
[2020-09-23] MEDS: ISOSORBIDE DINITRATE 10 MG TABLET. PO SCH ×3 (07:56→21:00)
[2020-09-23] MEDS: VANCOMYCIN 1.5 GM in IV NORMAL SALINE 500ML BAG 500 ML IV SCH (07:56)
[2020-09-23] MEDS: ASPIRIN CHEWABLE 81 MG TABLET. PO SCH (07:56)
[2020-09-23] MEDS: APIXABAN 5 MG TABLET. PO SCH ×2 (07:57→21:40)
[2020-09-23] MEDS: FAMOTIDINE 20 MG/2 ML VIAL IVP SCH ×2 (07:57→21:35)
[2020-09-23 08:18] LABS: HEMATOCRIT 40.3 % (36.0-47.0); HEMOGLOBIN 12.6 g/dL (12.0-15.5); RED BLOOD COUNT 5.5 x10^6/uL (3.50-5.40); RED CELL DISTRIBUTION WIDTH 18.1 % (11.5-14.5); WHITE BLOOD COUNT 13.8 x10^3/uL (4.0-11.0)
[2020-09-23] MEDS: CARVEDILOL 12.5 MG TABLET. PO SCH ×2 (08:23→16:41)
--- NOTE | 2020-09-23 08:34 | RAD ---
EXAM: Chest, single view. HISTORY: Respiratory failure. COMPARISON: 09/21/2020 FINDINGS: A frontal view of the chest is obtained. There is an endotracheal tube within the mid trach ea. There is a nasogastric tube within the stomach. There is stable multifocal lower lobe predominant infiltrate with small pleural effusions. There is stable cardiomegaly. There is no pneumothorax. IMPRESSION: 1. Stable multifocal infiltrate and small pleural effusions. 2. Stable support lines and tubes. Electronically signed by: Donna Maldonado MD (09/23/2020 8:26 AM) [id number]
[2020-09-23 08:39] LABS: ALBUMIN 2.5 g/dL (3.4-5.0); ALBUMIN/GLOBULIN RATIO 0.7 (1.0-1.7); CALCIUM 8.8 mg/dL (8.5-10.1); CREATININE 1.1 mg/dL (0.6-1.0); GFR 59.9; POTASSIUM 4.9 mmol/L (3.5-5.1); TOTAL BILIRUBIN 0.3 mg/dL (0.2-1.0); TOTAL PROTEIN 6.2 g/dL (6.4-8.2)
[2020-09-23] MEDS: NYSTATIN TOPICAL POWDER 15GM BOTTLE. TP SCH ×2 (09:00→21:00)
--- NOTE | 2020-09-23 09:06 | PN ---
DATE: 09/23/2020 SUBJECTIVE: The patient continues to be intubated, mechanically ventilated. Her blood gases showed marked hypoxemia with a pO2 of only 47 despite being on FiO2 of 100%. She is scheduled for an echocardiogram with bubble study as well as CT angio of the chest as her COVID-19 test came back negative. OBJECTIVE: GENERAL: When I examined her, there was no pallor, jaundice, cyanosis or thyromegaly. No jugular venous distention. No lower limb edema. VITAL SIGNS: Her heart rate was 66, blood pressure 146/75, her temperature was 98.4, respiratory rate was 20, and oxygen saturation was 95% on FiO2 of 100%. HEENT: Normocephalic, atraumatic. Has orotracheal and orogastric tube in place. NECK: Supple. HEART: Normal first and second heart sounds. No gallop or murmur. CHEST: Showed central trachea, equal bilateral chest expansion, air entry, could not appreciate any crepitation or rhonchi anteriorly. ABDOMEN: Distended, soft, nontender. NEUROLOGIC: She is heavily sedated. Her intake over the last 24 hours was 3300, output was 2350 as of yesterday morning. LABORATORY DATA: Her white cell count was 13,100, hemoglobin 12, hematocrit 39, MCV 73, platelet count 278,000. Her chemistry showed a serum sodium 141, potassium 4.4, chloride 101, bicarbonate 30, anion gap of 10, BUN 46, creatinine 1.1, estimated GFR was 60 mL per minute. Her blood sugar is suboptimally controlled. Her blood gases this morning showed a pH of 7.46, pCO2 of 40, pO2 of 47, bicarbonate 28, and oxygen saturation was only 82% on FiO2 of 100%. Her coronavirus PCR was not detectable. ASSESSMENT: 1. Fokyx-hv-jqnfchc hypoxic hypercapnic respiratory failure that required intubation, mechanical ventilation. 2. Community-acquired pneumonia. 3. Wdmfa-zv-dptgvcb diastolic congestive heart failure. 4. Dkkpg-mw-mglnkun kidney injury, improving. 5. COVID-19 test negative twice. 6. Morbid obesity and obstructive sleep apnea. 7. Elevated troponin, felt to be due to demand ischemia. 8. The patient has multiple other medical problems including: A. Hypertension. B. Type 2 diabetes mellitus. C. Sarcoidosis. D. Chronic obstructive pulmonary disease. E. History of pulmonary embolism. PLAN: Given the continued profound hypoxemia despite being on FiO2 of 100%, the patient is scheduled for echocardiogram with bubble study as well as CT angio of the chest. Meanwhile, continue with apixaban. Continue with IV antibiotic. Continue with DVT and GI prophylaxis. Her blood sugar is very poorly controlled. I will adjust her insulin. DARION MANCINI MD DR: NICHOLAS/emmett JOB#: [id number] / [id number]
--- NOTE | 2020-09-23 09:24 | PDOC ---
PULMONARY PROGRESS NOTES DATE: 09/23/20 TIME: 09:19 Subjective Patient remains on vent support, 100% and a PEEP of 11 progressive worsening hypoxia Vitals Vital Signs Date Time Temp Pulse Resp B/P (MAP) Pulse Ox O2 Delivery O2 Flow Rate FiO2 09/23/20 09:00 64 164/93 09/23/20 08:49 92 09/23/20 07:18 Ventilator 09/23/20 06:00 20 09/23/20 00:00 98.4 98.4 Comments Intubated/sedated Extremities: No Edema Labs Laboratory Tests Test 09/21/20 13:00 09/21/20 13:10 09/21/20 17:36 09/21/20 21:08 Glucose (Fingerstick) 319 mg/dL (70-99) 311 mg/dL (70-99) 305 mg/dL (70-99) Coronavirus (PCR) Not detected (Not Detected) Test 09/22/20 00:40 09/22/20 06:13 09/22/20 07:35 09/22/20 08:00 Glucose (Fingerstick) 313 mg/dL (70-99) 276 mg/dL (70-99) White Blood Count 13.1 x10^3/uL (4.0-11.0) Red Blood Count 5.38 x10^6/uL (3.50-5.40) Hemoglobin 12.0 g/dL (12.0-15.5) Hematocrit 39.3 % (36.0-47.0) Mean Corpuscular Volume 73 fL (79-100) Mean Corpuscular Hemoglobin 22 pg (25-35) Mean Corpuscular Hemoglobin Concent 31 g/dL (31-37) Red Cell Distribution Width 18.2 % (11.5-14.5) Platelet Count 278 x10^3/uL (140-400) Sodium Level 141 mmol/L (136-145) Potassium Level 4.4 mmol/L (3.5-5.1) Chloride Level 101 mmol/L (98-107) Carbon Dioxide Level 30 mmol/L (21-32) Anion Gap 10 (6-14) Blood Urea Nitrogen 46 mg/dL (7-20) Creatinine 1.1 mg/dL (0.6-1.0) Estimated GFR (Cockcroft-Gault) 59.9 BUN/Creatinine Ratio 42 (6-20) Glucose Level 310 mg/dL (70-99) Calcium Level 8.8 mg/dL (8.5-10.1) Total Bilirubin 0.4 mg/dL (0.2-1.0) Aspartate Amino Transf (AST/SGOT) 25 U/L (15-37) Alanine Aminotransferase (ALT/SGPT) 49 U/L (14-59) Alkaline Phosphatase 119 U/L (46-116) Total Protein 6.9 g/dL (6.4-8.2) Albumin 2.5 g/dL (3.4-5.0) Albumin/Globulin Ratio 0.6 (1.0-1.7) O2 Saturation 85 % (92-99) Arterial Blood pH 7.48 (7.35-7.45) Arterial Blood pCO2 at Patient Temp 41 mmHg (35-46) Arterial Blood pO2 at Patient Temp 48 mmHg (65-108) Arterial Blood HCO3 30 mmol/L (21-28) Arterial Blood Base Excess 6 mmol/L (-3-3) FiO2 100% vent Test 09/22/20 17:07 09/22/20 21:23 09/23/20 00:55 09/23/20 05:49 Glucose (Fingerstick) 296 mg/dL (70-99) 330 mg/dL (70-99) 313 mg/dL (70-99) 337 mg/dL (70-99) Test 09/23/20 07:30 09/23/20 07:40 O2 Saturation 82 % (92-99) Arterial Blood pH 7.46 (7.35-7.45) Arterial Blood pCO2 at Patient Temp 40 mmHg (35-46) Arterial Blood pO2 at Patient Temp 47 mmHg (65-108) Arterial Blood HCO3 28 mmol/L (21-28) Arterial Blood Base Excess 4 mmol/L (-3-3) FiO2 100% White Blood Count 13.8 x10^3/uL (4.0-11.0) Red Blood Count 5.50 x10^6/uL (3.50-5.40) Hemoglobin 12.6 g/dL (12.0-15.5) Hematocrit 40.3 % (36.0-47.0) Mean Corpuscular Volume 73 fL (79-100) Mean Corpuscular Hemoglobin 23 pg (25-35) Mean Corpuscular Hemoglobin Concent 31 g/dL (31-37) Red Cell Distribution Width 18.1 % (11.5-14.5) Platelet Count 307 x10^3/uL (140-400) Sodium Level 142 mmol/L (136-145) Potassium Level 4.9 mmol/L (3.5-5.1) Chloride Level 103 mmol/L (98-107) Carbon Dioxide Level 28 mmol/L (21-32) Anion Gap 11 (6-14) Blood Urea Nitrogen 58 mg/dL (7-20) Creatinine 1.1 mg/dL (0.6-1.0) Estimated GFR (Cockcroft-Gault) 59.9 BUN/Creatinine Ratio 53 (6-20) Glucose Level 333 mg/dL (70-99) Calcium Level 8.8 mg/dL (8.5-10.1) Total Bilirubin 0.3 mg/dL (0.2-1.0) Aspartate Amino Transf (AST/SGOT) 18 U/L (15-37) Alanine Aminotransferase (ALT/SGPT) 45 U/L (14-59) Alkaline Phosphatase 108 U/L (46-116) Total Protein 6.2 g/dL (6.4-8.2) Albumin 2.5 g/dL (3.4-5.0) Albumin/Globulin Ratio 0.7 (1.0-1.7) Laboratory Tests Test 09/22/20 17:07 09/22/20 21:23 09/23/20 00:55 09/23/20 05:49 Glucose (Fingerstick) 296 mg/dL (70-99) 330 mg/dL (70-99) 313 mg/dL (70-99) 337 mg/dL (70-99) Test 09/23/20 07:30 09/23/20 07:40 O2 Saturation 82 % (92-99) Arterial Blood pH 7.46 (7.35-7.45) Arterial Blood pCO2 at Patient Temp 40 mmHg (35-46) Arterial Blood pO2 at Patient Temp 47 mmHg (65-108) Arterial Blood HCO3 28 mmol/L (21-28) Arterial Blood Base Excess 4 mmol/L (-3-3) FiO2 100% White Blood Count 13.8 x10^3/uL (4.0-11.0) Red Blood Count 5.50 x10^6/uL (3.50-5.40) Hemoglobin 12.6 g/dL (12.0-15.5) Hematocrit 40.3 % (36.0-47.0) Mean Corpuscular Volume 73 fL (79-100) Mean Corpuscular Hemoglobin 23 pg (25-35) Mean Corpuscular Hemoglobin Concent 31 g/dL (31-37) Red Cell Distribution Width 18.1 % (11.5-14.5) Platelet Count 307 x10^3/uL (140-400) Sodium Level 142 mmol/L (136-145) Potassium Level 4.9 mmol/L (3.5-5.1) Chloride Level 103 mmol/L (98-107) Carbon Dioxide Level 28 mmol/L (21-32) Anion Gap 11 (6-14) Blood Urea Nitrogen 58 mg/dL (7-20) Creatinine 1.1 mg/dL (0.6-1.0) Estimated GFR (Cockcroft-Gault) 59.9 BUN/Creatinine Ratio 53 (6-20) Glucose Level 333 mg/dL (70-99) Calcium Level 8.8 mg/dL (8.5-10.1) Total Bilirubin 0.3 mg/dL (0.2-1.0) Aspartate Amino Transf (AST/SGOT) 18 U/L (15-37) Alanine Aminotransferase (ALT/SGPT) 45 U/L (14-59) Alkaline Phosphatase 108 U/L (46-116) Total Protein 6.2 g/dL (6.4-8.2) Albumin 2.5 g/dL (3.4-5.0) Albumin/Globulin Ratio 0.7 (1.0-1.7) Medications Active Scripts Medications Dose Route/Sig Max Daily Dose Days Date Category Metolazone 5 Mg Tablet 5 Mg PO QODAY 09/17/20 Reported Imuran (Azathioprine) 50 Mg Tablet 1 Tab PO DAILY 30 09/17/20 Reported Albuterol Sulfate Neb Soln (Albuterol Sulfate) 2.5 Mg/3 Ml Vial.neb 1 Vial NEB PRN Q4HRS 09/17/20 Reported Carvedilol (Carvedilol) 12.5 Mg Tablet 12.5 Mg PO BIDWMEALS 09/17/20 Reported Melatonin 5 Mg Capsule 3 Mg PO HS 1/2/21 Reported Duoneb 0.5-3(2.5) Mg/3 Ml (Albuterol/Ipratropium) 3 Ml Ampul.neb 3 Ml NEB QID 09/17/20 Reported Klor-Con 10 (Potassium Chloride) 10 Meq Tablet.er 1 Tab PO DAILY 30 09/17/20 Reported Eliquis (Apixaban) 5 Mg Tablet 5 Mg PO BID 09/17/20 Reported Torsemide 20 Mg Tablet 1 Tab PO BID 09/17/20 Reported Metformin Hcl 1,000 Mg Tablet 1,000 Mg PO BIDWMEALS 09/17/20 Reported Oxycodone HCl 5 Mg Tablet 10 Mg PO PRN Q6HRS PRN 09/17/20 Reported Ambien (Zolpidem Tartrate) 5 Mg Tablet 5 Mg PO PRN QHS PRN 09/17/20 Reported Levothyroxine Sodium 125 Mcg Tablet 1 Tab PO DAILY 09/17/20 Reported Gabapentin (Gabapentin) 300 Mg Capsule 300 Mg PO BID 09/17/20 Reported Lantus Solostar (Insulin Glargine,Hum.rec.anlog) 100 Unit/1 Ml Insuln.pen 20 Unit SQ QHS 09/17/20 Reported Insulin Lispro 100 Unit/1 Ml Vial 10 Unit SQ TID 09/17/20 Reported Comments CXR IMPRESSION: 1. Patchy bilateral opacities, improved in the left upper lung zone. 2. Small bilateral pleural effusions. 3. Stable life-support devices. Impression . IMPRESSION: 1. Acute hypoxic respiratory failure, multifactorial, requiring intubation worsening oxygenation, suspect ALI/ARDS/ shunt physiology/ She has been on Echmo in past / will need records from outside hospital 2. Abnormal x-ray. 3. Acute on chronic kidney injury.. 4. Chronic heart failure. 5. Possible bacterial pneumonia. 6. COVID-19-- negative 7. Metabolic toxic encephalopathy. 8. Elevated liver chemistries. 9. Moderate protein malnutrition, present upon admission. Plan . PLAN: Continue current vent support, assist-control Fi02 100% and increase PEEP to 12 , no sig improvement. too unstable for CTA chest to better assess for etiology of hyoxia, already on full dose AC.Pt has h/o Sarcoidosis, IV solumedrol started for?ILD flare up.repeated COVID, Echo with bubble study today to r/o shunt pending. Patient has been on ECHMO. will get records of etiology of her hypoxia Follow chest x-ray and ABG, make changes as needed, Continue empiric antibiotics, currently on vancomycin and Rocephin off heparin drip , on Eliquis for now Patient has a history of pulmonary embolism bilateral lower extremity Dopplers were negative Monitor renal function COVID-19 negative Follow cardiology recommendations DVT/GI prophylaxis prognosis poor despite aggressive care. d/w family 09/21 cct 30 min D/W RN and RT ANDRIY LEONE MD Sep 23, 2020 09:24
--- NOTE | 2020-09-23 10:18 | PDOC ---
OSMAN CALERO [employer] 09/23/20 1017: CARDIO Progress Notes Date and Time Date of Service 09/23/2020 Time of Evaluation 0910 Subjective Subjective: Other (sedated) Vitals Vitals Vital Signs Date Time Temp Pulse Resp B/P (MAP) Pulse Ox O2 Delivery O2 Flow Rate FiO2 09/23/20 10:00 70 20 141/71 (94) 94 Ventilator 09/23/20 08:00 98.3 98.3 Weight Weight [ ] Input and Output Intake and Output Intake and Output 09/23/20 07:00 Intake Total 2173 ml Output Total 1970 ml Balance 203 ml Intake IV Total 687 ml Tube Feeding 825 ml Blood Product IV Normal Saline Flush 251 ml Other 410 ml Output Urine Total 1970 ml Gastric Drainage Total 0 ml Laboratory Labs Laboratory Tests Test 09/22/20 17:07 09/22/20 21:23 09/23/20 00:55 09/23/20 05:49 Glucose (Fingerstick) 296 mg/dL (70-99) 330 mg/dL (70-99) 313 mg/dL (70-99) 337 mg/dL (70-99) Test 09/23/20 07:30 09/23/20 07:40 O2 Saturation 82 % (92-99) Arterial Blood pH 7.46 (7.35-7.45) Arterial Blood pCO2 at Patient Temp 40 mmHg (35-46) Arterial Blood pO2 at Patient Temp 47 mmHg (65-108) Arterial Blood HCO3 28 mmol/L (21-28) Arterial Blood Base Excess 4 mmol/L (-3-3) FiO2 100% White Blood Count 13.8 x10^3/uL (4.0-11.0) Red Blood Count 5.50 x10^6/uL (3.50-5.40) Hemoglobin 12.6 g/dL (12.0-15.5) Hematocrit 40.3 % (36.0-47.0) Mean Corpuscular Volume 73 fL (79-100) Mean Corpuscular Hemoglobin 23 pg (25-35) Mean Corpuscular Hemoglobin Concent 31 g/dL (31-37) Red Cell Distribution Width 18.1 % (11.5-14.5) Platelet Count 307 x10^3/uL (140-400) Sodium Level 142 mmol/L (136-145) Potassium Level 4.9 mmol/L (3.5-5.1) Chloride Level 103 mmol/L (98-107) Carbon Dioxide Level 28 mmol/L (21-32) Anion Gap 11 (6-14) Blood Urea Nitrogen 58 mg/dL (7-20) Creatinine 1.1 mg/dL (0.6-1.0) Estimated GFR (Cockcroft-Gault) 59.9 BUN/Creatinine Ratio 53 (6-20) Glucose Level 333 mg/dL (70-99) Calcium Level 8.8 mg/dL (8.5-10.1) Total Bilirubin 0.3 mg/dL (0.2-1.0) Aspartate Amino Transf (AST/SGOT) 18 U/L (15-37) Alanine Aminotransferase (ALT/SGPT) 45 U/L (14-59) Alkaline Phosphatase 108 U/L (46-116) Total Protein 6.2 g/dL (6.4-8.2) Albumin 2.5 g/dL (3.4-5.0) Albumin/Globulin Ratio 0.7 (1.0-1.7) Physical Exam HEENT: Neck Supple W Full Motion Chest: Symmetric LUNGS: Other (intubated, vent) Heart: RRR (SR with no significant ectopies) Abdomen: Soft N/T Extremities: Other (1+ bilateral LE pitting edema) Neurology: other (sedated) Assessment Assessment 1. Acute respiratory failure: Multifactorial with AECOPD, pneumonia, CHF. Intubated/vent, covid neg x2 2. NSTEMI: peaked at 0.975, suspect demand mediated. EF and WM nml 3. AECOPD 4. Acute on chronic diastolic CHF 5. Metabolic encephalopathy 6. NICOLAS: azotemic probably from steroids 7. DM2 8. Hx of PE 9. HTN urgency: controlled. Negative for SHAUNA Recommendations 1. Continue eliquis. Continue current BP regimen via OG. Unable to increase coreg due to jordana issues. 2. Secondary prevention measures 3. Lasix prn. Remains hypoxic, poor progress. Will do limited TTE with bubble study and note any R>L shunting 4. Vent in place, Optimization per pulmonary. 5. Supportive care Justicifation of Admission Dx: Justifications for Admission: Justification of Admission Dx: Yes VIKTOR BRUNNER MD 09/23/20 1523: CARDIO Progress Notes Assessment Assessment Patient seen and evaluated. I agree with our nurse practitioners assessment and plan. Acute respiratory failure: Multifactorial with AECOPD, pneumonia, CHF. Intubated/vent, covid neg x2. Echo today shows a negative bubble study. Lasix as needed. Followed by pulmonary. NSTEMI: peaked at 0.975, suspect demand mediated. EF and WM nml. Continuing medical treatment. Acute on chronic diastolic CHF. Lasix as needed. Monitoring lab. Metabolic encephalopathy NICOLAS DM2 Hx of PE HTN urgency: controlled. Negative for SHAUNA OSMAN CALERO APRN Sep 23, 2020 10:17 VIKTOR BRUNNER MD Sep 23, 2020 15:23
[2020-09-23] MEDS ORDERED: FUROSEMIDE 40 MG/4 ML VIAL. IVP ONE (13:00)
--- NOTE | 2020-09-23 13:59 | CARD ---
MR#: [id number] Date of Study: 09/23/2020 Ordering Physician: ANDRIY LEONE, Referring Physician: ANDRIY LEONE Tech: Kena Alberts [facility] APPROVED REPORT EXAM: Two-dimensional and M-mode echocardiogram with Doppler and color Doppler. Other Information Quality : Average Echo Enhancing Agent Indication: Rule Out Septal Defect Agent/Amount Used: Agitated Saline 7mL ATRIA The interatrial septum is intact with no evidence for an atrial septal defect or patent foramen ovale as noted on 2-D or Doppler imaging. Negative bubble study. <Conclusion> Limited echo with a bubble study only. The interatrial septum is intact with no evidence for an atrial septal defect or patent foramen ovale as noted on 2-D or Doppler imaging. Negative bubble study. Signed by : Reagan Toth MD Electronically Approved : 09/23/2020 13:58:34
--- NOTE | 2020-09-23 15:51 | NUR ---
SS following up with discharge planning. SS reviewed pt chart and discussed with pt RN. Pt is currently on the vent at 100%. Pt on IV Zosyn. COVID19 negative. Dr. Petersen discussed medical status with family. Full Code. Not stable. SS will continue to follow for discharge planning.
[2020-09-23] MEDS: PIPERACILLIN/TAZOBACTAM 3.375 GM in IV NORMAL SALINE 50ML 50 ML IV SCH (16:40)
[2020-09-23] MEDS ORDERED: INSULIN GLARGINE SYRINGE. SQ SCH (21:00)
[2020-09-24] VITALS (24 sets, daily range): BP systolic 99–172; BP diastolic 53–87
[2020-09-24] MEDS: PIPERACILLIN/TAZOBACTAM 3.375 GM in IV NORMAL SALINE 50ML 50 ML IV SCH ×4 (00:05→17:21)
[2020-09-24] MEDS: INSULIN LISPRO 300 UNITS/3 ML VIAL. SQ SCH ×9 (00:06→18:18)
[2020-09-24] MEDS: MIDAZOLAM 100mg/100ml NS BAG 100 ML IV PRN ×3 (00:37→22:18)
[2020-09-24] MEDS: methylPREDNISolone SOD SUCC PF 40 MG/ML VIAL. IV SCH ×3 (06:02→21:12)
[2020-09-24 07:35] LABS: BASE EXCESS ABG 3 mmol/L (-3-3); HCO3 ABG 28 mmol/L (21-28); PCO2 ABG 44 mmHg (35-46); SAT O2 ABG 83 % (92-99)
[2020-09-24 07:36] LABS: PO2 ABG 48 mmHg (65-108)
[2020-09-24] MEDS: APIXABAN 5 MG TABLET. PO SCH ×2 (08:52→21:11)
[2020-09-24] MEDS: CARVEDILOL 12.5 MG TABLET. PO SCH ×2 (08:53→17:04)
[2020-09-24] MEDS: ISOSORBIDE DINITRATE 10 MG TABLET. PO SCH ×3 (08:57→21:11)
--- NOTE | 2020-09-24 09:28 | PDOC ---
PULMONARY PROGRESS NOTES DATE: 09/24/20 TIME: 09:23 Subjective Patient remains on vent support, 100% and a PEEP of 12 progressive worsening hypoxia despite increasing PEEP Vitals Vital Signs Date Time Temp Pulse Resp B/P (MAP) Pulse Ox O2 Delivery O2 Flow Rate FiO2 09/24/20 09:07 18 93 Ventilator 09/24/20 08:57 62 137/73 09/24/20 07:56 97.9 97.9 Comments Intubated/sedated Lungs: Clear Cardiovascular: S1 Abdomen: Soft Extremities: No Edema Skin: Warm Labs Laboratory Tests Test 09/22/20 13:06 09/22/20 17:07 09/22/20 21:23 09/23/20 00:55 Glucose (Fingerstick) 362 mg/dL (70-99) 296 mg/dL (70-99) 330 mg/dL (70-99) 313 mg/dL (70-99) Test 09/23/20 05:49 09/23/20 07:30 09/23/20 07:40 09/23/20 12:54 Glucose (Fingerstick) 337 mg/dL (70-99) 343 mg/dL (70-99) O2 Saturation 82 % (92-99) Arterial Blood pH 7.46 (7.35-7.45) Arterial Blood pCO2 at Patient Temp 40 mmHg (35-46) Arterial Blood pO2 at Patient Temp 47 mmHg (65-108) Arterial Blood HCO3 28 mmol/L (21-28) Arterial Blood Base Excess 4 mmol/L (-3-3) FiO2 100% White Blood Count 13.8 x10^3/uL (4.0-11.0) Red Blood Count 5.50 x10^6/uL (3.50-5.40) Hemoglobin 12.6 g/dL (12.0-15.5) Hematocrit 40.3 % (36.0-47.0) Mean Corpuscular Volume 73 fL (79-100) Mean Corpuscular Hemoglobin 23 pg (25-35) Mean Corpuscular Hemoglobin Concent 31 g/dL (31-37) Red Cell Distribution Width 18.1 % (11.5-14.5) Platelet Count 307 x10^3/uL (140-400) Sodium Level 142 mmol/L (136-145) Potassium Level 4.9 mmol/L (3.5-5.1) Chloride Level 103 mmol/L (98-107) Carbon Dioxide Level 28 mmol/L (21-32) Anion Gap 11 (6-14) Blood Urea Nitrogen 58 mg/dL (7-20) Creatinine 1.1 mg/dL (0.6-1.0) Estimated GFR (Cockcroft-Gault) 59.9 BUN/Creatinine Ratio 53 (6-20) Glucose Level 333 mg/dL (70-99) Calcium Level 8.8 mg/dL (8.5-10.1) Total Bilirubin 0.3 mg/dL (0.2-1.0) Aspartate Amino Transf (AST/SGOT) 18 U/L (15-37) Alanine Aminotransferase (ALT/SGPT) 45 U/L (14-59) Alkaline Phosphatase 108 U/L (46-116) Total Protein 6.2 g/dL (6.4-8.2) Albumin 2.5 g/dL (3.4-5.0) Albumin/Globulin Ratio 0.7 (1.0-1.7) Test 09/23/20 18:13 09/23/20 21:31 09/23/20 23:47 09/24/20 07:32 Glucose (Fingerstick) 261 mg/dL (70-99) 258 mg/dL (70-99) 254 mg/dL (70-99) O2 Saturation 83 % (92-99) Arterial Blood pH 7.43 (7.35-7.45) Arterial Blood pCO2 at Patient Temp 44 mmHg (35-46) Arterial Blood pO2 at Patient Temp 48 mmHg (65-108) Arterial Blood HCO3 28 mmol/L (21-28) Arterial Blood Base Excess 3 mmol/L (-3-3) FiO2 100 vent Test 09/24/20 07:35 Glucose (Fingerstick) 232 mg/dL (70-99) Laboratory Tests Test 09/23/20 12:54 09/23/20 18:13 09/23/20 21:31 09/23/20 23:47 Glucose (Fingerstick) 343 mg/dL (70-99) 261 mg/dL (70-99) 258 mg/dL (70-99) 254 mg/dL (70-99) Test 09/24/20 07:32 09/24/20 07:35 O2 Saturation 83 % (92-99) Arterial Blood pH 7.43 (7.35-7.45) Arterial Blood pCO2 at Patient Temp 44 mmHg (35-46) Arterial Blood pO2 at Patient Temp 48 mmHg (65-108) Arterial Blood HCO3 28 mmol/L (21-28) Arterial Blood Base Excess 3 mmol/L (-3-3) FiO2 100 vent Glucose (Fingerstick) 232 mg/dL (70-99) Medications Active Scripts Medications Dose Route/Sig Max Daily Dose Days Date Category Metolazone 5 Mg Tablet 5 Mg PO QODAY 09/17/20 Reported Imuran (Azathioprine) 50 Mg Tablet 1 Tab PO DAILY 30 09/17/20 Reported Albuterol Sulfate Neb Soln (Albuterol Sulfate) 2.5 Mg/3 Ml Vial.neb 1 Vial NEB PRN Q4HRS 09/17/20 Reported Carvedilol (Carvedilol) 12.5 Mg Tablet 12.5 Mg PO BIDWMEALS 09/17/20 Reported Melatonin 5 Mg Capsule 3 Mg PO HS 09/17/20 Reported Duoneb 0.5-3(2.5) Mg/3 Ml (Albuterol/Ipratropium) 3 Ml Ampul.neb 3 Ml NEB QID 09/17/20 Reported Klor-Con 10 (Potassium Chloride) 10 Meq Tablet.er 1 Tab PO DAILY 30 09/17/20 Reported Eliquis (Apixaban) 5 Mg Tablet 5 Mg PO BID 09/17/20 Reported Torsemide 20 Mg Tablet 1 Tab PO BID 09/17/20 Reported Metformin Hcl 1,000 Mg Tablet 1,000 Mg PO BIDWMEALS 09/17/20 Reported Oxycodone HCl 5 Mg Tablet 10 Mg PO PRN Q6HRS PRN 09/17/20 Reported Ambien (Zolpidem Tartrate) 5 Mg Tablet 5 Mg PO PRN QHS PRN 09/17/20 Reported Levothyroxine Sodium 125 Mcg Tablet 1 Tab PO DAILY 09/17/20 Reported Gabapentin (Gabapentin) 300 Mg Capsule 300 Mg PO BID 09/17/20 Reported Lantus Solostar (Insulin Glargine,Hum.rec.anlog) 100 Unit/1 Ml Insuln.pen 20 Unit SQ QHS 09/17/20 Reported Insulin Lispro 100 Unit/1 Ml Vial 10 Unit SQ TID 09/17/20 Reported Comments CXR IMPRESSION: 1. Patchy bilateral opacities, improved in the left upper lung zone. 2. Small bilateral pleural effusions. 3. Stable life-support devices. Impression . IMPRESSION: 1. Acute hypoxic respiratory failure, multifactorial, requiring intubation worsening oxygenation, suspect ALI/ARDS/ shunt physiology/ She was at one point about to be put on ECHMO in past / review of some records suggest that she was on home O2 at 12 litres at rest/ 15 litres with exertion.Severe hypoxia was attributed to sarcoidosis/ no sig pulmonary htn on previous RHC 2. Abnormal x-ray. 3. Acute on chronic kidney injury.. 4. Chronic rt heart failure. 5. ? bacterial pneumonia. 6. COVID-19-- negative 7. Metabolic toxic encephalopathy. 8. Elevated liver chemistries. 9. Moderate protein malnutrition, present upon admission. Plan . PLAN: Continue current vent support, assist-control Fi02 100% and increase PEEP to 13 , no sig improvement. too unstable for CTA chest , already on full dose Anti- coagulation. .Pt has h/o Sarcoidosis, IV solumedrol started for?ILD flare up.repeated COVID neg, Echo with bubble study today with no shunt Follow chest x-ray and ABG, make changes as needed, Continue empiric antibiotics, off vancomycin , added Zosyn 09/23 off heparin drip , on Eliquis for now Patient has a history of pulmonary embolism bilateral lower extremity Dopplers were negative Monitor renal function COVID-19 negative Follow cardiology recommendations DVT/GI prophylaxis prognosis poor despite aggressive care. d/w family 09/23 and cardiology cct 35 min D/W RN and RT ANDRIY LEONE MD Sep 24, 2020 09:28
[2020-09-24] MEDS: INSULIN GLARGINE SYRINGE. SQ SCH ×2 (09:34→21:18)
[2020-09-24] MEDS: FAMOTIDINE 20 MG/2 ML VIAL IVP SCH ×2 (09:44→21:10)
[2020-09-24] MEDS: NYSTATIN TOPICAL POWDER 15GM BOTTLE. TP SCH ×2 (09:44→21:00)
--- NOTE | 2020-09-24 09:46 | PN ---
DATE: 09/24/2020 SUBJECTIVE: The patient continues to be intubated, mechanically ventilated, continued to be hypoxic despite being on FiO2 of 100% of oxygen. She had had a transthoracic echocardiogram with bubble study that showed that the interatrial septum is intact with no evidence of an atrial septal defect or patent foramen ovale. She was supposed to have a CT angio of the chest. For some reason, it was not done. PHYSICAL EXAMINATION: GENERAL: When I examined her today, she looked well and was clearly in no apparent respiratory distress. No pallor, jaundice, cyanosis or thyromegaly. No jugular venous distention. No lower limb edema. VITAL SIGNS: Her heart rate was 57, blood pressure was 133/73, temperature was 97.9, respiratory rate was 18 and oxygen saturation was 93% on FiO2 of 100%. HEAD, EYES, EARS, NOSE, AND THROAT: Showed normocephalic, atraumatic. NECK: Supple. HEART: Normal first and second heart sounds. No gallop or murmur. CHEST: Clear to auscultation. No crepitation or rhonchi. ABDOMEN: Distended, soft, nontender. NEUROLOGIC: She is heavily sedated. Her intake over the last 24 hours was 2173, output was 1970. LABORATORY DATA: Her white cell count as of yesterday was 13,800; hemoglobin 12.6; hematocrit 40; MCV 73 and platelet count 307,000. Her chemistry showed a serum sodium 142, potassium 4.9, chloride 103, bicarbonate 28, anion gap of 11, BUN of 58, creatinine 1.1, estimated GFR was 60 mL per minute. Her glucose was 333, calcium was 8.8. Total bilirubin, AST, ALT, alkaline phosphatase were normal. Total protein 6.2, albumin was 2.5. Her blood gases as of this morning showed a pH of 7.43, pCO2 of 44, pO2 of 48, bicarbonate 28, and oxygen saturation was 83% on FiO2 of 100%. ASSESSMENT: 1. Acute on chronic hypoxic hypercapnic respiratory failure, has required intubation and mechanical ventilation. The patient continued to be hypoxic despite an FiO2 of 100%. Her echocardiogram showed no evidence of any atrial septal defect or resistant foramen ovale. 2. Community-acquired pneumonia. 3. Acute on chronic diastolic congestive heart failure. 4. Acute on chronic kidney injury that is improving. 5. COVID-19 test negative twice. 6. Morbid obesity and obstructive sleep apnea. 7. Elevated troponin, felt to be demand ischemia. 8. The patient has multiple other medical problems, including: A. Hypertension. B. Type 2 diabetes mellitus. C. Sarcoidosis. D. Chronic obstructive pulmonary disease. E. History of pulmonary embolism. F. The patient apparently has been intubated multiple times and at one point in time, she was an extracorporeal membrane oxygenation. PLAN: Is obviously to continue with apixaban. Continue with IV antibiotic. Continue with DVT and GI prophylaxis. Her blood sugar continued to be poorly controlled. I did make some adjustment of her insulin; however, her blood sugar continued to be extremely high and I will adjust her insulin further. DARION MANCINI MD DR: NICHOLAS/emmett JOB#: [id number] / [id number]
[2020-09-24] MEDS: ASPIRIN CHEWABLE 81 MG TABLET. PO SCH (10:50)
--- NOTE | 2020-09-24 11:38 | PDOC ---
CARDIOLOGY PROGRESS NOTE SUBJECTIVE: No new events. OBJECTIVE: Vital Signs/I&O: Vital Signs Date Time Temp Pulse Resp B/P (MAP) Pulse Ox O2 Delivery O2 Flow Rate FiO2 09/24/20 11:10 62 18 154/84 (107) 94 Ventilator 09/24/20 07:56 97.9 97.9 I & O 09/23/20 09/23/20 09/24/20 15:00 23:00 07:00 Intake Total 200 ml 1110 ml 1135 ml Output Total 1040 ml 800 ml 575 ml Balance -840 ml 310 ml 560 ml Objective: sedated, non-responsive normal heart tones. lungs with decreased breath sounds. obese abdomen. trace edema CURRENT MEDICATIONS: Current Medications Medications (Trade) Dose Ordered Sig/Coty Route PRN Reason Start Time Stop Time Status Last Admin Dose Admin Insulin Glargine (Lantus Syringe) 40 unit QHS SQ 09/23/20 21:00 09/24/20 09:06 DC 09/23/20 21:42 Furosemide (Lasix) 40 mg 1X ONCE IVP 09/23/20 13:00 09/23/20 13:01 DC 09/23/20 15:31 Piperacillin Sod/ Tazobactam Sod 3.375 gm/Sodium Chloride 50 ml @ 100 mls/hr Q6HRS IV 09/23/20 18:00 09/24/20 05:59 Insulin Glargine (Lantus Syringe) 30 unit BID SQ 09/24/20 09:30 09/24/20 09:34 Insulin Human Lispro (HumaLOG) 15 units Q6HRS SQ 09/24/20 09:00 09/24/20 09:33 DIAGNOSTIC TESTING: echo reviewed [facility] records reviewed. Labs: Laboratory Tests Test 09/23/20 12:54 09/23/20 18:13 09/23/20 21:31 09/23/20 23:47 Glucose (Fingerstick) 343 mg/dL (70-99) H 261 mg/dL (70-99) H 258 mg/dL (70-99) H 254 mg/dL (70-99) H Test 09/24/20 06:15 09/24/20 07:32 09/24/20 07:35 Glucose (Fingerstick) 234 mg/dL (70-99) H 232 mg/dL (70-99) H O2 Saturation 83 % (92-99) L Arterial Blood pH 7.43 (7.35-7.45) Arterial Blood pCO2 at Patient Temp 44 mmHg (35-46) Arterial Blood pO2 at Patient Temp 48 mmHg (65-108) *L Arterial Blood HCO3 28 mmol/L (21-28) Arterial Blood Base Excess 3 mmol/L (-3-3) FiO2 100 vent ASSESSMENT: 1. Hypoxic resp failure - non-cardiac in nature. 2. ILD and sarcoidosis PLAN: 1. Discussed with Dr. Dukes. No acute cardiac pathology that accounts for her chronic severe hypoxemia. Supportive care from CV stand point. Thanks. Justicifation of Admission Dx: Justifications for Admission: Justification of Admission Dx: Yes MITRA JIMÉNEZ MD Sep 24, 2020 11:38
[2020-09-25] VITALS (23 sets, daily range): BP systolic 98–167; BP diastolic 60–84
[2020-09-25] MEDS: PIPERACILLIN/TAZOBACTAM 3.375 GM in IV NORMAL SALINE 50ML 50 ML IV SCH ×5 (00:16→23:52)
[2020-09-25] MEDS: INSULIN LISPRO 300 UNITS/3 ML VIAL. SQ SCH ×10 (00:26→23:50)
[2020-09-25] MEDS: methylPREDNISolone SOD SUCC PF 40 MG/ML VIAL. IV SCH ×3 (06:14→21:35)
[2020-09-25 07:49] LABS: BASE EXCESS ABG 3 mmol/L (-3-3); HCO3 ABG 28 mmol/L (21-28); PCO2 ABG 42 mmHg (35-46); SAT O2 ABG 86 % (92-99)
[2020-09-25 07:55] LABS: FIO2 ABG 100%; PO2 ABG 49 mmHg (65-108)
[2020-09-25] MEDS: ASPIRIN CHEWABLE 81 MG TABLET. PO SCH (08:47)
[2020-09-25] MEDS: CARVEDILOL 12.5 MG TABLET. PO SCH ×2 (08:47→17:18)
[2020-09-25] MEDS: ISOSORBIDE DINITRATE 10 MG TABLET. PO SCH ×3 (08:48→21:36)
[2020-09-25] MEDS: APIXABAN 5 MG TABLET. PO SCH ×2 (08:48→21:36)
[2020-09-25] MEDS: FAMOTIDINE 20 MG/2 ML VIAL IVP SCH ×2 (08:49→21:37)
[2020-09-25] MEDS: MIDAZOLAM 100mg/100ml NS BAG 100 ML IV PRN ×2 (08:50→18:42)
--- NOTE | 2020-09-25 09:26 | PDOC ---
PULMONARY PROGRESS NOTES DATE: 09/25/20 TIME: 09:20 Subjective Patient remains on vent support, 100% and a PEEP of 12 progressive worsening hypoxia despite increasing PEEP Vitals Vital Signs Date Time Temp Pulse Resp B/P (MAP) Pulse Ox O2 Delivery O2 Flow Rate FiO2 09/25/20 08:48 58 142/77 09/25/20 08:00 97.6 20 95 Ventilator 97.6 Comments Intubated/sedated Lungs: Clear Cardiovascular: S1 Abdomen: Soft Extremities: No Edema Skin: Warm Labs Laboratory Tests Test 09/23/20 12:54 09/23/20 18:13 09/23/20 21:31 09/23/20 23:47 Glucose (Fingerstick) 343 mg/dL (70-99) 261 mg/dL (70-99) 258 mg/dL (70-99) 254 mg/dL (70-99) Test 09/24/20 06:15 09/24/20 07:32 09/24/20 07:35 09/24/20 12:11 Glucose (Fingerstick) 234 mg/dL (70-99) 232 mg/dL (70-99) 276 mg/dL (70-99) O2 Saturation 83 % (92-99) Arterial Blood pH 7.43 (7.35-7.45) Arterial Blood pCO2 at Patient Temp 44 mmHg (35-46) Arterial Blood pO2 at Patient Temp 48 mmHg (65-108) Arterial Blood HCO3 28 mmol/L (21-28) Arterial Blood Base Excess 3 mmol/L (-3-3) FiO2 100 vent Test 09/24/20 17:53 09/24/20 21:16 09/25/20 00:01 09/25/20 06:00 Glucose (Fingerstick) 290 mg/dL (70-99) 250 mg/dL (70-99) 237 mg/dL (70-99) 197 mg/dL (70-99) Test 09/25/20 07:40 O2 Saturation 86 % (92-99) Arterial Blood pH 7.44 (7.35-7.45) Arterial Blood pCO2 at Patient Temp 42 mmHg (35-46) Arterial Blood pO2 at Patient Temp 49 mmHg (65-108) Arterial Blood HCO3 28 mmol/L (21-28) Arterial Blood Base Excess 3 mmol/L (-3-3) FiO2 100% Laboratory Tests Test 09/24/20 12:11 09/24/20 17:53 09/24/20 21:16 09/25/20 00:01 Glucose (Fingerstick) 276 mg/dL (70-99) 290 mg/dL (70-99) 250 mg/dL (70-99) 237 mg/dL (70-99) Test 09/25/20 06:00 09/25/20 07:40 Glucose (Fingerstick) 197 mg/dL (70-99) O2 Saturation 86 % (92-99) Arterial Blood pH 7.44 (7.35-7.45) Arterial Blood pCO2 at Patient Temp 42 mmHg (35-46) Arterial Blood pO2 at Patient Temp 49 mmHg (65-108) Arterial Blood HCO3 28 mmol/L (21-28) Arterial Blood Base Excess 3 mmol/L (-3-3) FiO2 100% Medications Active Scripts Medications Dose Route/Sig Max Daily Dose Days Date Category Metolazone 5 Mg Tablet 5 Mg PO QODAY 09/17/20 Reported Imuran (Azathioprine) 50 Mg Tablet 1 Tab PO DAILY 30 09/17/20 Reported Albuterol Sulfate Neb Soln (Albuterol Sulfate) 2.5 Mg/3 Ml Vial.neb 1 Vial NEB PRN Q4HRS 09/17/20 Reported Carvedilol (Carvedilol) 12.5 Mg Tablet 12.5 Mg PO BIDWMEALS 09/17/20 Reported Melatonin 5 Mg Capsule 3 Mg PO HS 09/17/20 Reported Duoneb 0.5-3(2.5) Mg/3 Ml (Albuterol/Ipratropium) 3 Ml Ampul.neb 3 Ml NEB QID 09/17/20 Reported Klor-Con 10 (Potassium Chloride) 10 Meq Tablet.er 1 Tab PO DAILY 30 09/17/20 Reported Eliquis (Apixaban) 5 Mg Tablet 5 Mg PO BID 09/17/20 Reported Torsemide 20 Mg Tablet 1 Tab PO BID 09/17/20 Reported Metformin Hcl 1,000 Mg Tablet 1,000 Mg PO BIDWMEALS 09/17/20 Reported Oxycodone HCl 5 Mg Tablet 10 Mg PO PRN Q6HRS PRN 09/17/20 Reported Ambien (Zolpidem Tartrate) 5 Mg Tablet 5 Mg PO PRN QHS PRN 09/17/20 Reported Levothyroxine Sodium 125 Mcg Tablet 1 Tab PO DAILY 09/17/20 Reported Gabapentin (Gabapentin) 300 Mg Capsule 300 Mg PO BID 09/17/20 Reported Lantus Solostar (Insulin Glargine,Hum.rec.anlog) 100 Unit/1 Ml Insuln.pen 20 Unit SQ QHS 09/17/20 Reported Insulin Lispro 100 Unit/1 Ml Vial 10 Unit SQ TID 09/17/20 Reported Comments CXR IMPRESSION: 1. Patchy bilateral opacities, improved in the left upper lung zone. 2. Small bilateral pleural effusions. 3. Stable life-support devices. Impression . IMPRESSION: 1. Acute hypoxic respiratory failure, multifactorial, requiring intubation worsening oxygenation, suspected ALI/ARDS/ shunt physiology/ She was at one point about to be put on ECHMO in past / review records from suggest that she was on home O2 at 12 litres at rest/ 15 litres with exertion.Severe hypoxia was attributed to ILD from sarcoidosis/ no sig pulmonary htn on previous RHC 2. Abnormal x-ray. 3. Acute on chronic kidney injury..(Azotemia) 4. Chronic rt heart failure. 5. ? bacterial pneumonia.no positive cultures 6. COVID-19-- negative X2 7. Metabolic toxic encephalopathy. 8. Elevated liver chemistries. 9. Moderate protein malnutrition, present upon admission. Plan . PLAN: Continue current vent support, assist-control Fi02 100% and increased PEEP to 13 , no sig improvement. , already on full dose Anti-coagulation for PE, . .Pt has h/o Sarcoidosis/ ILD, IV solumedrol started for?ILD flare up.repeated COVID neg, Echo with bubble study with no shunt Follow chest x-ray and ABG, will try PCV/MARVIN 1:1 Ratio Continue empiric antibiotics, off vancomycin , added Zosyn 09/23 off heparin drip , on Eliquis for now Patient has a history of pulmonary embolism bilateral lower extremity Dopplers were negative Monitor renal function COVID-19 negative Follow cardiology recommendations DVT/GI prophylaxis prognosis poor despite aggressive care. d/w family 09/23 and cardiology. wants full aggressive care will need to be evaluated for ECHMO. d/w transfer team, awaiting their rec. d/w Sister (DPCATHERINE) in detail about options and possibility of high risk transfer. She wants to continue full aggressive care cct 40 min D/W RN and RT ANDRIY LEONE MD Sep 25, 2020 09:26
[2020-09-25] MEDS: INSULIN GLARGINE SYRINGE. SQ SCH ×2 (09:27→21:37)
[2020-09-25] MEDS: NYSTATIN TOPICAL POWDER 15GM BOTTLE. TP SCH ×2 (09:29→21:00)
--- NOTE | 2020-09-25 09:58 | PN ---
DATE: 09/25/2020 SUBJECTIVE: The patient continued to be sedated, intubated and mechanically ventilated. Continued to be hypoxic despite being on FiO2 of 100%. OBJECTIVE: GENERAL: On examining her, there is no pallor, jaundice, cyanosis or thyromegaly. No jugular venous distention. No lower limb edema. VITAL SIGNS: Her heart rate was 58, blood pressure was 142/77, temperature 97.6, respiratory rate was 20, and oxygen saturation was 95%. HEAD, EYES, EARS, NOSE and THROAT: Showed normocephalic, atraumatic. NECK: Supple. HEART: Normal first and second heart sounds. No gallop or murmur. CHEST: Showed central trachea, equally reduced expansion, reduced air entry, vesicular sounds. I could not appreciate any crepitation or rhonchi. ABDOMEN: Distended, soft, nontender. NEUROLOGICAL: She is heavily sedated. Her intake over the last 24 hours was 2445, output 2415. Her blood sugar is slightly better, but not yet optimally controlled. Her most recent white cell count was 13,800, hemoglobin 12.6, hematocrit 40, MCV 73 and platelet count 307,000. Her chemistry showed a serum sodium 142, potassium 4.9, chloride 103, bicarbonate 28, anion gap of 11, BUN 58, creatinine is 1.1. Her blood gases showed a pH 7.44, pCO2 of 42, pO2 of 49, bicarbonate 28, and oxygen saturation was 86% on FiO2 of 100%. ASSESSMENT: 1. Acute on chronic hypoxic hypercapnic respiratory failure, required intubation, mechanical ventilation. The patient continued to be hypoxic despite being on FiO2 of 100%. Her echocardiogram showed no evidence of any atrial septal defect or persistent foramen ovale. 2. Community acquired pneumonia, for which she is on IV antibiotic. 3. Acute on chronic diastolic congestive heart failure. 4. Acute on chronic kidney injury, improving. 5. COVID-19 tested negative twice. 6. Morbid obesity and obstructive sleep apnea. 7. Elevated troponin, felt to be due to demand ischemia. 8. The patient has apparently been admitted before to [facility] and was on ECMO because of severe hypoxemia. 9. The patient has multiple other medical problems including: A. Hypertension. B. Type 2 diabetes mellitus. C. Sarcoidosis. D. Chronic obstructive pulmonary disease. E. History of pulmonary embolism/ F. Probably interstitial lung disease due to sarcoidosis. The nursing staff stated that the wire preparation worker at [facility] has accepted her. PLAN: My plan is to prepare all the paperwork, and if they have a bed available and she was accepted, she can be discharged there. DARION MANCINI MD DR: NICHOLAS/emmett JOB#: [id number] / [id number]
[2020-09-25 13:40] LABS: HEMATOCRIT 42.7 % (36.0-47.0); RED BLOOD COUNT 5.8 x10^6/uL (3.50-5.40); RED CELL DISTRIBUTION WIDTH 18.5 % (11.5-14.5); WHITE BLOOD COUNT 14.7 x10^3/uL (4.0-11.0)
[2020-09-25 14:03] LABS: ALBUMIN 2.3 g/dL (3.4-5.0); ALBUMIN/GLOBULIN RATIO 0.6 (1.0-1.7); CALCIUM 8.6 mg/dL (8.5-10.1); CREATININE 1.1 mg/dL (0.6-1.0); GFR 59.9; POTASSIUM 4.4 mmol/L (3.5-5.1); TOTAL BILIRUBIN 0.3 mg/dL (0.2-1.0); TOTAL PROTEIN 6.4 g/dL (6.4-8.2)
[2020-09-26] VITALS (25 sets, daily range): BP systolic 95–168; BP diastolic 48–91
[2020-09-26] MEDS: MIDAZOLAM 100mg/100ml NS BAG 100 ML IV PRN ×2 (05:06→15:09)
[2020-09-26] MEDS: INSULIN LISPRO 300 UNITS/3 ML VIAL. SQ SCH ×6 (05:40→17:53)
[2020-09-26] MEDS: PIPERACILLIN/TAZOBACTAM 3.375 GM in IV NORMAL SALINE 50ML 50 ML IV SCH ×3 (05:43→16:30)
[2020-09-26] MEDS: methylPREDNISolone SOD SUCC PF 40 MG/ML VIAL. IV SCH ×3 (05:58→22:00)
--- NOTE | 2020-09-26 07:12 | RAD ---
EXAM: AP View of the chest DATE: 09/26/2020 5:15 AM INDICATION: Reason: Vent respiratory failure. COMPARISON: 09/23/2020 09/21/2020 FINDINGS/ IMPRESSION: ET tube is at the thoracic inlet, approximately 7 cm above the ilene. Enteric tube is partially visu alized although the distal extent is not seen given obscuration by overlying leads. Moderate cardiomegaly, stable. Bilateral parenchymal opacities are also grossly stable. Small left pleural effusion. No right pleural effusion. No pneumothorax. Electronically signed by: Kevin Douglas MD (09/26/2020 7:05 AM) JAMIL
[2020-09-26 07:45] LABS: BASE EXCESS ABG 0 mmol/L (-3-3); HCO3 ABG 24 mmol/L (21-28); PCO2 ABG 36 mmHg (35-46); SAT O2 ABG 83 % (92-99)
[2020-09-26] MEDS: CARVEDILOL 12.5 MG TABLET. PO SCH ×2 (08:00→17:00)
[2020-09-26 08:24] LABS: PO2 ABG 47 mmHg (65-108)
[2020-09-26 08:25] LABS: FIO2 ABG 100%+13
[2020-09-26] MEDS: ISOSORBIDE DINITRATE 10 MG TABLET. PO SCH ×3 (08:26→21:04)
[2020-09-26] MEDS: ASPIRIN CHEWABLE 81 MG TABLET. PO SCH (08:26)
[2020-09-26] MEDS: INSULIN GLARGINE SYRINGE. SQ SCH ×2 (08:26→21:05)
[2020-09-26] MEDS: APIXABAN 5 MG TABLET. PO SCH ×2 (08:26→21:04)
--- NOTE | 2020-09-26 08:42 | PN ---
DATE: 09/26/2020 SUBJECTIVE: The patient continues to be intubated, mechanically ventilated. She continued to be hypoxic despite being on FiO2 of 100%. In fact, her blood gases done, showed that her pO2 of only 47 mmHg. An attempt was made to transfer her to [facility], but she was not accepted there. She was accepted in [place] at [facility]; however, they do not have any beds for ECMO. PHYSICAL EXAMINATION: GENERAL: When I examined her this morning, she looked pale, but no jaundice, cyanosis or thyromegaly. No jugular venous distention. No lower limb edema. VITAL SIGNS: Her heart rate was 62, blood pressure was 135/69, temperature 97.7, respiratory rate 20, and oxygen saturation was 87% on FiO2 of 100%. HEAD, EYES, EARS, NOSE AND THROAT: Showed normocephalic, atraumatic. NECK: Supple. HEART: Normal first and second heart sounds. No gallop, rub or murmur. CHEST: Showed central trachea, equal bilateral chest expansion, air entry, vesicular sounds. No crepitation or rhonchi. ABDOMEN: Markedly distended, soft, nontender. NEUROLOGIC: She is heavily sedated. Her intake over the last 24 hours was 1470, output was 1675. LABORATORY DATA: Today's labs are still pending at the time of this dictation. As of yesterday, her serum sodium was 146, potassium 4.4, chloride 109, bicarbonate 28, anion gap of 9, BUN 51, creatinine 1.1, estimated GFR was 60 mL per minute. Her glucose was slightly better controlled 204, calcium was 8.6. Total bilirubin, AST, ALT, alkaline phosphatase were normal. Total protein 6.4, albumin was 2.3. Her white cell count was 14,700, hemoglobin 13, hematocrit 42, MCV 74 and platelet count 342,000. ASSESSMENT: 1. Acute on chronic hypoxic hypercapnic respiratory failure, requiring intubation and mechanical ventilation. The patient continues to be hypoxic despite being on FiO2 of 100%. Her echocardiogram showed no evidence of any intraatrial defect, no atrial septal defect or persistent foramen ovale. 2. Community-acquired pneumonia, for which she is on IV antibiotic. 3. Acute on chronic diastolic congestive heart failure that seems to be clinically well compensated. 4. Acute on chronic kidney injury, improving. 5. COVID-19 tested negative twice. 6. Morbid obesity and obstructive sleep apnea. 7. Elevated troponin, felt to be due to demand ischemia. 8. The patient has apparently been admitted before to [facility] and was on ECMO because of severe hypoxemia. 9. The patient has multiple other medical problems including: A. Hypertension. B. Type 2 diabetes mellitus. C. Sarcoidosis with severe interstitial lung disease. D. Chronic obstructive pulmonary disease. E. History of pulmonary embolism. PLAN: To continue all current management. Apparently, an attempt was made to transfer her to [facility] that has failed and she was accepted in [place] at [facility]; however, they did not have any beds for ECMO. DARION MANCINI MD DR: NICHOLAS/emmett JOB#: [id number] / [id number]
[2020-09-26] MEDS: NYSTATIN TOPICAL POWDER 15GM BOTTLE. TP SCH ×2 (09:00→21:11)
[2020-09-26] MEDS: FAMOTIDINE 20 MG/2 ML VIAL IVP SCH ×2 (09:00→21:04)
--- NOTE | 2020-09-26 10:49 | PDOC ---
PULMONARY PROGRESS NOTES DATE: 09/26/20 TIME: 10:44 Subjective Patient remains on vent support, 100% and a PEEP of 13 progressive worsening hypoxia despite increasing PEEP placed on PC/MARVIN Vitals Vital Signs Date Time Temp Pulse Resp B/P (MAP) Pulse Ox O2 Delivery O2 Flow Rate FiO2 09/26/20 10:00 70 20 114/61 (78) 89 Ventilator 09/26/20 08:00 98.0 98.0 Comments Intubated/sedated Lungs: Clear Cardiovascular: S1 Abdomen: Soft Extremities: No Edema Skin: Warm Labs Laboratory Tests Test 09/24/20 12:11 09/24/20 17:53 09/24/20 21:16 09/25/20 00:01 Glucose (Fingerstick) 276 mg/dL (70-99) 290 mg/dL (70-99) 250 mg/dL (70-99) 237 mg/dL (70-99) Test 09/25/20 06:00 09/25/20 07:40 09/25/20 11:58 09/25/20 12:36 Glucose (Fingerstick) 197 mg/dL (70-99) 197 mg/dL (70-99) O2 Saturation 86 % (92-99) Arterial Blood pH 7.44 (7.35-7.45) Arterial Blood pCO2 at Patient Temp 42 mmHg (35-46) Arterial Blood pO2 at Patient Temp 49 mmHg (65-108) Arterial Blood HCO3 28 mmol/L (21-28) Arterial Blood Base Excess 3 mmol/L (-3-3) FiO2 100% White Blood Count 14.7 x10^3/uL (4.0-11.0) Red Blood Count 5.80 x10^6/uL (3.50-5.40) Hemoglobin 13.0 g/dL (12.0-15.5) Hematocrit 42.7 % (36.0-47.0) Mean Corpuscular Volume 74 fL (79-100) Mean Corpuscular Hemoglobin 23 pg (25-35) Mean Corpuscular Hemoglobin Concent 31 g/dL (31-37) Red Cell Distribution Width 18.5 % (11.5-14.5) Platelet Count 343 x10^3/uL (140-400) Sodium Level 146 mmol/L (136-145) Potassium Level 4.4 mmol/L (3.5-5.1) Chloride Level 109 mmol/L (98-107) Carbon Dioxide Level 28 mmol/L (21-32) Anion Gap 9 (6-14) Blood Urea Nitrogen 51 mg/dL (7-20) Creatinine 1.1 mg/dL (0.6-1.0) Estimated GFR (Cockcroft-Gault) 59.9 BUN/Creatinine Ratio 46 (6-20) Glucose Level 204 mg/dL (70-99) Calcium Level 8.6 mg/dL (8.5-10.1) Total Bilirubin 0.3 mg/dL (0.2-1.0) Aspartate Amino Transf (AST/SGOT) 28 U/L (15-37) Alanine Aminotransferase (ALT/SGPT) 46 U/L (14-59) Alkaline Phosphatase 91 U/L (46-116) Total Protein 6.4 g/dL (6.4-8.2) Albumin 2.3 g/dL (3.4-5.0) Albumin/Globulin Ratio 0.6 (1.0-1.7) Test 09/25/20 17:49 09/25/20 23:48 09/26/20 05:37 09/26/20 07:45 Glucose (Fingerstick) 203 mg/dL (70-99) 246 mg/dL (70-99) 202 mg/dL (70-99) O2 Saturation 83 % (92-99) Arterial Blood pH 7.43 (7.35-7.45) Arterial Blood pCO2 at Patient Temp 36 mmHg (35-46) Arterial Blood pO2 at Patient Temp 47 mmHg (65-108) Arterial Blood HCO3 24 mmol/L (21-28) Arterial Blood Base Excess 0 mmol/L (-3-3) FiO2 100%+13 Test 09/26/20 08:35 Glucose (Fingerstick) 211 mg/dL (70-99) Laboratory Tests Test 09/25/20 11:58 09/25/20 12:36 09/25/20 17:49 09/25/20 23:48 Glucose (Fingerstick) 197 mg/dL (70-99) 203 mg/dL (70-99) 246 mg/dL (70-99) White Blood Count 14.7 x10^3/uL (4.0-11.0) Red Blood Count 5.80 x10^6/uL (3.50-5.40) Hemoglobin 13.0 g/dL (12.0-15.5) Hematocrit 42.7 % (36.0-47.0) Mean Corpuscular Volume 74 fL (79-100) Mean Corpuscular Hemoglobin 23 pg (25-35) Mean Corpuscular Hemoglobin Concent 31 g/dL (31-37) Red Cell Distribution Width 18.5 % (11.5-14.5) Platelet Count 343 x10^3/uL (140-400) Sodium Level 146 mmol/L (136-145) Potassium Level 4.4 mmol/L (3.5-5.1) Chloride Level 109 mmol/L (98-107) Carbon Dioxide Level 28 mmol/L (21-32) Anion Gap 9 (6-14) Blood Urea Nitrogen 51 mg/dL (7-20) Creatinine 1.1 mg/dL (0.6-1.0) Estimated GFR (Cockcroft-Gault) 59.9 BUN/Creatinine Ratio 46 (6-20) Glucose Level 204 mg/dL (70-99) Calcium Level 8.6 mg/dL (8.5-10.1) Total Bilirubin 0.3 mg/dL (0.2-1.0) Aspartate Amino Transf (AST/SGOT) 28 U/L (15-37) Alanine Aminotransferase (ALT/SGPT) 46 U/L (14-59) Alkaline Phosphatase 91 U/L (46-116) Total Protein 6.4 g/dL (6.4-8.2) Albumin 2.3 g/dL (3.4-5.0) Albumin/Globulin Ratio 0.6 (1.0-1.7) Test 09/26/20 05:37 09/26/20 07:45 09/26/20 08:35 Glucose (Fingerstick) 202 mg/dL (70-99) 211 mg/dL (70-99) O2 Saturation 83 % (92-99) Arterial Blood pH 7.43 (7.35-7.45) Arterial Blood pCO2 at Patient Temp 36 mmHg (35-46) Arterial Blood pO2 at Patient Temp 47 mmHg (65-108) Arterial Blood HCO3 24 mmol/L (21-28) Arterial Blood Base Excess 0 mmol/L (-3-3) FiO2 100%+13 Medications Active Scripts Medications Dose Route/Sig Max Daily Dose Days Date Category Metolazone 5 Mg Tablet 5 Mg PO QODAY 09/17/20 Reported Imuran (Azathioprine) 50 Mg Tablet 1 Tab PO DAILY 30 09/17/20 Reported Albuterol Sulfate Neb Soln (Albuterol Sulfate) 2.5 Mg/3 Ml Vial.neb 1 Vial NEB PRN Q4HRS 09/17/20 Reported Carvedilol (Carvedilol) 12.5 Mg Tablet 12.5 Mg PO BIDWMEALS 09/17/20 Reported Melatonin 5 Mg Capsule 3 Mg PO HS 09/17/20 Reported Duoneb 0.5-3(2.5) Mg/3 Ml (Albuterol/Ipratropium) 3 Ml Ampul.neb 3 Ml NEB QID 09/17/20 Reported Klor-Con 10 (Potassium Chloride) 10 Meq Tablet.er 1 Tab PO DAILY 30 09/17/20 Reported Eliquis (Apixaban) 5 Mg Tablet 5 Mg PO BID 09/17/20 Reported Torsemide 20 Mg Tablet 1 Tab PO BID 09/17/20 Reported Metformin Hcl 1,000 Mg Tablet 1,000 Mg PO BIDWMEALS 09/17/20 Reported Oxycodone HCl 5 Mg Tablet 10 Mg PO PRN Q6HRS PRN 09/17/20 Reported Ambien (Zolpidem Tartrate) 5 Mg Tablet 5 Mg PO PRN QHS PRN 09/17/20 Reported Levothyroxine Sodium 125 Mcg Tablet 1 Tab PO DAILY 09/17/20 Reported Gabapentin (Gabapentin) 300 Mg Capsule 300 Mg PO BID 09/17/20 Reported Lantus Solostar (Insulin Glargine,Hum.rec.anlog) 100 Unit/1 Ml Insuln.pen 20 Unit SQ QHS 09/17/20 Reported Insulin Lispro 100 Unit/1 Ml Vial 10 Unit SQ TID 09/17/20 Reported Comments CXR 09/26 ET tube is at the thoracic inlet, approximately 7 cm above the ilene. Enteric tube is partially visualized although the distal extent is not seen given obscuration by overlying leads. Moderate cardiomegaly, stable. Bilateral parenchymal opacities are also grossly stable. Small left pleural effusion. No right pleural effusion. No pneumothorax. Electronically signed by: Kevin Douglas MD (09/26/2020 7:05 AM) [facility] Impression . IMPRESSION: 1. Acute hypoxic respiratory failure, multifactorial, requiring intubation worsening oxygenation, suspected ALI/ARDS/ shunt physiology/ She was at one point about to be put on ECHMO in past / review records from suggest that she was on home O2 at 12 litres at rest/ 15 litres with exertion.Severe hypoxia was attributed to ILD from sarcoidosis/ no sig pulmonary htn on previous RHC 2. Abnormal x-ray. 3. Acute on chronic kidney injury..(Azotemia) 4. Chronic rt heart failure. 5. ? bacterial pneumonia.no positive cultures 6. COVID-19-- negative X2 7. Metabolic toxic encephalopathy. 8. Elevated liver chemistries. 9. Moderate protein malnutrition, present upon admission. Plan . PLAN: Pt on PC/MARVIN , Fi02 100% and PEEP OF 13 , no sig improvement. Will increase PC to 28 , already on full dose Anti-coagulation for PE, . .Pt has h/o Sarcoidosis/ ILD, IV solumedrol started for?ILD flare up.repeated COVID neg, Echo with bubble study with no shunt Follow chest x-ray and ABG, will try PCV/MARVIN 1:1 Ratio Continue empiric antibiotics, off vancomycin , added Zosyn 09/23 off heparin drip , on Eliquis for now Patient has a history of pulmonary embolism bilateral lower extremity Dopplers were negative Monitor renal function COVID-19 negative Follow cardiology recommendations DVT/GI prophylaxis prognosis poor despite aggressive care. d/w family 09/23 and cardiology. sister wants full aggressive care [facility] declined ECHMO., no ECHMO beds at [facility] d/w Sister (DPOA) in detail 09/25 cct 30 min D/W RN and RT / advance ET ANDRIY LEONE MD Sep 26, 2020 10:49
--- NOTE | 2020-09-26 11:33 | NUR ---
SS following up with discharge planning. SS reviewed pt chart and discussed with pt RN. Pt is currently on the vent at 100%. COVID19 negative. Pt on IV Zosyn. Family requested transfer to other hospital for ECCMO. Pt was declined at and [facility] reported no beds available. Not stable. Dr. Petersen discussed with pt's family and pt's family requesting full aggressive care. Full Code. SS will continue to follow for discharge planning.
--- NOTE | 2020-09-26 13:23 | PDOC ---
[employer] 09/26/20 1323: CARDIO Progress Notes Date and Time Date of Service 09/26/20 Time of Evaluation 1310 Subjective Subjective: Other (sedated) Vitals Vitals Vital Signs Date Time Temp Pulse Resp B/P (MAP) Pulse Ox O2 Delivery O2 Flow Rate FiO2 09/26/20 13:00 60 20 116/62 (80) 86 Ventilator 09/26/20 12:00 98.1 98.1 Weight Weight [ ] Input and Output Intake and Output Intake and Output 09/26/20 07:00 Intake Total 2684 ml Output Total 1580 ml Balance 1104 ml Intake IV Total 423 ml Tube Feeding 1736 ml Other 525 ml Output Urine Total 1580 ml # Bowel Movements 1 Laboratory Labs Laboratory Tests Test 09/25/20 17:49 09/25/20 23:48 09/26/20 05:37 09/26/20 07:45 Glucose (Fingerstick) 203 mg/dL (70-99) 246 mg/dL (70-99) 202 mg/dL (70-99) O2 Saturation 83 % (92-99) Arterial Blood pH 7.43 (7.35-7.45) Arterial Blood pCO2 at Patient Temp 36 mmHg (35-46) Arterial Blood pO2 at Patient Temp 47 mmHg (65-108) Arterial Blood HCO3 24 mmol/L (21-28) Arterial Blood Base Excess 0 mmol/L (-3-3) FiO2 100%+13 Test 09/26/20 08:35 Glucose (Fingerstick) 211 mg/dL (70-99) Physical Exam HEENT: Neck Supple W Full Motion Chest: Symmetric LUNGS: Other (intubated, vent) Heart: RRR (SR with no significant ectopies) Abdomen: Soft N/T Extremities: Other (1+ bilateral LE pitting edema) Neurology: other (sedated) Assessment Assessment 1. Acute respiratory failure: Multifactorial with AECOPD, pneumonia, ILD, and sarcoidosis. Intubated/vent, covid neg x2. [facility] declined ECHMO 2. NSTEMI: peaked at 0.975, suspect demand mediated. EF and WM nml 3. Metabolic encephalopathy 4. NICOLAS; improved 5. Diabetes, II 6. Hx of PE 7. Hypertension; controlled Recommendations Continue current BP regimen via OG. Secondary prevention measures OAC with Eiquis Lasix prn Ongoing lung optimization Supportive care Justicifation of Admission Dx: Justifications for Admission: Justification of Admission Dx: Yes MITRA JIMÉNEZ MD 09/26/20 2304: CARDIO Progress Notes Plan Plan Pt. seen and examined. Agree with above FINANCIAL SERVICES CONSULTANT note. Supportive care. Poor parts counterman prognosis. YOANA BENAVIDES APRN Sep 26, 2020 13:23 MITRA JIMÉNEZ MD Sep 26, 2020 23:04
[2020-09-26] MEDS: ANTI-COAG MONITOR BY PHARMACY. MC PRN (15:26)
[2020-09-27] VITALS (24 sets, daily range): BP systolic 94–158; BP diastolic 60–80
[2020-09-27] MEDS: PIPERACILLIN/TAZOBACTAM 3.375 GM in IV NORMAL SALINE 50ML 50 ML IV SCH ×4 (00:23→18:44)
[2020-09-27] MEDS: INSULIN LISPRO 300 UNITS/3 ML VIAL. SQ SCH ×8 (00:29→18:00)
--- NOTE | 2020-09-27 00:30 | NUR ---
Midnight Insulin sliding scale dose held to avoid hypoglycemia for FSBS 181--scheduled dose of Humalog 15Units administered.
[2020-09-27] MEDS: MIDAZOLAM 100mg/100ml NS BAG 100 ML IV PRN ×3 (00:37→22:58)
[2020-09-27] MEDS: methylPREDNISolone SOD SUCC PF 40 MG/ML VIAL. IV SCH ×3 (05:57→21:33)
[2020-09-27 07:43] LABS: BASE EXCESS ABG 1 mmol/L (-3-3); HCO3 ABG 24 mmol/L (21-28); PCO2 ABG 34 mmHg (35-46); SAT O2 ABG 85 % (92-99)
[2020-09-27 08:11] LABS: FIO2 ABG 100%+13; PO2 ABG 48 mmHg (65-108)
[2020-09-27 08:40] LABS: HEMOGLOBIN 12.6 g/dL (12.0-15.5); RED BLOOD COUNT 5.64 x10^6/uL (3.50-5.40); WHITE BLOOD COUNT 17.1 x10^3/uL (4.0-11.0)
[2020-09-27] MEDS: ISOSORBIDE DINITRATE 10 MG TABLET. PO SCH ×3 (09:00→21:28)
[2020-09-27 09:04] LABS: ALBUMIN 2.2 g/dL (3.4-5.0); ALBUMIN/GLOBULIN RATIO 0.6 (1.0-1.7); CALCIUM 8.5 mg/dL (8.5-10.1); CREATININE 1.2 mg/dL (0.6-1.0); GFR 54.2; POTASSIUM 4.1 mmol/L (3.5-5.1); TOTAL BILIRUBIN 0.4 mg/dL (0.2-1.0); TOTAL PROTEIN 5.6 g/dL (6.4-8.2)
--- NOTE | 2020-09-27 09:20 | PN ---
DATE: 09/27/2020 SUBJECTIVE: The patient continued to be intubated, mechanically ventilated and heavily sedated. She continued to be on FiO2 of 100%; however, her oxygen saturation by blood gas is only 85% with pO2 of only 48%. PHYSICAL EXAMINATION: GENERAL: When I examined her, there was no pallor, jaundice, cyanosis or thyromegaly. No jugular venous distention. No limb edema. VITAL SIGNS: Her heart rate was 54, blood pressure was 116/66, temperature was 97.5, respiratory rate was 20, and oxygen saturation was 96% on FiO2 of 100%. HEAD, EYES, EARS, NOSE AND THROAT: Showed normocephalic, atraumatic. She has orotracheal and orogastric tube in place. NECK: Supple. HEART: Normal first and second heart sounds. No gallop or murmur. CHEST: Clear to auscultation. No crepitation or rhonchi. ABDOMEN: Distended, soft, nontender. NEUROLOGIC: She is heavily sedated. Her intake over the last 24 hours was 2684 and output was 1600. LABORATORY DATA: Today's labs are still pending at the time of this dictation; however, her blood gas this morning showed a pH of 7.48, pCO2 of 34, pO2 of 48, bicarbonate 24, and oxygen saturation was 85% on FiO2 of 100%. ASSESSMENT: 1. Acute on chronic hypoxic hypercapnic respiratory failure, requiring intubation and mechanical ventilation. The patient continues to be hypoxic despite being on FiO2 of 100%. Her echocardiogram showed no evidence of atrial septal defect or resistant foramen ovale. 2. Community-acquired pneumonia, for which she is on IV antibiotic. 3. Acute on chronic diastolic congestive heart failure, seems to be clinically well compensated. 4. Acute on chronic kidney injury, improving. 5. COVID-19 tested negative twice. 6. Morbid obesity, obstructive sleep apnea. 7. Elevated troponin, felt to be due to demand ischemia. 8. The patient has apparently been admitted before to [facility] and was on ECMO because of severe hypoxemia. At home, she is on 12 liters at rest and 15 liters on exertion. 9. The patient has multiple other medical problems including: A. Hypertension. B. Type 2 diabetes mellitus. C. Sarcoidosis with severe interstitial lung disease. D. Chronic obstructive pulmonary disease. E. History of pulmonary embolism. PLAN: To continue with mechanical ventilation and wean as tolerated. Continue with IV antibiotic. Continue with steroids. Continue with apixaban for DVT and PE treatment. Continue to monitor her blood sugar and adjust insulin as needed. DARION MANCINI MD DR: NICHOLAS/emmett JOB#: [id number] / [id number]
[2020-09-27] MEDS: ASPIRIN CHEWABLE 81 MG TABLET. PO SCH (09:40)
[2020-09-27] MEDS: APIXABAN 5 MG TABLET. PO SCH ×2 (09:40→21:28)
[2020-09-27] MEDS: FAMOTIDINE 20 MG/2 ML VIAL IVP SCH ×2 (09:41→21:27)
[2020-09-27] MEDS: INSULIN GLARGINE SYRINGE. SQ SCH ×2 (09:41→21:30)
--- NOTE | 2020-09-27 10:18 | PDOC ---
YOANA BENAVIDES VISITING PROFESSOR 09/27/20 1018: CARDIO Progress Notes Date and Time Date of Service 09/27/20 Time of Evaluation 1015 Subjective Subjective: Other (sedated) Vitals Vitals Vital Signs Date Time Temp Pulse Resp B/P (MAP) Pulse Ox O2 Delivery O2 Flow Rate FiO2 09/27/20 10:00 69 20 122/71 (88) 94 Ventilator 09/27/20 08:01 96.9 96.9 Weight Weight [ ] Input and Output Intake and Output Intake and Output 09/27/20 06:59 Intake Total 2829 ml Output Total 1370 ml Balance 1459 ml Intake IV Total 677 ml Tube Feeding 1452 ml Other 700 ml Output Urine Total 1370 ml Gastric Drainage Total 0 ml # Bowel Movements 5 Laboratory Labs Laboratory Tests Test 09/26/20 14:14 09/26/20 17:49 09/27/20 08:00 09/27/20 08:30 Glucose (Fingerstick) 158 mg/dL (70-99) 174 mg/dL (70-99) O2 Saturation 85 % (92-99) Arterial Blood pH 7.48 (7.35-7.45) Arterial Blood pCO2 at Patient Temp 34 mmHg (35-46) Arterial Blood pO2 at Patient Temp 48 mmHg (65-108) Arterial Blood HCO3 24 mmol/L (21-28) Arterial Blood Base Excess 1 mmol/L (-3-3) FiO2 100%+13 White Blood Count 17.1 x10^3/uL (4.0-11.0) Red Blood Count 5.64 x10^6/uL (3.50-5.40) Hemoglobin 12.6 g/dL (12.0-15.5) Hematocrit 41.0 % (36.0-47.0) Mean Corpuscular Volume 73 fL (79-100) Mean Corpuscular Hemoglobin 22 pg (25-35) Mean Corpuscular Hemoglobin Concent 31 g/dL (31-37) Red Cell Distribution Width 18.0 % (11.5-14.5) Platelet Count 345 x10^3/uL (140-400) Sodium Level 151 mmol/L (136-145) Potassium Level 4.1 mmol/L (3.5-5.1) Chloride Level 113 mmol/L (98-107) Carbon Dioxide Level 25 mmol/L (21-32) Anion Gap 13 (6-14) Blood Urea Nitrogen 52 mg/dL (7-20) Creatinine 1.2 mg/dL (0.6-1.0) Estimated GFR (Cockcroft-Gault) 54.2 BUN/Creatinine Ratio 43 (6-20) Glucose Level 166 mg/dL (70-99) Calcium Level 8.5 mg/dL (8.5-10.1) Total Bilirubin 0.4 mg/dL (0.2-1.0) Aspartate Amino Transf (AST/SGOT) 36 U/L (15-37) Alanine Aminotransferase (ALT/SGPT) 57 U/L (14-59) Alkaline Phosphatase 81 U/L (46-116) Total Protein 5.6 g/dL (6.4-8.2) Albumin 2.2 g/dL (3.4-5.0) Albumin/Globulin Ratio 0.6 (1.0-1.7) Physical Exam HEENT: Neck Supple W Full Motion Chest: Symmetric LUNGS: Other (intubated, vent) Heart: RRR (SR with no significant ectopies) Abdomen: Soft N/T Extremities: Other (1+ bilateral LE pitting edema) Neurology: other (sedated) Assessment Assessment 1. Acute respiratory failure: Multifactorial with AECOPD, pneumonia, ILD, and sarcoidosis. Intubated/vent, covid neg x2. Echo with bubble negative for interatrial shunting. [facility] declined ECHMO 2. NSTEMI: peaked at 0.975, suspect demand mediated. EF and WM nml 3. Metabolic encephalopathy 4. NICOLAS; improved 5. Diabetes, II 6. Hx of PE 7. Hypertension; low end Recommendations Hold antiHTN therapy as warranted for hypotension Secondary prevention measures OAC with Eiquis Lasix prn Ongoing lung optimization Supportive care Justicifation of Admission Dx: Justifications for Admission: Justification of Admission Dx: Yes MITRA JIMÉNEZ MD 09/27/20 1643: YOANA BENAVIDES APRN Sep 27, 2020 10:18 MITRA JIMÉNEZ MD Sep 27, 2020 16:43
[2020-09-27] MEDS: CARVEDILOL 12.5 MG TABLET. PO SCH ×2 (11:42→17:00)
--- NOTE | 2020-09-27 12:14 | PDOC ---
PULMONARY PROGRESS NOTES DATE: 09/27/20 TIME: 12:07 Subjective Patient remains on vent support, 100% and a PEEP of 13 progressive worsening hypoxia despite increasing PEEP placed on PC/MARVIN Vitals Vital Signs Date Time Temp Pulse Resp B/P (MAP) Pulse Ox O2 Delivery O2 Flow Rate FiO2 09/27/20 11:42 64 114/62 09/27/20 11:23 95 Ventilator 09/27/20 11:00 20 09/27/20 08:01 96.9 96.9 Comments Intubated/sedated Lungs: Clear Cardiovascular: S1 Abdomen: Soft Extremities: No Edema Skin: Warm Labs Laboratory Tests Test 09/25/20 12:36 09/25/20 17:49 09/25/20 23:48 09/26/20 05:37 White Blood Count 14.7 x10^3/uL (4.0-11.0) Red Blood Count 5.80 x10^6/uL (3.50-5.40) Hemoglobin 13.0 g/dL (12.0-15.5) Hematocrit 42.7 % (36.0-47.0) Mean Corpuscular Volume 74 fL (79-100) Mean Corpuscular Hemoglobin 23 pg (25-35) Mean Corpuscular Hemoglobin Concent 31 g/dL (31-37) Red Cell Distribution Width 18.5 % (11.5-14.5) Platelet Count 343 x10^3/uL (140-400) Sodium Level 146 mmol/L (136-145) Potassium Level 4.4 mmol/L (3.5-5.1) Chloride Level 109 mmol/L (98-107) Carbon Dioxide Level 28 mmol/L (21-32) Anion Gap 9 (6-14) Blood Urea Nitrogen 51 mg/dL (7-20) Creatinine 1.1 mg/dL (0.6-1.0) Estimated GFR (Cockcroft-Gault) 59.9 BUN/Creatinine Ratio 46 (6-20) Glucose Level 204 mg/dL (70-99) Calcium Level 8.6 mg/dL (8.5-10.1) Total Bilirubin 0.3 mg/dL (0.2-1.0) Aspartate Amino Transf (AST/SGOT) 28 U/L (15-37) Alanine Aminotransferase (ALT/SGPT) 46 U/L (14-59) Alkaline Phosphatase 91 U/L (46-116) Total Protein 6.4 g/dL (6.4-8.2) Albumin 2.3 g/dL (3.4-5.0) Albumin/Globulin Ratio 0.6 (1.0-1.7) Glucose (Fingerstick) 203 mg/dL (70-99) 246 mg/dL (70-99) 202 mg/dL (70-99) Test 09/26/20 07:45 09/26/20 08:35 09/26/20 14:14 09/26/20 17:49 O2 Saturation 83 % (92-99) Arterial Blood pH 7.43 (7.35-7.45) Arterial Blood pCO2 at Patient Temp 36 mmHg (35-46) Arterial Blood pO2 at Patient Temp 47 mmHg (65-108) Arterial Blood HCO3 24 mmol/L (21-28) Arterial Blood Base Excess 0 mmol/L (-3-3) FiO2 100%+13 Glucose (Fingerstick) 211 mg/dL (70-99) 158 mg/dL (70-99) 174 mg/dL (70-99) Test 09/27/20 08:00 09/27/20 08:30 O2 Saturation 85 % (92-99) Arterial Blood pH 7.48 (7.35-7.45) Arterial Blood pCO2 at Patient Temp 34 mmHg (35-46) Arterial Blood pO2 at Patient Temp 48 mmHg (65-108) Arterial Blood HCO3 24 mmol/L (21-28) Arterial Blood Base Excess 1 mmol/L (-3-3) FiO2 100%+13 White Blood Count 17.1 x10^3/uL (4.0-11.0) Red Blood Count 5.64 x10^6/uL (3.50-5.40) Hemoglobin 12.6 g/dL (12.0-15.5) Hematocrit 41.0 % (36.0-47.0) Mean Corpuscular Volume 73 fL (79-100) Mean Corpuscular Hemoglobin 22 pg (25-35) Mean Corpuscular Hemoglobin Concent 31 g/dL (31-37) Red Cell Distribution Width 18.0 % (11.5-14.5) Platelet Count 345 x10^3/uL (140-400) Sodium Level 151 mmol/L (136-145) Potassium Level 4.1 mmol/L (3.5-5.1) Chloride Level 113 mmol/L (98-107) Carbon Dioxide Level 25 mmol/L (21-32) Anion Gap 13 (6-14) Blood Urea Nitrogen 52 mg/dL (7-20) Creatinine 1.2 mg/dL (0.6-1.0) Estimated GFR (Cockcroft-Gault) 54.2 BUN/Creatinine Ratio 43 (6-20) Glucose Level 166 mg/dL (70-99) Calcium Level 8.5 mg/dL (8.5-10.1) Total Bilirubin 0.4 mg/dL (0.2-1.0) Aspartate Amino Transf (AST/SGOT) 36 U/L (15-37) Alanine Aminotransferase (ALT/SGPT) 57 U/L (14-59) Alkaline Phosphatase 81 U/L (46-116) Total Protein 5.6 g/dL (6.4-8.2) Albumin 2.2 g/dL (3.4-5.0) Albumin/Globulin Ratio 0.6 (1.0-1.7) Laboratory Tests Test 09/26/20 14:14 09/26/20 17:49 09/27/20 08:00 09/27/20 08:30 Glucose (Fingerstick) 158 mg/dL (70-99) 174 mg/dL (70-99) O2 Saturation 85 % (92-99) Arterial Blood pH 7.48 (7.35-7.45) Arterial Blood pCO2 at Patient Temp 34 mmHg (35-46) Arterial Blood pO2 at Patient Temp 48 mmHg (65-108) Arterial Blood HCO3 24 mmol/L (21-28) Arterial Blood Base Excess 1 mmol/L (-3-3) FiO2 100%+13 White Blood Count 17.1 x10^3/uL (4.0-11.0) Red Blood Count 5.64 x10^6/uL (3.50-5.40) Hemoglobin 12.6 g/dL (12.0-15.5) Hematocrit 41.0 % (36.0-47.0) Mean Corpuscular Volume 73 fL (79-100) Mean Corpuscular Hemoglobin 22 pg (25-35) Mean Corpuscular Hemoglobin Concent 31 g/dL (31-37) Red Cell Distribution Width 18.0 % (11.5-14.5) Platelet Count 345 x10^3/uL (140-400) Sodium Level 151 mmol/L (136-145) Potassium Level 4.1 mmol/L (3.5-5.1) Chloride Level 113 mmol/L (98-107) Carbon Dioxide Level 25 mmol/L (21-32) Anion Gap 13 (6-14) Blood Urea Nitrogen 52 mg/dL (7-20) Creatinine 1.2 mg/dL (0.6-1.0) Estimated GFR (Cockcroft-Gault) 54.2 BUN/Creatinine Ratio 43 (6-20) Glucose Level 166 mg/dL (70-99) Calcium Level 8.5 mg/dL (8.5-10.1) Total Bilirubin 0.4 mg/dL (0.2-1.0) Aspartate Amino Transf (AST/SGOT) 36 U/L (15-37) Alanine Aminotransferase (ALT/SGPT) 57 U/L (14-59) Alkaline Phosphatase 81 U/L (46-116) Total Protein 5.6 g/dL (6.4-8.2) Albumin 2.2 g/dL (3.4-5.0) Albumin/Globulin Ratio 0.6 (1.0-1.7) Medications Active Scripts Medications Dose Route/Sig Max Daily Dose Days Date Category Metolazone 5 Mg Tablet 5 Mg PO QODAY 09/17/20 Reported Imuran (Azathioprine) 50 Mg Tablet 1 Tab PO DAILY 30 09/17/20 Reported Albuterol Sulfate Neb Soln (Albuterol Sulfate) 2.5 Mg/3 Ml Vial.neb 1 Vial NEB PRN Q4HRS 09/17/20 Reported Carvedilol (Carvedilol) 12.5 Mg Tablet 12.5 Mg PO BIDWMEALS 09/17/20 Reported Melatonin 5 Mg Capsule 3 Mg PO HS 09/17/20 Reported Duoneb 0.5-3(2.5) Mg/3 Ml (Albuterol/Ipratropium) 3 Ml Ampul.neb 3 Ml NEB QID 09/17/20 Reported Klor-Con 10 (Potassium Chloride) 10 Meq Tablet.er 1 Tab PO DAILY 30 09/17/20 Reported Eliquis (Apixaban) 5 Mg Tablet 5 Mg PO BID 09/17/20 Reported Torsemide 20 Mg Tablet 1 Tab PO BID 09/17/20 Reported Metformin Hcl 1,000 Mg Tablet 1,000 Mg PO BIDWMEALS 09/17/20 Reported Oxycodone HCl 5 Mg Tablet 10 Mg PO PRN Q6HRS PRN 09/17/20 Reported Ambien (Zolpidem Tartrate) 5 Mg Tablet 5 Mg PO PRN QHS PRN 09/17/20 Reported Levothyroxine Sodium 125 Mcg Tablet 1 Tab PO DAILY 09/17/20 Reported Gabapentin (Gabapentin) 300 Mg Capsule 300 Mg PO BID 09/17/20 Reported Lantus Solostar (Insulin Glargine,Hum.rec.anlog) 100 Unit/1 Ml Insuln.pen 20 Unit SQ QHS 09/17/20 Reported Insulin Lispro 100 Unit/1 Ml Vial 10 Unit SQ TID 09/17/20 Reported Comments CXR 09/26 ET tube is at the thoracic inlet, approximately 7 cm above the ilene. Enteric tube is partially visualized although the distal extent is not seen given obscuration by overlying leads. Moderate cardiomegaly, stable. Bilateral parenchymal opacities are also grossly stable. Small left pleural effusion. No right pleural effusion. No pneumothorax. Electronically signed by: Kevin Douglas MD (09/26/2020 7:05 AM) [facility] Impression . IMPRESSION: 1. Acute hypoxic respiratory failure, multifactorial, requiring intubation worsening oxygenation, suspected ALI/ARDS/ shunt physiology/ She was at one point about to be put on ECHMO in past / review records from suggest that she was on home O2 at 12 litres at rest/ 15 litres with exertion.Severe hypoxia was attributed to ILD from sarcoidosis/ no sig pulmonary htn on previous RHC 2. Abnormal x-ray. 3. Acute on chronic kidney injury..(Azotemia) 4. Chronic rt heart failure. 5. ? bacterial pneumonia.no positive cultures 6. COVID-19-- negative X2 7. Metabolic toxic encephalopathy. 8. Elevated liver chemistries. 9. Moderate protein malnutrition, present upon admission. Plan . PLAN: Pt on PC/MARVIN , Fi02 100% and PEEP OF 13 , no sig improvement. Will increase PC to 28 , already on full dose Anti-coagulation for PE, . .Pt has h/o Sarcoidosis/ ILD, IV solumedrol started for?ILD flare up.repeated COVID neg, Echo with bubble study with no shunt Follow chest x-ray and ABG, will try PCV/MARVIN 1:1 Ratio Continue empiric antibiotics, off vancomycin , added Zosyn 09/23 off heparin drip , on Eliquis for now Patient has a history of pulmonary embolism bilateral lower extremity Dopplers were negative Monitor renal function COVID-19 negative Follow cardiology recommendations DVT/GI prophylaxis prognosis poor despite aggressive care. d/w sister in detail 09/26 and cardiology. . Prognosis extremely poor. Rec DNR. SHE WILL TALK TO FAMILY [facility] declined ECHMO., no ECHMO beds at [facility] d/w Sister (DPOA) in detail 09/26 cct 35 min D/W RN and RT ANDRIY LEOEN MD Sep 27, 2020 12:14
[2020-09-27] MEDS: NYSTATIN TOPICAL POWDER 15GM BOTTLE. TP SCH ×2 (12:43→21:30)
--- NOTE | 2020-09-27 15:21 | NUR ---
SS following up with discharge planning. SS reviewed pt chart and discussed with pt RN. P is currently on the vent at 100%. Pt on IV Zosyn. Pressure control. Full Code. COVID19 negative. Per RN, pt's family still wanting pt to transfer to [facility] for ECCMO. SS contacted [facility] transfer team, , and was informed that all ECCMO machines are currently in use and no beds available at this time. Pt's RN notified. SS will continue to follow for discharge planning.
[2020-09-28] VITALS (23 sets, daily range): BP systolic 94–165; BP diastolic 54–88
[2020-09-28] MEDS: PIPERACILLIN/TAZOBACTAM 3.375 GM in IV NORMAL SALINE 50ML 50 ML IV SCH ×5 (00:10→23:35)
[2020-09-28] MEDS: INSULIN LISPRO 300 UNITS/3 ML VIAL. SQ SCH ×10 (00:19→23:36)
--- NOTE | 2020-09-28 01:40 | NUR ---
Patient's oxygen saturation has steadily decreased since 1999 with remarkable decrease since midnight without increasing after suctioning/turning--sat now 78% (92% at midnight). Dr Roseline marmolejo, returned page, notified of above and notified patient has been receiving 200cc H20 flushes per OG Q4HRS; orders received to give Lasix 40MG IVP now. See orders
[2020-09-28] MEDS ORDERED: FUROSEMIDE 40 MG/4 ML VIAL. IVP ONE (02:15)
[2020-09-28] MEDS: methylPREDNISolone SOD SUCC PF 40 MG/ML VIAL. IV SCH ×3 (06:00→22:00)
--- NOTE | 2020-09-28 07:26 | PN ---
DATE: 09/28/2020 SUBJECTIVE: The patient continues to be sedated, intubated and mechanically ventilated. She apparently desaturated last night down to 78% despite being on FiO2 of 100%, was given Lasix and has about 1000 mL of urine output this morning and her oxygen saturation has improved to 81-84%. PHYSICAL EXAMINATION: GENERAL: When I examined her, she looked well and was clearly in no apparent respiratory distress. There was no pallor, jaundice, cyanosis or thyromegaly. No jugular venous distention. No lower limb edema. VITAL SIGNS: Her heart rate was 51, blood pressure was 120/70, temperature was 97.7, respiratory rate 20, and oxygen saturation was 84% on FiO2 of 100%. HEENT: Showed normocephalic, atraumatic. NECK: Supple. HEART: Normal first and second heart sounds. No gallop or murmur. CHEST: Clear to auscultation. No crepitation or rhonchi anteriorly. ABDOMEN: Distended, soft, nontender. NEUROLOGIC: She is heavily sedated. Her intake over the last 24 hours was 3100, output was 1370. LABORATORY DATA: As of yesterday, her sodium was 151, potassium 4.1, chloride 113, bicarbonate 25, anion gap of 13, BUN 52, creatinine 1.2, estimated GFR was 54 mL per minute. Her glucose was 166, calcium was 8.5. Total bilirubin, AST, ALT, alkaline phosphatase were normal. Total protein was 5.6, albumin was 2.2. Her white cell count was 17,100, hemoglobin 12.6, hematocrit 41, MCV 73 and platelet count 345,000. ASSESSMENT: 1. Acute on chronic hypoxic hypercapnic respiratory failure, requiring intubation and mechanical ventilation. The patient continues to be hypoxic despite being on FiO2 of 100%. She actually desaturated last night down to 78% and was given IV Lasix. Her echocardiogram showed no evidence of atrial septal defect or persistent foramen ovale. 2. Community-acquired pneumonia, for which she is on IV antibiotic. 3. Acute on chronic diastolic congestive heart failure, this seems to be clinically well compensated. 4. Acute on chronic kidney injury, improving. 5. COVID-19 tested negative twice. 6. Morbid obesity and obstructive sleep apnea. 7. Elevated troponin, felt to be due to demand ischemia. 8. The patient has apparently been admitted before to [facility] and was on a ECMO for severe hypoxemia. At home, she is now on 12 liters of oxygen at rest and 15 liters on exertion. 9. The patient has multiple other medical problems including: A. Hypertension. B. Type 2 diabetes mellitus, seems to be reasonably controlled. C. 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 D. Chronic obstructive pulmonary disease. E. History of pulmonary embolism. PLAN: 1. To continue mechanical ventilation. 2. Continue with IV antibiotic. 3. Continue with IV steroids. 4. Continue with apixaban for DVT and PE treatment. Continue to monitor her blood sugar and adjust insulin as needed. Her overall prognosis is extremely poor. DARION MANCINI MD DR: NICHOLAS/emmett JOB#: [id number] / [id number]
[2020-09-28] MEDS: CARVEDILOL 12.5 MG TABLET. PO SCH ×2 (08:00→16:09)
[2020-09-28 09:00] LABS: BASO % 0 % (0-3); EOS % 0 % (0-3); HEMATOCRIT 42.8 % (36.0-47.0); LYMPH # 0.6 x10^3/uL (1.0-4.8); LYMPH % 3 % (24-48); MEAN CORPUSCULAR HEMOGLOBIN 22 pg (25-35); MEAN CORPUSCULAR HGB CONC 31 g/dL (31-37); MEAN CORPUSCULAR VOLUME 73 fL (79-100); MONO # 0.9 x10^3/uL (0.0-1.1); MONO % 5 % (0-9); NEUT # 17.5 x10^3/uL (1.8-7.7); NEUT % 92 % (31-73); PLATELET COUNT 314 x10^3/uL (140-400); RED BLOOD COUNT 5.83 x10^6/uL (3.50-5.40); RED CELL DISTRIBUTION WIDTH 18.3 % (11.5-14.5); WHITE BLOOD COUNT 19.1 x10^3/uL (4.0-11.0)
[2020-09-28] MEDS ORDERED: FUROSEMIDE 40 MG/4 ML VIAL. IVP SCH (09:00)
[2020-09-28] MEDS: INSULIN GLARGINE SYRINGE. SQ SCH ×2 (09:00→20:41)
[2020-09-28] MEDS: ISOSORBIDE DINITRATE 10 MG TABLET. PO SCH ×3 (09:00→20:41)
[2020-09-28 09:23] LABS: CALCIUM 8.5 mg/dL (8.5-10.1); CREATININE 1.2 mg/dL (0.6-1.0); GFR 54.2; MAGNESIUM 2.4 mg/dL (1.8-2.4); POTASSIUM 3.4 mmol/L (3.5-5.1)
[2020-09-28] MEDS: ANTI-COAG MONITOR BY PHARMACY. MC PRN (09:43)
[2020-09-28 09:56] LABS: BASE EXCESS ABG 0 mmol/L (-3-3); HCO3 ABG 23 mmol/L (21-28); PCO2 ABG 33 mmHg (35-46); SAT O2 ABG 84 % (92-99)
[2020-09-28 09:59] LABS: PO2 ABG 49 mmHg (65-108)
[2020-09-28 10:01] LABS: FIO2 ABG 100
--- NOTE | 2020-09-28 10:24 | NUR ---
SS following up with discharge planning. SS reviewed pt chart and discussed with pt RN. Pt is currently on the vent at 100%. COVID19 negative. Pt on IV Zosyn. Per RN, Sat's dropping. Not stable. Dr. Petersen discussing goals of care with family. SS will continue to follow for discharge planning.
--- NOTE | 2020-09-28 11:27 | PDOC ---
PULMONARY PROGRESS NOTES DATE: 09/28/20 TIME: 11:22 Subjective Patient remains on vent support, PCV/GUV324% and a PEEP of 13 progressive worsening hypoxia despite increasing PEEP Vitals Vital Signs Date Time Temp Pulse Resp B/P (MAP) Pulse Ox O2 Delivery O2 Flow Rate FiO2 09/28/20 10:19 20 84 Ventilator 84.0 09/28/20 09:00 54 130/67 (88) 09/28/20 08:00 97.7 97.7 Comments Intubated/sedated Lungs: Clear Cardiovascular: S1 Abdomen: Soft Extremities: No Edema Skin: Warm Labs Laboratory Tests Test 09/26/20 14:14 09/26/20 17:49 09/27/20 08:00 09/27/20 08:30 Glucose (Fingerstick) 158 mg/dL (70-99) 174 mg/dL (70-99) O2 Saturation 85 % (92-99) Arterial Blood pH 7.48 (7.35-7.45) Arterial Blood pCO2 at Patient Temp 34 mmHg (35-46) Arterial Blood pO2 at Patient Temp 48 mmHg (65-108) Arterial Blood HCO3 24 mmol/L (21-28) Arterial Blood Base Excess 1 mmol/L (-3-3) FiO2 100%+13 White Blood Count 17.1 x10^3/uL (4.0-11.0) Red Blood Count 5.64 x10^6/uL (3.50-5.40) Hemoglobin 12.6 g/dL (12.0-15.5) Hematocrit 41.0 % (36.0-47.0) Mean Corpuscular Volume 73 fL (79-100) Mean Corpuscular Hemoglobin 22 pg (25-35) Mean Corpuscular Hemoglobin Concent 31 g/dL (31-37) Red Cell Distribution Width 18.0 % (11.5-14.5) Platelet Count 345 x10^3/uL (140-400) Sodium Level 151 mmol/L (136-145) Potassium Level 4.1 mmol/L (3.5-5.1) Chloride Level 113 mmol/L (98-107) Carbon Dioxide Level 25 mmol/L (21-32) Anion Gap 13 (6-14) Blood Urea Nitrogen 52 mg/dL (7-20) Creatinine 1.2 mg/dL (0.6-1.0) Estimated GFR (Cockcroft-Gault) 54.2 BUN/Creatinine Ratio 43 (6-20) Glucose Level 166 mg/dL (70-99) Calcium Level 8.5 mg/dL (8.5-10.1) Total Bilirubin 0.4 mg/dL (0.2-1.0) Aspartate Amino Transf (AST/SGOT) 36 U/L (15-37) Alanine Aminotransferase (ALT/SGPT) 57 U/L (14-59) Alkaline Phosphatase 81 U/L (46-116) Total Protein 5.6 g/dL (6.4-8.2) Albumin 2.2 g/dL (3.4-5.0) Albumin/Globulin Ratio 0.6 (1.0-1.7) Test 09/27/20 12:41 09/27/20 18:45 09/28/20 00:18 09/28/20 05:58 Glucose (Fingerstick) 179 mg/dL (70-99) 113 mg/dL (70-99) 143 mg/dL (70-99) 167 mg/dL (70-99) Test 09/28/20 08:50 09/28/20 09:30 White Blood Count 19.1 x10^3/uL (4.0-11.0) Red Blood Count 5.83 x10^6/uL (3.50-5.40) Hemoglobin 13.0 g/dL (12.0-15.5) Hematocrit 42.8 % (36.0-47.0) Mean Corpuscular Volume 73 fL (79-100) Mean Corpuscular Hemoglobin 22 pg (25-35) Mean Corpuscular Hemoglobin Concent 31 g/dL (31-37) Red Cell Distribution Width 18.3 % (11.5-14.5) Platelet Count 314 x10^3/uL (140-400) Neutrophils (%) (Auto) 92 % (31-73) Lymphocytes (%) (Auto) 3 % (24-48) Monocytes (%) (Auto) 5 % (0-9) Eosinophils (%) (Auto) 0 % (0-3) Basophils (%) (Auto) 0 % (0-3) Neutrophils # (Auto) 17.5 x10^3/uL (1.8-7.7) Lymphocytes # (Auto) 0.6 x10^3/uL (1.0-4.8) Monocytes # (Auto) 0.9 x10^3/uL (0.0-1.1) Eosinophils # (Auto) 0.0 x10^3/uL (0.0-0.7) Basophils # (Auto) 0.0 x10^3/uL (0.0-0.2) Sodium Level 151 mmol/L (136-145) Potassium Level 3.4 mmol/L (3.5-5.1) Chloride Level 112 mmol/L (98-107) Carbon Dioxide Level 26 mmol/L (21-32) Anion Gap 13 (6-14) Blood Urea Nitrogen 52 mg/dL (7-20) Creatinine 1.2 mg/dL (0.6-1.0) Estimated GFR (Cockcroft-Gault) 54.2 Glucose Level 142 mg/dL (70-99) Calcium Level 8.5 mg/dL (8.5-10.1) Magnesium Level 2.4 mg/dL (1.8-2.4) O2 Saturation 84 % (92-99) Arterial Blood pH 7.47 (7.35-7.45) Arterial Blood pCO2 at Patient Temp 33 mmHg (35-46) Arterial Blood pO2 at Patient Temp 49 mmHg (65-108) Arterial Blood pO2 (Temp corrected) mmHg Arterial Blood HCO3 23 mmol/L (21-28) Arterial Blood Base Excess 0 mmol/L (-3-3) FiO2 100 Laboratory Tests Test 09/27/20 12:41 09/27/20 18:45 09/28/20 00:18 09/28/20 05:58 Glucose (Fingerstick) 179 mg/dL (70-99) 113 mg/dL (70-99) 143 mg/dL (70-99) 167 mg/dL (70-99) Test 09/28/20 08:50 09/28/20 09:30 White Blood Count 19.1 x10^3/uL (4.0-11.0) Red Blood Count 5.83 x10^6/uL (3.50-5.40) Hemoglobin 13.0 g/dL (12.0-15.5) Hematocrit 42.8 % (36.0-47.0) Mean Corpuscular Volume 73 fL (79-100) Mean Corpuscular Hemoglobin 22 pg (25-35) Mean Corpuscular Hemoglobin Concent 31 g/dL (31-37) Red Cell Distribution Width 18.3 % (11.5-14.5) Platelet Count 314 x10^3/uL (140-400) Neutrophils (%) (Auto) 92 % (31-73) Lymphocytes (%) (Auto) 3 % (24-48) Monocytes (%) (Auto) 5 % (0-9) Eosinophils (%) (Auto) 0 % (0-3) Basophils (%) (Auto) 0 % (0-3) Neutrophils # (Auto) 17.5 x10^3/uL (1.8-7.7) Lymphocytes # (Auto) 0.6 x10^3/uL (1.0-4.8) Monocytes # (Auto) 0.9 x10^3/uL (0.0-1.1) Eosinophils # (Auto) 0.0 x10^3/uL (0.0-0.7) Basophils # (Auto) 0.0 x10^3/uL (0.0-0.2) Sodium Level 151 mmol/L (136-145) Potassium Level 3.4 mmol/L (3.5-5.1) Chloride Level 112 mmol/L (98-107) Carbon Dioxide Level 26 mmol/L (21-32) Anion Gap 13 (6-14) Blood Urea Nitrogen 52 mg/dL (7-20) Creatinine 1.2 mg/dL (0.6-1.0) Estimated GFR (Cockcroft-Gault) 54.2 Glucose Level 142 mg/dL (70-99) Calcium Level 8.5 mg/dL (8.5-10.1) Magnesium Level 2.4 mg/dL (1.8-2.4) O2 Saturation 84 % (92-99) Arterial Blood pH 7.47 (7.35-7.45) Arterial Blood pCO2 at Patient Temp 33 mmHg (35-46) Arterial Blood pO2 at Patient Temp 49 mmHg (65-108) Arterial Blood pO2 (Temp corrected) mmHg Arterial Blood HCO3 23 mmol/L (21-28) Arterial Blood Base Excess 0 mmol/L (-3-3) FiO2 100 Medications Active Scripts Medications Dose Route/Sig Max Daily Dose Days Date Category Metolazone 5 Mg Tablet 5 Mg PO QODAY 09/17/20 Reported Imuran (Azathioprine) 50 Mg Tablet 1 Tab PO DAILY 30 09/17/20 Reported Albuterol Sulfate Neb Soln (Albuterol Sulfate) 2.5 Mg/3 Ml Vial.neb 1 Vial NEB PRN Q4HRS 09/17/20 Reported Carvedilol (Carvedilol) 12.5 Mg Tablet 12.5 Mg PO BIDWMEALS 09/17/20 Reported Melatonin 5 Mg Capsule 3 Mg PO HS 09/17/20 Reported Duoneb 0.5-3(2.5) Mg/3 Ml (Albuterol/Ipratropium) 3 Ml Ampul.neb 3 Ml NEB QID 09/17/20 Reported Klor-Con 10 (Potassium Chloride) 10 Meq Tablet.er 1 Tab PO DAILY 30 09/17/20 Reported Eliquis (Apixaban) 5 Mg Tablet 5 Mg PO BID 09/17/20 Reported Torsemide 20 Mg Tablet 1 Tab PO BID 09/17/20 Reported Metformin Hcl 1,000 Mg Tablet 1,000 Mg PO BIDWMEALS 09/17/20 Reported Oxycodone HCl 5 Mg Tablet 10 Mg PO PRN Q6HRS PRN 09/17/20 Reported Ambien (Zolpidem Tartrate) 5 Mg Tablet 5 Mg PO PRN QHS PRN 09/17/20 Reported Levothyroxine Sodium 125 Mcg Tablet 1 Tab PO DAILY 09/17/20 Reported Gabapentin (Gabapentin) 300 Mg Capsule 300 Mg PO BID 09/17/20 Reported Lantus Solostar (Insulin Glargine,Hum.rec.anlog) 100 Unit/1 Ml Insuln.pen 20 Unit SQ QHS 09/17/20 Reported Insulin Lispro 100 Unit/1 Ml Vial 10 Unit SQ TID 09/17/20 Reported Comments CXR 09/26 ET tube is at the thoracic inlet, approximately 7 cm above the ilene. Enteric tube is partially visualized although the distal extent is not seen given obscuration by overlying leads. Moderate cardiomegaly, stable. Bilateral parenchymal opacities are also grossly stable. Small left pleural effusion. No right pleural effusion. No pneumothorax. Electronically signed by: Kevin Douglas MD (09/26/2020 7:05 AM) [facility] Impression . IMPRESSION: 1. 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 Abnormal x-ray. 3. Acute on chronic kidney injury..(Azotemia) 4. Chronic rt heart failure. 5. ? bacterial pneumonia.no positive cultures 6. COVID-19-- negative X2 7. Metabolic toxic encephalopathy. 8. Elevated liver chemistries. 9. Moderate protein malnutrition, present upon admission. Plan . PLAN: Pt on PC/MARVIN , Fi02 100% and PEEP OF 13 , no sig improvement. Will increase PC to 30 , already on full dose Anti-coagulation for PE, . .Pt has h/o Sarcoidosis/ ILD, IV solumedrol started for?ILD flare up.repeated COVID neg, Echo with bubble study with no shunt Follow chest x-ray and ABG, Continue empiric antibiotics, off vancomycin , added Zosyn 09/23 off heparin drip , on Eliquis for now Patient has a history of pulmonary embolism bilateral lower extremity Dopplers were negative Monitor renal function COVID-19 negative Follow cardiology recommendations DVT/GI prophylaxis prognosis poor despite aggressive care. d/w sister in detail 09/27 . Prognosis extremely poor. Rec DNR. SHE WILL TALK TO FAMILY [facility] declined ECHMO., no ECHMO beds at [facility] ECMO will only be a bridge for lung transplant for which she is a unlikely candidate. She can never even survive a transfer to any facility cct 30 min D/W RN and RT ANDRIY LEONE MD Sep 28, 2020 11:27
[2020-09-28] MEDS: ASPIRIN CHEWABLE 81 MG TABLET. PO SCH (13:09)
[2020-09-28] MEDS: FAMOTIDINE 20 MG/2 ML VIAL IVP SCH ×2 (13:09→20:40)
[2020-09-28] MEDS: APIXABAN 5 MG TABLET. PO SCH ×2 (13:10→20:41)
[2020-09-28] MEDS: MIDAZOLAM 100mg/100ml NS BAG 100 ML IV PRN ×2 (13:11→16:34)
[2020-09-28] MEDS: NYSTATIN TOPICAL POWDER 15GM BOTTLE. TP SCH ×2 (16:09→20:41)
--- NOTE | 2020-09-28 21:00 | RAD ---
XR CHEST 1V History: Reason: PICC line placement / Spl. Instructions: / History: Comparison: September 26, 2020 Findings: Interval placement right PICC with tip projecting over the cavoatrial junction. Decreased patchy biba silar opacities. Small left pleural effusion, unchanged. Unchanged heart size. No pneumothorax. Endotracheal tube tip not well seen due to technique. Enteric tube with tip below the diaphragm beyon d the image. Impression: 1. Interval placement right PICC. 2. Decreased patchy bibasilar opacities. 3. Small left pleural effusion, unchanged. 4. Endotracheal tube tip not well seen due to technique. If persistent clinical concern, recommend r epeat imaging. Electronically signed by: Vance Lemus DO (09/28/2020 8:58 PM) [facility]
[2020-09-29] VITALS (24 sets, daily range): BP systolic 105–162; BP diastolic 56–81
[2020-09-29] MEDS: MIDAZOLAM 100mg/100ml NS BAG 100 ML IV PRN ×2 (05:05→15:16)
[2020-09-29] MEDS: INSULIN LISPRO 300 UNITS/3 ML VIAL. SQ SCH ×8 (06:08→23:56)
[2020-09-29] MEDS: PIPERACILLIN/TAZOBACTAM 3.375 GM in IV NORMAL SALINE 50ML 50 ML IV SCH ×4 (06:08→23:56)
[2020-09-29] MEDS: methylPREDNISolone SOD SUCC PF 40 MG/ML VIAL. IV SCH ×3 (06:12→22:00)
[2020-09-29 06:17] LABS: BASO % 0 % (0-3); EOS % 0 % (0-3); HEMATOCRIT 38.8 % (36.0-47.0); HEMOGLOBIN 12.2 g/dL (12.0-15.5); LYMPH # 0.6 x10^3/uL (1.0-4.8); LYMPH % 3 % (24-48); MEAN CORPUSCULAR HEMOGLOBIN 23 pg (25-35); MEAN CORPUSCULAR HGB CONC 31 g/dL (31-37); MEAN CORPUSCULAR VOLUME 73 fL (79-100); MONO # 0.9 x10^3/uL (0.0-1.1); MONO % 6 % (0-9); NEUT # 15.8 x10^3/uL (1.8-7.7); NEUT % 91 % (31-73); PLATELET COUNT 287 x10^3/uL (140-400); RED BLOOD COUNT 5.34 x10^6/uL (3.50-5.40); RED CELL DISTRIBUTION WIDTH 18.1 % (11.5-14.5); WHITE BLOOD COUNT 17.4 x10^3/uL (4.0-11.0)
[2020-09-29 06:38] LABS: CALCIUM 8.5 mg/dL (8.5-10.1); CREATININE 1.3 mg/dL (0.6-1.0); GFR 49.4; POTASSIUM 4.7 mmol/L (3.5-5.1)
[2020-09-29 07:54] LABS: BASE EXCESS ABG 2 mmol/L (-3-3); HCO3 ABG 23 mmol/L (21-28); PCO2 ABG 26 mmHg (35-46); PO2 ABG 55 mmHg (65-108); SAT O2 ABG 90 % (92-99)
[2020-09-29] MEDS: CARVEDILOL 12.5 MG TABLET. PO SCH ×2 (08:00→17:36)
--- NOTE | 2020-09-29 08:19 | PDOC ---
PULMONARY PROGRESS NOTES DATE: 09/29/20 TIME: 08:19 Subjective Patient remains on vent support, Pressure Control/Assist Control 100% and PEEP 13 Vitals Vital Signs Date Time Temp Pulse Resp B/P (MAP) Pulse Ox O2 Delivery O2 Flow Rate FiO2 09/29/20 07:40 90 Ventilator 09/29/20 07:00 48 20 108/63 (78) 09/29/20 04:00 98.7 98.7 09/28/20 17:02 84.0 Comments Intubated/sedated Lungs: Clear Cardiovascular: S1 Abdomen: Soft Extremities: No Edema Skin: Warm Labs Laboratory Tests Test 09/27/20 08:30 09/27/20 12:41 09/27/20 18:45 09/28/20 00:18 White Blood Count 17.1 x10^3/uL (4.0-11.0) Red Blood Count 5.64 x10^6/uL (3.50-5.40) Hemoglobin 12.6 g/dL (12.0-15.5) Hematocrit 41.0 % (36.0-47.0) Mean Corpuscular Volume 73 fL (79-100) Mean Corpuscular Hemoglobin 22 pg (25-35) Mean Corpuscular Hemoglobin Concent 31 g/dL (31-37) Red Cell Distribution Width 18.0 % (11.5-14.5) Platelet Count 345 x10^3/uL (140-400) Sodium Level 151 mmol/L (136-145) Potassium Level 4.1 mmol/L (3.5-5.1) Chloride Level 113 mmol/L (98-107) Carbon Dioxide Level 25 mmol/L (21-32) Anion Gap 13 (6-14) Blood Urea Nitrogen 52 mg/dL (7-20) Creatinine 1.2 mg/dL (0.6-1.0) Estimated GFR (Cockcroft-Gault) 54.2 BUN/Creatinine Ratio 43 (6-20) Glucose Level 166 mg/dL (70-99) Calcium Level 8.5 mg/dL (8.5-10.1) Total Bilirubin 0.4 mg/dL (0.2-1.0) Aspartate Amino Transf (AST/SGOT) 36 U/L (15-37) Alanine Aminotransferase (ALT/SGPT) 57 U/L (14-59) Alkaline Phosphatase 81 U/L (46-116) Total Protein 5.6 g/dL (6.4-8.2) Albumin 2.2 g/dL (3.4-5.0) Albumin/Globulin Ratio 0.6 (1.0-1.7) Glucose (Fingerstick) 179 mg/dL (70-99) 113 mg/dL (70-99) 143 mg/dL (70-99) Test 09/28/20 05:58 09/28/20 08:50 09/28/20 09:30 09/28/20 13:42 Glucose (Fingerstick) 167 mg/dL (70-99) 136 mg/dL (70-99) White Blood Count 19.1 x10^3/uL (4.0-11.0) Red Blood Count 5.83 x10^6/uL (3.50-5.40) Hemoglobin 13.0 g/dL (12.0-15.5) Hematocrit 42.8 % (36.0-47.0) Mean Corpuscular Volume 73 fL (79-100) Mean Corpuscular Hemoglobin 22 pg (25-35) Mean Corpuscular Hemoglobin Concent 31 g/dL (31-37) Red Cell Distribution Width 18.3 % (11.5-14.5) Platelet Count 314 x10^3/uL (140-400) Neutrophils (%) (Auto) 92 % (31-73) Lymphocytes (%) (Auto) 3 % (24-48) Monocytes (%) (Auto) 5 % (0-9) Eosinophils (%) (Auto) 0 % (0-3) Basophils (%) (Auto) 0 % (0-3) Neutrophils # (Auto) 17.5 x10^3/uL (1.8-7.7) Lymphocytes # (Auto) 0.6 x10^3/uL (1.0-4.8) Monocytes # (Auto) 0.9 x10^3/uL (0.0-1.1) Eosinophils # (Auto) 0.0 x10^3/uL (0.0-0.7) Basophils # (Auto) 0.0 x10^3/uL (0.0-0.2) Sodium Level 151 mmol/L (136-145) Potassium Level 3.4 mmol/L (3.5-5.1) Chloride Level 112 mmol/L (98-107) Carbon Dioxide Level 26 mmol/L (21-32) Anion Gap 13 (6-14) Blood Urea Nitrogen 52 mg/dL (7-20) Creatinine 1.2 mg/dL (0.6-1.0) Estimated GFR (Cockcroft-Gault) 54.2 Glucose Level 142 mg/dL (70-99) Calcium Level 8.5 mg/dL (8.5-10.1) Magnesium Level 2.4 mg/dL (1.8-2.4) O2 Saturation 84 % (92-99) Arterial Blood pH 7.47 (7.35-7.45) Arterial Blood pCO2 at Patient Temp 33 mmHg (35-46) Arterial Blood pO2 at Patient Temp 49 mmHg (65-108) Arterial Blood pO2 (Temp corrected) mmHg Arterial Blood HCO3 23 mmol/L (21-28) Arterial Blood Base Excess 0 mmol/L (-3-3) FiO2 100 Test 09/28/20 18:37 09/28/20 20:27 09/28/20 23:34 09/29/20 05:45 Glucose (Fingerstick) 206 mg/dL (70-99) 231 mg/dL (70-99) 207 mg/dL (70-99) White Blood Count 17.4 x10^3/uL (4.0-11.0) Red Blood Count 5.34 x10^6/uL (3.50-5.40) Hemoglobin 12.2 g/dL (12.0-15.5) Hematocrit 38.8 % (36.0-47.0) Mean Corpuscular Volume 73 fL (79-100) Mean Corpuscular Hemoglobin 23 pg (25-35) Mean Corpuscular Hemoglobin Concent 31 g/dL (31-37) Red Cell Distribution Width 18.1 % (11.5-14.5) Platelet Count 287 x10^3/uL (140-400) Neutrophils (%) (Auto) 91 % (31-73) Lymphocytes (%) (Auto) 3 % (24-48) Monocytes (%) (Auto) 6 % (0-9) Eosinophils (%) (Auto) 0 % (0-3) Basophils (%) (Auto) 0 % (0-3) Neutrophils # (Auto) 15.8 x10^3/uL (1.8-7.7) Lymphocytes # (Auto) 0.6 x10^3/uL (1.0-4.8) Monocytes # (Auto) 0.9 x10^3/uL (0.0-1.1) Eosinophils # (Auto) 0.0 x10^3/uL (0.0-0.7) Basophils # (Auto) 0.0 x10^3/uL (0.0-0.2) Sodium Level 150 mmol/L (136-145) Potassium Level 4.7 mmol/L (3.5-5.1) Chloride Level 113 mmol/L (98-107) Carbon Dioxide Level 26 mmol/L (21-32) Anion Gap 11 (6-14) Blood Urea Nitrogen 59 mg/dL (7-20) Creatinine 1.3 mg/dL (0.6-1.0) Estimated GFR (Cockcroft-Gault) 49.4 Glucose Level 176 mg/dL (70-99) Calcium Level 8.5 mg/dL (8.5-10.1) Test 09/29/20 06:02 Glucose (Fingerstick) 181 mg/dL (70-99) Laboratory Tests Test 09/28/20 08:50 09/28/20 09:30 09/28/20 13:42 09/28/20 18:37 White Blood Count 19.1 x10^3/uL (4.0-11.0) Red Blood Count 5.83 x10^6/uL (3.50-5.40) Hemoglobin 13.0 g/dL (12.0-15.5) Hematocrit 42.8 % (36.0-47.0) Mean Corpuscular Volume 73 fL (79-100) Mean Corpuscular Hemoglobin 22 pg (25-35) Mean Corpuscular Hemoglobin Concent 31 g/dL (31-37) Red Cell Distribution Width 18.3 % (11.5-14.5) Platelet Count 314 x10^3/uL (140-400) Neutrophils (%) (Auto) 92 % (31-73) Lymphocytes (%) (Auto) 3 % (24-48) Monocytes (%) (Auto) 5 % (0-9) Eosinophils (%) (Auto) 0 % (0-3) Basophils (%) (Auto) 0 % (0-3) Neutrophils # (Auto) 17.5 x10^3/uL (1.8-7.7) Lymphocytes # (Auto) 0.6 x10^3/uL (1.0-4.8) Monocytes # (Auto) 0.9 x10^3/uL (0.0-1.1) Eosinophils # (Auto) 0.0 x10^3/uL (0.0-0.7) Basophils # (Auto) 0.0 x10^3/uL (0.0-0.2) Sodium Level 151 mmol/L (136-145) Potassium Level 3.4 mmol/L (3.5-5.1) Chloride Level 112 mmol/L (98-107) Carbon Dioxide Level 26 mmol/L (21-32) Anion Gap 13 (6-14) Blood Urea Nitrogen 52 mg/dL (7-20) Creatinine 1.2 mg/dL (0.6-1.0) Estimated GFR (Cockcroft-Gault) 54.2 Glucose Level 142 mg/dL (70-99) Calcium Level 8.5 mg/dL (8.5-10.1) Magnesium Level 2.4 mg/dL (1.8-2.4) O2 Saturation 84 % (92-99) Arterial Blood pH 7.47 (7.35-7.45) Arterial Blood pCO2 at Patient Temp 33 mmHg (35-46) Arterial Blood pO2 at Patient Temp 49 mmHg (65-108) Arterial Blood pO2 (Temp corrected) mmHg Arterial Blood HCO3 23 mmol/L (21-28) Arterial Blood Base Excess 0 mmol/L (-3-3) FiO2 100 Glucose (Fingerstick) 136 mg/dL (70-99) 206 mg/dL (70-99) Test 09/28/20 20:27 09/28/20 23:34 09/29/20 05:45 09/29/20 06:02 Glucose (Fingerstick) 231 mg/dL (70-99) 207 mg/dL (70-99) 181 mg/dL (70-99) White Blood Count 17.4 x10^3/uL (4.0-11.0) Red Blood Count 5.34 x10^6/uL (3.50-5.40) Hemoglobin 12.2 g/dL (12.0-15.5) Hematocrit 38.8 % (36.0-47.0) Mean Corpuscular Volume 73 fL (79-100) Mean Corpuscular Hemoglobin 23 pg (25-35) Mean Corpuscular Hemoglobin Concent 31 g/dL (31-37) Red Cell Distribution Width 18.1 % (11.5-14.5) Platelet Count 287 x10^3/uL (140-400) Neutrophils (%) (Auto) 91 % (31-73) Lymphocytes (%) (Auto) 3 % (24-48) Monocytes (%) (Auto) 6 % (0-9) Eosinophils (%) (Auto) 0 % (0-3) Basophils (%) (Auto) 0 % (0-3) Neutrophils # (Auto) 15.8 x10^3/uL (1.8-7.7) Lymphocytes # (Auto) 0.6 x10^3/uL (1.0-4.8) Monocytes # (Auto) 0.9 x10^3/uL (0.0-1.1) Eosinophils # (Auto) 0.0 x10^3/uL (0.0-0.7) Basophils # (Auto) 0.0 x10^3/uL (0.0-0.2) Sodium Level 150 mmol/L (136-145) Potassium Level 4.7 mmol/L (3.5-5.1) Chloride Level 113 mmol/L (98-107) Carbon Dioxide Level 26 mmol/L (21-32) Anion Gap 11 (6-14) Blood Urea Nitrogen 59 mg/dL (7-20) Creatinine 1.3 mg/dL (0.6-1.0) Estimated GFR (Cockcroft-Gault) 49.4 Glucose Level 176 mg/dL (70-99) Calcium Level 8.5 mg/dL (8.5-10.1) Medications Active Scripts Medications Dose Route/Sig Max Daily Dose Days Date Category Metolazone 5 Mg Tablet 5 Mg PO QODAY 09/17/20 Reported Imuran (Azathioprine) 50 Mg Tablet 1 Tab PO DAILY 30 09/17/20 Reported Albuterol Sulfate Neb Soln (Albuterol Sulfate) 2.5 Mg/3 Ml Vial.neb 1 Vial NEB PRN Q4HRS 09/17/20 Reported Carvedilol (Carvedilol) 12.5 Mg Tablet 12.5 Mg PO BIDWMEALS 09/17/20 Reported Melatonin 5 Mg Capsule 3 Mg PO HS 09/17/20 Reported Duoneb 0.5-3(2.5) Mg/3 Ml (Albuterol/Ipratropium) 3 Ml Ampul.neb 3 Ml NEB QID 09/17/20 Reported Klor-Con 10 (Potassium Chloride) 10 Meq Tablet.er 1 Tab PO DAILY 30 09/17/20 Reported Eliquis (Apixaban) 5 Mg Tablet 5 Mg PO BID 09/17/20 Reported Torsemide 20 Mg Tablet 1 Tab PO BID 09/17/20 Reported Metformin Hcl 1,000 Mg Tablet 1,000 Mg PO BIDWMEALS 09/17/20 Reported Oxycodone HCl 5 Mg Tablet 10 Mg PO PRN Q6HRS PRN 09/17/20 Reported Ambien (Zolpidem Tartrate) 5 Mg Tablet 5 Mg PO PRN QHS PRN 09/17/20 Reported Levothyroxine Sodium 125 Mcg Tablet 1 Tab PO DAILY 09/17/20 Reported Gabapentin (Gabapentin) 300 Mg Capsule 300 Mg PO BID 09/17/20 Reported Lantus Solostar (Insulin Glargine,Hum.rec.anlog) 100 Unit/1 Ml Insuln.pen 20 Unit SQ QHS 09/17/20 Reported Insulin Lispro 100 Unit/1 Ml Vial 10 Unit SQ TID 09/17/20 Reported Comments CXR Impression: 1. Interval placement right PICC. 2. Decreased patchy bibasilar opacities. 3. Small left pleural effusion, unchanged. 4. Endotracheal tube tip not well seen due to technique. If persistent clinical concern, recommend repeat imaging. Impression . IMPRESSION: 1. 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 Abnormal x-ray. 3. Acute on chronic kidney injury..(Azotemia) 4. Chronic rt heart failure. 5. ? bacterial pneumonia.no positive cultures 6. COVID-19-- negative X2 7. Metabolic toxic encephalopathy. 8. Elevated liver chemistries. 9. Moderate protein malnutrition, present upon admission. Plan . PLAN: Continue Vent Support A/C and Pressure Control -- 20/30/100% and PEEP 13 Follow CXR/ABG -- reduce PC to 20 and PEEP to 10 Continue Eliquis for Full dose Anti-coagulation for PE Pt has h/o Sarcoidosis/ ILD, IV solumedrol started for?ILD flare up.repeated COVID neg, Echo with bubble study with no shunt Continue empiric antibiotics, Zosyn 09/23 Monitor renal function COVID-19 negative Follow cardiology recommendations DVT/GI prophylaxis D/W RN and RT Critical Care time [id number] Pt. is FULL CODE Multiple discussions with Sister SUMMER pallavi [facility] no [facility] beds at [facility] RADHA UNGER MD Sep 29, 2020 08:19
[2020-09-29 08:48] LABS: FIO2 ABG 100%
[2020-09-29] MEDS: ASPIRIN CHEWABLE 81 MG TABLET. PO SCH (08:56)
[2020-09-29] MEDS: ISOSORBIDE DINITRATE 10 MG TABLET. PO SCH ×3 (08:57→20:38)
[2020-09-29] MEDS: FAMOTIDINE 20 MG/2 ML VIAL IVP SCH ×2 (08:57→20:37)
[2020-09-29] MEDS: NYSTATIN TOPICAL POWDER 15GM BOTTLE. TP SCH ×2 (08:58→20:37)
[2020-09-29] MEDS: APIXABAN 5 MG TABLET. PO SCH ×2 (09:01→20:37)
[2020-09-29] MEDS: INSULIN GLARGINE SYRINGE. SQ SCH ×2 (09:02→20:42)
[2020-09-29 09:58] LABS: % LYMPHS 3 % (24-48); % MONOS 2 % (0-10); % SEGS 95 % (35-66)
[2020-09-29 09:59] LABS: PLT ESTIMATE ADEQUATE (ADEQUATE)
--- NOTE | 2020-09-29 12:46 | PN ---
DATE: 09/29/2020 SUBJECTIVE: The patient continued to be sedated, intubated and mechanically ventilated. Her blood gases showed some improvement as her pO2 is now 55. Her respiratory rate has cut down. She is hyperventilating and pH is high at 7.56 and her oxygen saturation is 90%. Her blood gases are 96% on the pulse oximeter. PHYSICAL EXAMINATION: GENERAL: When I examined her, she was pale, but no jaundice, cyanosis or thyromegaly. No jugular venous distention. No limb edema. VITAL SIGNS: Her heart rate was 46, blood pressure was 133/63, temperature was 98.4, respiratory rate 20, and oxygen saturation was 93% on FiO2 of 100%. HEAD, EYES, EARS, NOSE and THROAT: Showed normocephalic, atraumatic. NECK: Supple. HEART: Normal first and second heart sounds. No gallop or murmur. CHEST: Clear to auscultation. No crepitation or rhonchi. ABDOMEN: Markedly distended, soft, nontender. NEUROLOGIC: She is heavily sedated. Her intake over the last 24 hours was 2100, output was 1800. LABORATORY DATA: Her lab work as of this morning showed a pH of 7.56, pCO2 of 26, pO2 of 55, bicarbonate 23 and oxygen saturation was 90% on FiO2 of 100%. Her white cell count was 17,400, hemoglobin 12, hematocrit 38, MCV 73 and platelet count 287,000. Her chemistry showed a serum sodium 150, potassium 4.7, chloride 113, bicarbonate 26, anion gap of 11, BUN 59, creatinine 1.3. Estimated GFR was 49 mL per minute. Her glucose 176 and calcium was 8.5. ASSESSMENT: 1. Acute on chronic hypoxic hypercapnic respiratory failure, requiring intubation and mechanical ventilation. The patient continues to be hypoxic despite being on FiO2 of 100%. She had an echocardiogram that showed no evidence of atrial septal defect or persistent foramen ovale. 2. Community acquired pneumonia, for which she is on IV antibiotic. 3. Acute on chronic diastolic congestive heart failure, seems to be clinically well compensated. 4. Acute kidney injury, improved; however, her creatinine is trending upward now. Her most recent serum creatinine is 1.3. 5. COVID-19 tested negative twice. 6. Morbid obesity and obstructive sleep apnea. 7. Elevated troponin, felt to be due to demand ischemia. 8. The patient has apparently been admitted before to [facility] and was on ECMO for severe hypoxemia. At home, she is on 12 liters of oxygen at rest and on 15 liters on exertion. 9. The patient has multiple other medical problems including: A. Hypertension. B. Type 2 diabetes mellitus, seems to be reasonably controlled. C. 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 D. Chronic obstructive pulmonary disease. E. History of pulmonary embolism. PLAN: 1. To continue mechanical ventilation. 2. Continue IV antibiotic. 3. Continue with IV steroids. 4. Continue with apixaban for DVT and PE treatment. 5. Continue to monitor her blood sugar and adjust insulin as needed. Her overall prognosis remains poor. DARION MANCINI MD DR: NICHOLAS/emmett JOB#: [id number] / [id number]
[2020-09-29] MEDS: fentaNYL HIGH DOSE PCA 55 ML IV PRN (15:17)
--- NOTE | 2020-09-29 15:57 | NUR ---
SS following up with discharge planning. SS reviewed pt chart and discussed with pt RN. Pt is currently on the vent at 100%. COVID19 negative. Pt on IV Zosyn. Not stable. Dr. Petersen discussing goals of care with family. SS will continue to follow for discharge planning.
[2020-09-30] VITALS (24 sets, daily range): BP systolic 109–171; BP diastolic 58–117
[2020-09-30] MEDS: MIDAZOLAM 100mg/100ml NS BAG 100 ML IV PRN ×2 (03:04→13:39)
--- NOTE | 2020-09-30 05:22 | RAD ---
EXAM: AP View of the chest DATE: 09/30/2020 3:26 AM INDICATION: Reason: resp. failure 104 / Spl. Instructions: / History: COMPARISON: 09/28/2020 09/26/2020 FINDINGS: Mild cardiomegaly. Bilateral parenchymal airspace opacities are seen. Small bilateral pleural effusio ns. No pneumothorax. ET tube tip terminates proximal 4 cm above the ilene. Enteric tube extends beyond the diaphragm tip is not visualized. Right upper extremity PICC tip projects over the distal SVC. IMPRESSION: 1. Support lines and tubes as above. 2. Bilateral parenchymal airspace opacities, new/progressed compared to 09/28/2020 likely multifocal consolidative process. Electronically signed by: Kevin Douglas MD (09/30/2020 5:20 AM) JAMIL
[2020-09-30] MEDS: INSULIN LISPRO 300 UNITS/3 ML VIAL. SQ SCH ×8 (05:38→23:56)
[2020-09-30] MEDS: methylPREDNISolone SOD SUCC PF 40 MG/ML VIAL. IV SCH ×3 (05:40→22:05)
[2020-09-30] MEDS: PIPERACILLIN/TAZOBACTAM 3.375 GM in IV NORMAL SALINE 50ML 50 ML IV SCH ×4 (05:41→23:55)
[2020-09-30 06:32] LABS: CALCIUM 8.7 mg/dL (8.5-10.1); CREATININE 1.1 mg/dL (0.6-1.0); GFR 59.9; POTASSIUM 4.1 mmol/L (3.5-5.1)
[2020-09-30 06:56] LABS: BASO # 0.1 x10^3/uL (0.0-0.2); BASO % 0 % (0-3); EOS % 0 % (0-3); HEMATOCRIT 40.6 % (36.0-47.0); LYMPH % 5 % (24-48); MEAN CORPUSCULAR HEMOGLOBIN 22 pg (25-35); MEAN CORPUSCULAR HGB CONC 30 g/dL (31-37); MEAN CORPUSCULAR VOLUME 74 fL (79-100); MONO # 1.1 x10^3/uL (0.0-1.1); MONO % 5 % (0-9); NEUT # 18.1 x10^3/uL (1.8-7.7); NEUT % 89 % (31-73); PLATELET COUNT 258 x10^3/uL (140-400); RED BLOOD COUNT 5.46 x10^6/uL (3.50-5.40); RED CELL DISTRIBUTION WIDTH 18.9 % (11.5-14.5); WHITE BLOOD COUNT 20.3 x10^3/uL (4.0-11.0)
[2020-09-30 07:42] LABS: BASE EXCESS ABG 0 mmol/L (-3-3); HCO3 ABG 26 mmol/L (21-28); PCO2 ABG 50 mmHg (35-46); SAT O2 ABG 81 % (92-99)
[2020-09-30] MEDS: APIXABAN 5 MG TABLET. PO SCH ×2 (08:36→21:25)
[2020-09-30] MEDS: ASPIRIN CHEWABLE 81 MG TABLET. PO SCH (08:36)
[2020-09-30] MEDS: CARVEDILOL 12.5 MG TABLET. PO SCH ×2 (08:37→18:06)
[2020-09-30] MEDS: FAMOTIDINE 20 MG/2 ML VIAL IVP SCH ×2 (08:38→21:25)
[2020-09-30] MEDS: ISOSORBIDE DINITRATE 10 MG TABLET. PO SCH ×3 (08:39→21:25)
--- NOTE | 2020-09-30 08:40 | PDOC ---
PULMONARY PROGRESS NOTES DATE: 09/30/20 TIME: 08:40 Subjective Patient remains on vent support, Pressure Control/Assist Control 100% and PEEP 10 Vitals Vital Signs Date Time Temp Pulse Resp B/P (MAP) Pulse Ox O2 Delivery O2 Flow Rate FiO2 09/30/20 08:38 79 159/79 09/30/20 07:29 83 Ventilator 09/30/20 06:00 20 09/30/20 04:00 98.4 98.4 Comments Intubated/sedated Lungs: Clear Cardiovascular: S1 Abdomen: Soft Extremities: No Edema Skin: Warm Labs Laboratory Tests Test 09/28/20 08:50 09/28/20 09:30 09/28/20 13:42 09/28/20 18:37 White Blood Count 19.1 x10^3/uL (4.0-11.0) Red Blood Count 5.83 x10^6/uL (3.50-5.40) Hemoglobin 13.0 g/dL (12.0-15.5) Hematocrit 42.8 % (36.0-47.0) Mean Corpuscular Volume 73 fL (79-100) Mean Corpuscular Hemoglobin 22 pg (25-35) Mean Corpuscular Hemoglobin Concent 31 g/dL (31-37) Red Cell Distribution Width 18.3 % (11.5-14.5) Platelet Count 314 x10^3/uL (140-400) Neutrophils (%) (Auto) 92 % (31-73) Lymphocytes (%) (Auto) 3 % (24-48) Monocytes (%) (Auto) 5 % (0-9) Eosinophils (%) (Auto) 0 % (0-3) Basophils (%) (Auto) 0 % (0-3) Neutrophils # (Auto) 17.5 x10^3/uL (1.8-7.7) Lymphocytes # (Auto) 0.6 x10^3/uL (1.0-4.8) Monocytes # (Auto) 0.9 x10^3/uL (0.0-1.1) Eosinophils # (Auto) 0.0 x10^3/uL (0.0-0.7) Basophils # (Auto) 0.0 x10^3/uL (0.0-0.2) Sodium Level 151 mmol/L (136-145) Potassium Level 3.4 mmol/L (3.5-5.1) Chloride Level 112 mmol/L (98-107) Carbon Dioxide Level 26 mmol/L (21-32) Anion Gap 13 (6-14) Blood Urea Nitrogen 52 mg/dL (7-20) Creatinine 1.2 mg/dL (0.6-1.0) Estimated GFR (Cockcroft-Gault) 54.2 Glucose Level 142 mg/dL (70-99) Calcium Level 8.5 mg/dL (8.5-10.1) Magnesium Level 2.4 mg/dL (1.8-2.4) O2 Saturation 84 % (92-99) Arterial Blood pH 7.47 (7.35-7.45) Arterial Blood pCO2 at Patient Temp 33 mmHg (35-46) Arterial Blood pO2 at Patient Temp 49 mmHg (65-108) Arterial Blood pO2 (Temp corrected) mmHg Arterial Blood HCO3 23 mmol/L (21-28) Arterial Blood Base Excess 0 mmol/L (-3-3) FiO2 100 Glucose (Fingerstick) 136 mg/dL (70-99) 206 mg/dL (70-99) Test 09/28/20 20:27 09/28/20 23:34 09/29/20 05:45 09/29/20 06:02 Glucose (Fingerstick) 231 mg/dL (70-99) 207 mg/dL (70-99) 181 mg/dL (70-99) White Blood Count 17.4 x10^3/uL (4.0-11.0) Red Blood Count 5.34 x10^6/uL (3.50-5.40) Hemoglobin 12.2 g/dL (12.0-15.5) Hematocrit 38.8 % (36.0-47.0) Mean Corpuscular Volume 73 fL (79-100) Mean Corpuscular Hemoglobin 23 pg (25-35) Mean Corpuscular Hemoglobin Concent 31 g/dL (31-37) Red Cell Distribution Width 18.1 % (11.5-14.5) Platelet Count 287 x10^3/uL (140-400) Neutrophils (%) (Auto) 91 % (31-73) Lymphocytes (%) (Auto) 3 % (24-48) Monocytes (%) (Auto) 6 % (0-9) Eosinophils (%) (Auto) 0 % (0-3) Basophils (%) (Auto) 0 % (0-3) Neutrophils # (Auto) 15.8 x10^3/uL (1.8-7.7) Lymphocytes # (Auto) 0.6 x10^3/uL (1.0-4.8) Monocytes # (Auto) 0.9 x10^3/uL (0.0-1.1) Eosinophils # (Auto) 0.0 x10^3/uL (0.0-0.7) Basophils # (Auto) 0.0 x10^3/uL (0.0-0.2) Segmented Neutrophils % 95 % (35-66) Lymphocytes % 3 % (24-48) Monocytes % 2 % (0-10) Platelet Estimate Adequate (ADEQUATE) Sodium Level 150 mmol/L (136-145) Potassium Level 4.7 mmol/L (3.5-5.1) Chloride Level 113 mmol/L (98-107) Carbon Dioxide Level 26 mmol/L (21-32) Anion Gap 11 (6-14) Blood Urea Nitrogen 59 mg/dL (7-20) Creatinine 1.3 mg/dL (0.6-1.0) Estimated GFR (Cockcroft-Gault) 49.4 Glucose Level 176 mg/dL (70-99) Calcium Level 8.5 mg/dL (8.5-10.1) Test 09/29/20 08:00 09/29/20 12:37 09/29/20 17:34 09/29/20 20:42 O2 Saturation 90 % (92-99) Arterial Blood pH 7.56 (7.35-7.45) Arterial Blood pCO2 at Patient Temp 26 mmHg (35-46) Arterial Blood pO2 at Patient Temp 55 mmHg (65-108) Arterial Blood HCO3 23 mmol/L (21-28) Arterial Blood Base Excess 2 mmol/L (-3-3) FiO2 100% Glucose (Fingerstick) 183 mg/dL (70-99) 119 mg/dL (70-99) 90 mg/dL (70-99) Test 09/29/20 23:55 09/30/20 05:30 09/30/20 05:34 Glucose (Fingerstick) 135 mg/dL (70-99) 131 mg/dL (70-99) White Blood Count 20.3 x10^3/uL (4.0-11.0) Red Blood Count 5.46 x10^6/uL (3.50-5.40) Hemoglobin 12.0 g/dL (12.0-15.5) Hematocrit 40.6 % (36.0-47.0) Mean Corpuscular Volume 74 fL (79-100) Mean Corpuscular Hemoglobin 22 pg (25-35) Mean Corpuscular Hemoglobin Concent 30 g/dL (31-37) Red Cell Distribution Width 18.9 % (11.5-14.5) Platelet Count 258 x10^3/uL (140-400) Neutrophils (%) (Auto) 89 % (31-73) Lymphocytes (%) (Auto) 5 % (24-48) Monocytes (%) (Auto) 5 % (0-9) Eosinophils (%) (Auto) 0 % (0-3) Basophils (%) (Auto) 0 % (0-3) Neutrophils # (Auto) 18.1 x10^3/uL (1.8-7.7) Lymphocytes # (Auto) 1.0 x10^3/uL (1.0-4.8) Monocytes # (Auto) 1.1 x10^3/uL (0.0-1.1) Eosinophils # (Auto) 0.0 x10^3/uL (0.0-0.7) Basophils # (Auto) 0.1 x10^3/uL (0.0-0.2) Sodium Level 147 mmol/L (136-145) Potassium Level 4.1 mmol/L (3.5-5.1) Chloride Level 113 mmol/L (98-107) Carbon Dioxide Level 27 mmol/L (21-32) Anion Gap 7 (6-14) Blood Urea Nitrogen 49 mg/dL (7-20) Creatinine 1.1 mg/dL (0.6-1.0) Estimated GFR (Cockcroft-Gault) 59.9 Glucose Level 119 mg/dL (70-99) Calcium Level 8.7 mg/dL (8.5-10.1) Laboratory Tests Test 09/29/20 12:37 09/29/20 17:34 09/29/20 20:42 09/29/20 23:55 Glucose (Fingerstick) 183 mg/dL (70-99) 119 mg/dL (70-99) 90 mg/dL (70-99) 135 mg/dL (70-99) Test 09/30/20 05:30 09/30/20 05:34 White Blood Count 20.3 x10^3/uL (4.0-11.0) Red Blood Count 5.46 x10^6/uL (3.50-5.40) Hemoglobin 12.0 g/dL (12.0-15.5) Hematocrit 40.6 % (36.0-47.0) Mean Corpuscular Volume 74 fL (79-100) Mean Corpuscular Hemoglobin 22 pg (25-35) Mean Corpuscular Hemoglobin Concent 30 g/dL (31-37) Red Cell Distribution Width 18.9 % (11.5-14.5) Platelet Count 258 x10^3/uL (140-400) Neutrophils (%) (Auto) 89 % (31-73) Lymphocytes (%) (Auto) 5 % (24-48) Monocytes (%) (Auto) 5 % (0-9) Eosinophils (%) (Auto) 0 % (0-3) Basophils (%) (Auto) 0 % (0-3) Neutrophils # (Auto) 18.1 x10^3/uL (1.8-7.7) Lymphocytes # (Auto) 1.0 x10^3/uL (1.0-4.8) Monocytes # (Auto) 1.1 x10^3/uL (0.0-1.1) Eosinophils # (Auto) 0.0 x10^3/uL (0.0-0.7) Basophils # (Auto) 0.1 x10^3/uL (0.0-0.2) Sodium Level 147 mmol/L (136-145) Potassium Level 4.1 mmol/L (3.5-5.1) Chloride Level 113 mmol/L (98-107) Carbon Dioxide Level 27 mmol/L (21-32) Anion Gap 7 (6-14) Blood Urea Nitrogen 49 mg/dL (7-20) Creatinine 1.1 mg/dL (0.6-1.0) Estimated GFR (Cockcroft-Gault) 59.9 Glucose Level 119 mg/dL (70-99) Calcium Level 8.7 mg/dL (8.5-10.1) Glucose (Fingerstick) 131 mg/dL (70-99) Medications Active Scripts Medications Dose Route/Sig Max Daily Dose Days Date Category Metolazone 5 Mg Tablet 5 Mg PO QODAY 09/17/20 Reported Imuran (Azathioprine) 50 Mg Tablet 1 Tab PO DAILY 30 09/17/20 Reported Albuterol Sulfate Neb Soln (Albuterol Sulfate) 2.5 Mg/3 Ml Vial.neb 1 Vial NEB PRN Q4HRS 09/17/20 Reported Carvedilol (Carvedilol) 12.5 Mg Tablet 12.5 Mg PO BIDWMEALS 09/17/20 Reported Melatonin 5 Mg Capsule 3 Mg PO HS 09/17/20 Reported Duoneb 0.5-3(2.5) Mg/3 Ml (Albuterol/Ipratropium) 3 Ml Ampul.neb 3 Ml NEB QID 09/17/20 Reported Klor-Con 10 (Potassium Chloride) 10 Meq Tablet.er 1 Tab PO DAILY 30 09/17/20 Reported Eliquis (Apixaban) 5 Mg Tablet 5 Mg PO BID 09/17/20 Reported Torsemide 20 Mg Tablet 1 Tab PO BID 09/17/20 Reported Metformin Hcl 1,000 Mg Tablet 1,000 Mg PO BIDWMEALS 09/17/20 Reported Oxycodone HCl 5 Mg Tablet 10 Mg PO PRN Q6HRS PRN 09/17/20 Reported Ambien (Zolpidem Tartrate) 5 Mg Tablet 5 Mg PO PRN QHS PRN 09/17/20 Reported Levothyroxine Sodium 125 Mcg Tablet 1 Tab PO DAILY 09/17/20 Reported Gabapentin (Gabapentin) 300 Mg Capsule 300 Mg PO BID 09/17/20 Reported Lantus Solostar (Insulin Glargine,Hum.rec.anlog) 100 Unit/1 Ml Insuln.pen 20 Unit SQ QHS 09/17/20 Reported Insulin Lispro 100 Unit/1 Ml Vial 10 Unit SQ TID 09/17/20 Reported Comments CXR IMPRESSION: 1. Support lines and tubes as above. 2. Bilateral parenchymal airspace opacities, new/progressed compared to 09/28/2020 likely multifocal consolidative process. Impression . IMPRESSION: 1. 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 Abnormal x-ray. 3. Acute on chronic kidney injury..(Azotemia) 4. Chronic rt heart failure. 5. ? bacterial pneumonia.no positive cultures 6. COVID-19-- negative X2 7. Metabolic toxic encephalopathy. 8. Elevated liver chemistries. 9. Moderate protein malnutrition, present upon admission. Plan . PLAN: Continue Vent Support A/C and Pressure Control -- 20/20/100% and PEEP 10 Follow CXR/ABG -- rate to 22 and PEEP to 12 Continue Eliquis for Full dose Anti-coagulation for PE Pt has h/o Sarcoidosis/ ILD, continue IV steroids repeated COVID neg, Echo with bubble study with no shunt Continue empiric antibiotics, Zosyn 09/23-- monitor consider ID consult send MRSA PCR Monitor renal function COVID-19 negative Follow cardiology recommendations DVT/GI prophylaxis D/W RN and RT Critical Care time [id number] Pt. is FULL CODE [facility] declined ECHMO., no ECHMO beds at [facility] RADHA UNGER MD Sep 30, 2020 08:40
[2020-09-30] MEDS: NYSTATIN TOPICAL POWDER 15GM BOTTLE. TP SCH ×2 (09:00→21:26)
[2020-09-30] MEDS: INSULIN GLARGINE SYRINGE. SQ SCH ×2 (09:00→21:24)
--- NOTE | 2020-09-30 09:13 | PN ---
DATE: 09/30/2020 SUBJECTIVE: The patient states that she continues to be sedated, intubated and mechanically ventilated. She continues to be on FiO2 of 100% with oxygen saturation of only 83%. Her blood gases are still pending at the time of this dictation. However, her white cell count is up at 20,000 and her chest x-ray showed that she has bilateral parenchymal airspace opacity that has now progressed compared to 09/28/2020, likely multifocal consolidative process. She continues to be on steroids as well as antibiotics. PHYSICAL EXAMINATION: GENERAL: When I examined her, there was no pallor, jaundice, cyanosis or thyromegaly. No jugular venous distention. No lower limb edema. VITAL SIGNS: His heart rate was 58, blood pressure was 111/58, temperature 98.4, respiratory rate 20, and oxygen saturation was 83% on FiO2 of 100%. HEENT: Showed normocephalic, atraumatic. NECK: Supple. HEART: Normal first and second heart sounds. No gallop or murmur. CHEST: Equally reduced expansion, reduced air entry, vesicular sounds. I could not appreciate any crepitation or rhonchi anteriorly. ABDOMEN: Distended, soft, nontender. NEUROLOGIC: She is heavily sedated. Her intake over the last 24 hours was 4440, output was 2400. LABORATORY DATA: As of this morning, her white cell count was 20,300, hemoglobin 12, hematocrit 41, MCV 74 and platelet count 258,000. Her chemistry showed a serum sodium 147, potassium 4.1, chloride 113, bicarbonate 27, anion gap of 7, BUN 49, creatinine 1.1, estimated GFR was 60 mL per minute. Her glucose 119, calcium was 8.7. ASSESSMENT: 1. Acute on chronic hypoxic hypercapnic respiratory failure, requiring intubation and mechanical ventilation. The patient continues to be hypoxic despite being on FiO2 of 100%. Her echocardiogram showed no evidence of atrial septal defect or persistent foramen ovale. 2. Community-acquired pneumonia, for which she continues on IV antibiotics. 3. Acute on chronic diastolic congestive heart failure, seems to be clinically well compensated. 4. Acute kidney injury, improving. Her creatinine is down to 1.1 mg/dL. 5. COVID-19 tested negative twice. 6. Morbid obesity and obstructive sleep apnea. 7. Elevated troponin that was felt to be due to demand ischemia. 8. The patient has apparently been admitted before [facility] and required an ECMO for severe hypoxemia. At home, she is on 12 liters of oxygen at rest and 15 liters on exertion. 9. Patient has multiple other medical problems including: A. Hypertension. B. Type 2 diabetes mellitus. C. Chronic pulmonary sarcoidosis, severe interstitial lung disease. D. Chronic obstructive pulmonary disease. E. History of pulmonary embolism. PLAN: To continue with mechanical ventilation. Continue with IV antibiotic. Continue with IV steroids. Continue with DVT and PE prophylaxis. Continue to monitor blood sugar and adjust insulin as needed. Her overall prognosis remains extremely poor. DARION MANCINI MD DR: NICHOLAS/emmett JOB#: [id number] / [id number]
[2020-09-30 10:42] LABS: PO2 ABG 47 mmHg (65-108)
[2020-09-30 10:43] LABS: FIO2 ABG 100% +10
--- NOTE | 2020-09-30 15:49 | NUR ---
SS following up with discharge planning. SS reviewed pt chart and discussed with pt RN. Pt is currently on the vent at 100%. COVID19 negative. Pt on IV Zosyn. Not stable. Physicians discussing goals of care with family. SS will continue to follow for discharge planning.
[2020-09-30] MEDS: fentaNYL HIGH DOSE PCA 55 ML IV PRN (19:55)
[2020-10-01] VITALS (12 sets, daily range): BP systolic 106–173; BP diastolic 59–97
[2020-10-01] MEDS: MIDAZOLAM 100mg/100ml NS BAG 100 ML IV PRN ×3 (00:49→18:22)
--- NOTE | 2020-10-01 05:50 | PDOC ---
PULMONARY PROGRESS NOTES DATE: 10/01/20 TIME: 05:48 Subjective Patient remains on vent support, sedaed on versed fentanyl mod ett secretion Pressure Control, Control 100% and PEEP 12 Vitals Vital Signs Date Time Temp Pulse Resp B/P (MAP) Pulse Ox O2 Delivery O2 Flow Rate FiO2 10/01/20 04:00 Mechanical Ventilator 10/01/20 04:00 99.3 70 20 145/79 (101) 82 99.3 Comments ros unable to obtain Intubated/sedated HEENT: Other (nc at perrl nose clear orally intubated neck no lad no thyromegaly) Lungs: Crackles Cardiovascular: S1, S2 Abdomen: Soft, Non-tender, Other (no mass) Extremities: No Edema Skin: Warm Labs Laboratory Tests Test 09/29/20 06:02 09/29/20 08:00 09/29/20 12:37 09/29/20 17:34 Glucose (Fingerstick) 181 mg/dL (70-99) 183 mg/dL (70-99) 119 mg/dL (70-99) O2 Saturation 90 % (92-99) Arterial Blood pH 7.56 (7.35-7.45) Arterial Blood pCO2 at Patient Temp 26 mmHg (35-46) Arterial Blood pO2 at Patient Temp 55 mmHg (65-108) Arterial Blood HCO3 23 mmol/L (21-28) Arterial Blood Base Excess 2 mmol/L (-3-3) FiO2 100% Test 09/29/20 20:42 09/29/20 23:55 09/30/20 05:30 09/30/20 05:34 Glucose (Fingerstick) 90 mg/dL (70-99) 135 mg/dL (70-99) 131 mg/dL (70-99) White Blood Count 20.3 x10^3/uL (4.0-11.0) Red Blood Count 5.46 x10^6/uL (3.50-5.40) Hemoglobin 12.0 g/dL (12.0-15.5) Hematocrit 40.6 % (36.0-47.0) Mean Corpuscular Volume 74 fL (79-100) Mean Corpuscular Hemoglobin 22 pg (25-35) Mean Corpuscular Hemoglobin Concent 30 g/dL (31-37) Red Cell Distribution Width 18.9 % (11.5-14.5) Platelet Count 258 x10^3/uL (140-400) Neutrophils (%) (Auto) 89 % (31-73) Lymphocytes (%) (Auto) 5 % (24-48) Monocytes (%) (Auto) 5 % (0-9) Eosinophils (%) (Auto) 0 % (0-3) Basophils (%) (Auto) 0 % (0-3) Neutrophils # (Auto) 18.1 x10^3/uL (1.8-7.7) Lymphocytes # (Auto) 1.0 x10^3/uL (1.0-4.8) Monocytes # (Auto) 1.1 x10^3/uL (0.0-1.1) Eosinophils # (Auto) 0.0 x10^3/uL (0.0-0.7) Basophils # (Auto) 0.1 x10^3/uL (0.0-0.2) Sodium Level 147 mmol/L (136-145) Potassium Level 4.1 mmol/L (3.5-5.1) Chloride Level 113 mmol/L (98-107) Carbon Dioxide Level 27 mmol/L (21-32) Anion Gap 7 (6-14) Blood Urea Nitrogen 49 mg/dL (7-20) Creatinine 1.1 mg/dL (0.6-1.0) Estimated GFR (Cockcroft-Gault) 59.9 Glucose Level 119 mg/dL (70-99) Calcium Level 8.7 mg/dL (8.5-10.1) Test 09/30/20 07:30 09/30/20 11:43 09/30/20 12:15 09/30/20 18:14 O2 Saturation 81 % (92-99) Arterial Blood pH 7.34 (7.35-7.45) Arterial Blood pCO2 at Patient Temp 50 mmHg (35-46) Arterial Blood pO2 at Patient Temp 47 mmHg (65-108) Arterial Blood HCO3 26 mmol/L (21-28) Arterial Blood Base Excess 0 mmol/L (-3-3) FiO2 100% +10 Glucose (Fingerstick) 95 mg/dL (70-99) 171 mg/dL (70-99) Nasal Screen MRSA (PCR) Negative (NEGATIVE) Test 09/30/20 21:22 09/30/20 23:53 Glucose (Fingerstick) 200 mg/dL (70-99) 196 mg/dL (70-99) Laboratory Tests Test 09/30/20 07:30 09/30/20 11:43 09/30/20 12:15 09/30/20 18:14 O2 Saturation 81 % (92-99) Arterial Blood pH 7.34 (7.35-7.45) Arterial Blood pCO2 at Patient Temp 50 mmHg (35-46) Arterial Blood pO2 at Patient Temp 47 mmHg (65-108) Arterial Blood HCO3 26 mmol/L (21-28) Arterial Blood Base Excess 0 mmol/L (-3-3) FiO2 100% +10 Glucose (Fingerstick) 95 mg/dL (70-99) 171 mg/dL (70-99) Nasal Screen MRSA (PCR) Negative (NEGATIVE) Test 09/30/20 21:22 09/30/20 23:53 Glucose (Fingerstick) 200 mg/dL (70-99) 196 mg/dL (70-99) Medications Active Scripts Medications Dose Route/Sig Max Daily Dose Days Date Category Metolazone 5 Mg Tablet 5 Mg PO QODAY 09/17/20 Reported Imuran (Azathioprine) 50 Mg Tablet 1 Tab PO DAILY 30 09/17/20 Reported Albuterol Sulfate Neb Soln (Albuterol Sulfate) 2.5 Mg/3 Ml Vial.neb 1 Vial NEB PRN Q4HRS 09/17/20 Reported Carvedilol (Carvedilol) 12.5 Mg Tablet 12.5 Mg PO BIDWMEALS 09/17/20 Reported Melatonin 5 Mg Capsule 3 Mg PO HS 09/17/20 Reported Duoneb 0.5-3(2.5) Mg/3 Ml (Albuterol/Ipratropium) 3 Ml Ampul.neb 3 Ml NEB QID 09/17/20 Reported Klor-Con 10 (Potassium Chloride) 10 Meq Tablet.er 1 Tab PO DAILY 30 09/17/20 Reported Eliquis (Apixaban) 5 Mg Tablet 5 Mg PO BID 09/17/20 Reported Torsemide 20 Mg Tablet 1 Tab PO BID 09/17/20 Reported Metformin Hcl 1,000 Mg Tablet 1,000 Mg PO BIDWMEALS 09/17/20 Reported Oxycodone HCl 5 Mg Tablet 10 Mg PO PRN Q6HRS PRN 09/17/20 Reported Ambien (Zolpidem Tartrate) 5 Mg Tablet 5 Mg PO PRN QHS PRN 09/17/20 Reported Levothyroxine Sodium 125 Mcg Tablet 1 Tab PO DAILY 09/17/20 Reported Gabapentin (Gabapentin) 300 Mg Capsule 300 Mg PO BID 09/17/20 Reported Lantus Solostar (Insulin Glargine,Hum.rec.anlog) 100 Unit/1 Ml Insuln.pen 20 Unit SQ QHS 09/17/20 Reported Insulin Lispro 100 Unit/1 Ml Vial 10 Unit SQ TID 09/17/20 Reported Comments CXR reviewed 1. ett ok 2. Bilateral parenchymal airspace opacities, new/progressed compared to 09/28/2020 likely multifocal consolidative process. Impression . IMPRESSION: 1. Acute hypoxic respiratory failure, multifactorial, requiring intubation worsening oxygenation, suspected ALI/ARDS/ shunt physiology/ She was at one point about to be put on ECHMO in past / review records from [facility] suggest that she was on home O2 at 12 litres at rest/ 15 litres with exertion.Severe hypoxia was attributed to ILD from sarcoidosis/ no sig pulmonary htn on previous [facility]HC, NO SHUNT on echo 2. Abnormal x-ray. 3. Acute on chronic kidney injury..(Azotemia) 4. Chronic rt heart failure. 5. ? bacterial pneumonia.no positive cultures 6. COVID-19-- negative X2 7. Metabolic toxic encephalopathy. 8. Elevated liver chemistries. 9. Moderate protein malnutrition, present upon admission. Plan . PLAN: Continue Vent Support Pressure Control setting reviewed -- 20/20/100% and PEEP 12, increased peep to 14 Follow CXR/ABG -- Continue Eliquis for Full dose Anti-coagulation for PE Pt has h/o Sarcoidosis/ ILD, continue IV steroids repeated COVID neg, Echo with bubble study with no shunt Continue empiric antibiotics, Zosyn 09/23-- monitor consider ID consult send MRSA PCR Monitor renal function Follow cardiology recommendations DVT/GI prophylaxis D/W RN and RT Pt. is [facility]ULL [facility] 01, 2020 05:50
[2020-10-01] MEDS: PIPERACILLIN/TAZOBACTAM 3.375 GM in IV NORMAL SALINE 50ML 50 ML IV SCH ×3 (06:16→18:00)
[2020-10-01] MEDS: INSULIN LISPRO 300 UNITS/3 ML VIAL. SQ SCH ×6 (06:16→18:00)
[2020-10-01] MEDS: methylPREDNISolone SOD SUCC PF 40 MG/ML VIAL. IV SCH ×3 (06:17→21:30)
[2020-10-01 06:27] LABS: BASO % 0 % (0-3); EOS % 0 % (0-3); HEMATOCRIT 41.3 % (36.0-47.0); HEMOGLOBIN 12.6 g/dL (12.0-15.5); LYMPH # 1.3 x10^3/uL (1.0-4.8); LYMPH % 6 % (24-48); MEAN CORPUSCULAR HEMOGLOBIN 23 pg (25-35); MEAN CORPUSCULAR HGB CONC 31 g/dL (31-37); MEAN CORPUSCULAR VOLUME 74 fL (79-100); MONO # 1.1 x10^3/uL (0.0-1.1); MONO % 5 % (0-9); NEUT # 18.8 x10^3/uL (1.8-7.7); NEUT % 89 % (31-73); PLATELET COUNT 233 x10^3/uL (140-400); RED BLOOD COUNT 5.59 x10^6/uL (3.50-5.40); WHITE BLOOD COUNT 21.2 x10^3/uL (4.0-11.0)
[2020-10-01 06:28] LABS: CALCIUM 8.5 mg/dL (8.5-10.1); CREATININE 1.1 mg/dL (0.6-1.0); GFR 59.9; POTASSIUM 4.7 mmol/L (3.5-5.1)
[2020-10-01] MEDS: CARVEDILOL 12.5 MG TABLET. PO SCH ×2 (08:00→17:00)
[2020-10-01 08:18] LABS: BASE EXCESS ABG 0 mmol/L (-3-3); HCO3 ABG 25 mmol/L (21-28); PCO2 ABG 39 mmHg (35-46); SAT O2 ABG 84 % (92-99)
[2020-10-01 08:21] LABS: PO2 ABG 49 mmHg (65-108)
[2020-10-01 08:22] LABS: FIO2 ABG 100% +14 PEEP
[2020-10-01] MEDS: ISOSORBIDE DINITRATE 10 MG TABLET. PO SCH ×3 (09:00→21:00)
[2020-10-01] MEDS: FAMOTIDINE 20 MG/2 ML VIAL IVP SCH ×2 (09:00→21:30)
--- NOTE | 2020-10-01 09:17 | PN ---
DATE: 10/01/2020 SUBJECTIVE: The patient continued to be sedated, intubated, and mechanically ventilated. She continued to be hypoxic with oxygen saturation ____% on FiO2 of 100%. PHYSICAL EXAMINATION: GENERAL: On examining her, she looked well and was clearly in no apparent respiratory distress. No pallor, jaundice or cyanosis. No lymphadenopathy, no thyromegaly. No jugular venous distention. No limb edema. VITAL SIGNS: Her heart rate was 74, blood pressure was 173/97, temperature was 99.3, respiratory rate was 23, and oxygen saturation was 83% on FiO2 of 100%. HEAD, EYES, EARS, NOSE, AND THROAT: Normocephalic, atraumatic. She has got an orotracheal and orogastric tube. NECK: Supple. HEART: Normal first and second heart sounds. No gallop or murmur. CHEST: Clear to auscultation. No crepitation or rhonchi. ABDOMEN: Markedly distended, soft, nontender. NEUROLOGIC: She is heavily sedated. Her intake over the last 24 hours was 4100, output was 1900. LABORATORY DATA: As of this morning, her white cell count went up to 21,000; hemoglobin 12.6; hematocrit 41; MCV 74; and platelet count 233,000 with a manual differential showed 89% polymorphs, 6% lymphocytes, 5% monocytes. Serum sodium was 143, potassium 4.7, chloride 111, bicarbonate 28, anion gap of 4, BUN 47, creatinine 1.1, estimated GFR was 59 mL per minute. Her glucose was 202 and calcium was 8.5. ASSESSMENT: 1. Acute on chronic hypoxic hypercapnic respiratory failure, requiring intubation and mechanical ventilation. The patient continues to be hypoxic despite being on FiO2 of 100%. Her echocardiogram showed no evidence of septal defect or resistant foramen ovale. 2. Community-acquired pneumonia, for which she continues to be on IV antibiotic. 3. Acute on chronic diastolic congestive heart failure, seems to be clinically well compensated. 4. Acute kidney injury, improving. Her most recent serum creatinine is down to 1.1 mg/dL. 5. COVID-19 tested twice was negative. 6. Morbid obesity and obstructive sleep apnea. 7. Elevated troponin that was felt to be due to demand ischemia. 8. The patient has apparently been admitted before to [facility] and required an ECMO for severe hypoxemia. At home, she is on 12 liters of oxygen at rest and 15 liters on exertion. 9. The patient has multiple other medical problems including: A. Hypertension. B. Type 2 diabetes mellitus. C. 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 D. Chronic obstructive pulmonary disease. E. History of pulmonary embolism. PLAN: Obviously to continue with mechanical ventilation. Continue with IV antibiotic. Continue with DVT and GI prophylaxis. Continue with IV steroids. Continue to monitor blood sugar and adjust insulin as needed. Her overall prognosis continues to be extremely poor. DARION MANCINI MD DR: NICHOLAS/emmett JOB#: [id number] / [id number]
[2020-10-01] MEDS: ANTI-COAG MONITOR BY PHARMACY. MC PRN (09:26)
[2020-10-01] MEDS: APIXABAN 5 MG TABLET. PO SCH ×2 (09:32→21:30)
[2020-10-01] MEDS: ASPIRIN CHEWABLE 81 MG TABLET. PO SCH (09:32)
[2020-10-01] MEDS: NYSTATIN TOPICAL POWDER 15GM BOTTLE. TP SCH ×2 (09:34→21:31)
[2020-10-01] MEDS: INSULIN GLARGINE SYRINGE. SQ SCH ×2 (09:34→21:32)
[2020-10-01] MEDS: fentaNYL HIGH DOSE PCA 55 ML IV PRN ×2 (10:25→21:41)
--- NOTE | 2020-10-01 20:04 | NUR ---
Dropping sats thru day (77-83%) with inability to improve after repositioning around 1730 this noemi. Placd on back w pillow support them lavaged x2 w only return rojas saline. Condition guarded
[2020-10-02] VITALS (22 sets, daily range): BP systolic 90–189; BP diastolic 49–89
[2020-10-02] MEDS: INSULIN LISPRO 300 UNITS/3 ML VIAL. SQ SCH ×8 (00:33→18:00)
[2020-10-02] MEDS: PIPERACILLIN/TAZOBACTAM 3.375 GM in IV NORMAL SALINE 50ML 50 ML IV SCH ×4 (00:33→18:00)
[2020-10-02] MEDS: MIDAZOLAM 100mg/100ml NS BAG 100 ML IV PRN ×2 (03:30→13:08)
--- NOTE | 2020-10-02 05:39 | PDOC ---
PULMONARY PROGRESS NOTES DATE: 10/02/20 TIME: 05:38 Subjective Patient remains on vent support, sedaed on versed fentanyl mod ett secretion Pressure Control, Control 100% and PEEP 14 desating Vitals Vital Signs Date Time Temp Pulse Resp B/P (MAP) Pulse Ox O2 Delivery O2 Flow Rate FiO2 10/02/20 04:00 98.5 68 27 172/81 (111) 78 Ventilator 98.5 10/01/20 10:25 84.0 Comments ros unable to obtain Intubated/sedated HEENT: Other (nc at perrl nose clear orally intubated neck no lad no thyromegaly) Lungs: Crackles Cardiovascular: S1, S2 Abdomen: Soft, Non-tender, Other (no mass) Extremities: No Edema Skin: Warm Labs Laboratory Tests Test 09/30/20 07:30 09/30/20 11:43 09/30/20 12:15 09/30/20 18:14 O2 Saturation 81 % (92-99) Arterial Blood pH 7.34 (7.35-7.45) Arterial Blood pCO2 at Patient Temp 50 mmHg (35-46) Arterial Blood pO2 at Patient Temp 47 mmHg (65-108) Arterial Blood HCO3 26 mmol/L (21-28) Arterial Blood Base Excess 0 mmol/L (-3-3) FiO2 100% +10 Glucose (Fingerstick) 95 mg/dL (70-99) 171 mg/dL (70-99) Nasal Screen MRSA (PCR) Negative (NEGATIVE) Test 09/30/20 21:22 09/30/20 23:53 10/01/20 05:45 10/01/20 06:04 Glucose (Fingerstick) 200 mg/dL (70-99) 196 mg/dL (70-99) 192 mg/dL (70-99) White Blood Count 21.2 x10^3/uL (4.0-11.0) Red Blood Count 5.59 x10^6/uL (3.50-5.40) Hemoglobin 12.6 g/dL (12.0-15.5) Hematocrit 41.3 % (36.0-47.0) Mean Corpuscular Volume 74 fL (79-100) Mean Corpuscular Hemoglobin 23 pg (25-35) Mean Corpuscular Hemoglobin Concent 31 g/dL (31-37) Red Cell Distribution Width 19.0 % (11.5-14.5) Platelet Count 233 x10^3/uL (140-400) Neutrophils (%) (Auto) 89 % (31-73) Lymphocytes (%) (Auto) 6 % (24-48) Monocytes (%) (Auto) 5 % (0-9) Eosinophils (%) (Auto) 0 % (0-3) Basophils (%) (Auto) 0 % (0-3) Neutrophils # (Auto) 18.8 x10^3/uL (1.8-7.7) Lymphocytes # (Auto) 1.3 x10^3/uL (1.0-4.8) Monocytes # (Auto) 1.1 x10^3/uL (0.0-1.1) Eosinophils # (Auto) 0.0 x10^3/uL (0.0-0.7) Basophils # (Auto) 0.0 x10^3/uL (0.0-0.2) Sodium Level 143 mmol/L (136-145) Potassium Level 4.7 mmol/L (3.5-5.1) Chloride Level 111 mmol/L (98-107) Carbon Dioxide Level 28 mmol/L (21-32) Anion Gap 4 (6-14) Blood Urea Nitrogen 47 mg/dL (7-20) Creatinine 1.1 mg/dL (0.6-1.0) Estimated GFR (Cockcroft-Gault) 59.9 Glucose Level 202 mg/dL (70-99) Calcium Level 8.5 mg/dL (8.5-10.1) Test 10/01/20 08:20 10/01/20 12:00 10/01/20 18:40 10/02/20 00:31 O2 Saturation 84 % (92-99) Arterial Blood pH 7.41 (7.35-7.45) Arterial Blood pCO2 at Patient Temp 39 mmHg (35-46) Arterial Blood pO2 at Patient Temp 49 mmHg (65-108) Arterial Blood HCO3 25 mmol/L (21-28) Arterial Blood Base Excess 0 mmol/L (-3-3) FiO2 100% +14 peep Glucose (Fingerstick) 123 mg/dL (70-99) 120 mg/dL (70-99) 176 mg/dL (70-99) Laboratory Tests Test 10/01/20 05:45 10/01/20 06:04 10/01/20 08:20 10/01/20 12:00 White Blood Count 21.2 x10^3/uL (4.0-11.0) Red Blood Count 5.59 x10^6/uL (3.50-5.40) Hemoglobin 12.6 g/dL (12.0-15.5) Hematocrit 41.3 % (36.0-47.0) Mean Corpuscular Volume 74 fL (79-100) Mean Corpuscular Hemoglobin 23 pg (25-35) Mean Corpuscular Hemoglobin Concent 31 g/dL (31-37) Red Cell Distribution Width 19.0 % (11.5-14.5) Platelet Count 233 x10^3/uL (140-400) Neutrophils (%) (Auto) 89 % (31-73) Lymphocytes (%) (Auto) 6 % (24-48) Monocytes (%) (Auto) 5 % (0-9) Eosinophils (%) (Auto) 0 % (0-3) Basophils (%) (Auto) 0 % (0-3) Neutrophils # (Auto) 18.8 x10^3/uL (1.8-7.7) Lymphocytes # (Auto) 1.3 x10^3/uL (1.0-4.8) Monocytes # (Auto) 1.1 x10^3/uL (0.0-1.1) Eosinophils # (Auto) 0.0 x10^3/uL (0.0-0.7) Basophils # (Auto) 0.0 x10^3/uL (0.0-0.2) Sodium Level 143 mmol/L (136-145) Potassium Level 4.7 mmol/L (3.5-5.1) Chloride Level 111 mmol/L (98-107) Carbon Dioxide Level 28 mmol/L (21-32) Anion Gap 4 (6-14) Blood Urea Nitrogen 47 mg/dL (7-20) Creatinine 1.1 mg/dL (0.6-1.0) Estimated GFR (Cockcroft-Gault) 59.9 Glucose Level 202 mg/dL (70-99) Calcium Level 8.5 mg/dL (8.5-10.1) Glucose (Fingerstick) 192 mg/dL (70-99) 123 mg/dL (70-99) O2 Saturation 84 % (92-99) Arterial Blood pH 7.41 (7.35-7.45) Arterial Blood pCO2 at Patient Temp 39 mmHg (35-46) Arterial Blood pO2 at Patient Temp 49 mmHg (65-108) Arterial Blood HCO3 25 mmol/L (21-28) Arterial Blood Base Excess 0 mmol/L (-3-3) FiO2 100% +14 peep Test 10/01/20 18:40 10/02/20 00:31 Glucose (Fingerstick) 120 mg/dL (70-99) 176 mg/dL (70-99) Medications Active Scripts Medications Dose Route/Sig Max Daily Dose Days Date Category Metolazone 5 Mg Tablet 5 Mg PO QODAY 09/17/20 Reported Imuran (Azathioprine) 50 Mg Tablet 1 Tab PO DAILY 30 09/17/20 Reported Albuterol Sulfate Neb Soln (Albuterol Sulfate) 2.5 Mg/3 Ml Vial.neb 1 Vial NEB PRN Q4HRS 09/17/20 Reported Carvedilol (Carvedilol) 12.5 Mg Tablet 12.5 Mg PO BIDWMEALS 09/17/20 Reported Melatonin 5 Mg Capsule 3 Mg PO HS 09/17/20 Reported Duoneb 0.5-3(2.5) Mg/3 Ml (Albuterol/Ipratropium) 3 Ml Ampul.neb 3 Ml NEB QID 09/17/20 Reported Klor-Con 10 (Potassium Chloride) 10 Meq Tablet.er 1 Tab PO DAILY 30 09/17/20 Reported Eliquis (Apixaban) 5 Mg Tablet 5 Mg PO BID 09/17/20 Reported Torsemide 20 Mg Tablet 1 Tab PO BID 09/17/20 Reported Metformin Hcl 1,000 Mg Tablet 1,000 Mg PO BIDWMEALS 09/17/20 Reported Oxycodone HCl 5 Mg Tablet 10 Mg PO PRN Q6HRS PRN 09/17/20 Reported Ambien (Zolpidem Tartrate) 5 Mg Tablet 5 Mg PO PRN QHS PRN 09/17/20 Reported Levothyroxine Sodium 125 Mcg Tablet 1 Tab PO DAILY 09/17/20 Reported Gabapentin (Gabapentin) 300 Mg Capsule 300 Mg PO BID 09/17/20 Reported Lantus Solostar (Insulin Glargine,Hum.rec.anlog) 100 Unit/1 Ml Insuln.pen 20 Unit SQ QHS 09/17/20 Reported Insulin Lispro 100 Unit/1 Ml Vial 10 Unit SQ TID 09/17/20 Reported Comments CXR reviewed 1. ett ok 2. Bilateral parenchymal airspace opacities, new/progressed compared to 09/28/2020 likely multifocal consolidative process. Impression . IMPRESSION: 1. Acute hypoxic respiratory failure, multifactorial, requiring intubation worsening oxygenation, suspected ALI/ARDS/ shunt physiology/ She was at one point about to be put on ECHMO in past / review records from [facility] suggest that she was on home O2 at 12 litres at rest/ 15 litres with exertion.Severe hypoxia was attributed to ILD from sarcoidosis/ no sig pulmonary htn on previous RHC, NO SHUNT on echo 2. Abnormal x-ray. 3. Acute on chronic kidney injury..(Azotemia) 4. Chronic rt heart failure. 5. ? bacterial pneumonia.no positive cultures 6. COVID-19-- negative X2 7. Metabolic toxic encephalopathy. 8. Elevated liver chemistries. 9. Moderate protein malnutrition, present upon admission. Plan . PLAN: Continue Vent Support Pressure Control setting reviewed -- abg reviewed will increase PEEP 16 peak airway pressure is low not sync w vent need more sedation add propofol may need paralytic agent Follow CXR/ABG -- Continue Eliquis for Full dose Anti-coagulation for PE Pt has h/o Sarcoidosis/ ILD, increase solumedrol to 80 q 8 hrs repeated COVID neg, Echo with bubble study with no shunt Continue empiric antibiotics, Zosyn 09/23-- monitor consider ID consult send MRSA PCR Monitor renal function Follow cardiology recommendations DVT/GI prophylaxis D/W RN and RT Pt. is FULL CODE prognosis very poor [facility], 2020 05:39
[2020-10-02] MEDS: methylPREDNISolone SOD SUCC PF 40 MG/ML VIAL. IV SCH ×3 (06:21→21:21)
[2020-10-02 06:32] LABS: CALCIUM 8.9 mg/dL (8.5-10.1); CREATININE 1.1 mg/dL (0.6-1.0); GFR 59.9; POTASSIUM 5.1 mmol/L (3.5-5.1)
[2020-10-02] MEDS: PROPOFOL 100 ML IV PRN (07:00)
[2020-10-02 07:02] LABS: BASO % 0 % (0-3); EOS % 0 % (0-3); HEMATOCRIT 42.7 % (36.0-47.0); LYMPH # 0.9 x10^3/uL (1.0-4.8); LYMPH % 5 % (24-48); MEAN CORPUSCULAR HEMOGLOBIN 23 pg (25-35); MEAN CORPUSCULAR HGB CONC 31 g/dL (31-37); MEAN CORPUSCULAR VOLUME 74 fL (79-100); MONO # 1.1 x10^3/uL (0.0-1.1); MONO % 5 % (0-9); NEUT # 18.9 x10^3/uL (1.8-7.7); NEUT % 90 % (31-73); PLATELET COUNT 227 x10^3/uL (140-400); RED BLOOD COUNT 5.76 x10^6/uL (3.50-5.40); WHITE BLOOD COUNT 20.9 x10^3/uL (4.0-11.0)
[2020-10-02] MEDS: CARVEDILOL 12.5 MG TABLET. PO SCH ×2 (08:00→17:00)
--- NOTE | 2020-10-02 08:40 | NUR ---
0700 PROPOFOL ADDED TO SEDATION MEDS . STARTED AT 0745 W SIGNIFICANT DECREASE IN sbp. aLL ANTIHYPERTENSIVE WILL not BE GIVEN AT THIS TIME.. OVERT DIFFICULTY MAINTAINING SAT > 70%. SECRETIONS MED /THICK/ YELLO cOUGH/GAG PRESWENT. OPENS EYES AND IS RESPONSIVE . TURNING HEAD TOWARD VOICE Addendum: 10/02/20 at 0858 by Aminata Smith RN Amended: Links added.
[2020-10-02] MEDS: ISOSORBIDE DINITRATE 10 MG TABLET. PO SCH ×3 (09:00→21:21)
[2020-10-02] MEDS: NYSTATIN TOPICAL POWDER 15GM BOTTLE. TP SCH ×2 (09:03→21:21)
[2020-10-02] MEDS: INSULIN GLARGINE SYRINGE. SQ SCH ×2 (09:03→21:00)
[2020-10-02 09:07] LABS: BASE EXCESS ABG -2 mmol/L (-3-3); HCO3 ABG 23 mmol/L (21-28); PCO2 ABG 42 mmHg (35-46); SAT O2 ABG 74 % (92-99)
[2020-10-02] MEDS: APIXABAN 5 MG TABLET. PO SCH ×2 (09:08→21:20)
[2020-10-02] MEDS: ASPIRIN CHEWABLE 81 MG TABLET. PO SCH (09:08)
[2020-10-02] MEDS: FAMOTIDINE 20 MG/2 ML VIAL IVP SCH ×2 (09:09→21:20)
[2020-10-02 09:16] LABS: PO2 ABG < 42 mmHg (65-108)
[2020-10-02 09:17] LABS: FIO2 ABG 100% VENT + 14 PEEP
--- NOTE | 2020-10-02 09:20 | PN ---
DATE: 10/02/2020 SUBJECTIVE: The patient is resting, slightly propped up in bed, in no apparent respiratory distress. She is sedated, intubated and mechanically ventilated. Her oxygen saturation is trending down despite being on 100% FiO2. She desaturates further whenever any attempts made to move her or reposition her. Unfortunately, the family continued to do everything humanly possible despite the fact that she is not a candidate for lung transplant and her prognosis is extremely poor. PHYSICAL EXAMINATION: GENERAL: When I examined her this morning, there was no pallor, jaundice, cyanosis or thyromegaly. No jugular venous distention. No lower limb edema. VITAL SIGNS: Her heart rate was 70, blood pressure was 161/89, temperature was 98.5, respiratory rate 24 and oxygen saturation was 76% on FiO2 of 100%. HEENT: Showed normocephalic, atraumatic. NECK: Supple. HEART: Normal first and second heart sounds. No gallop, rub or murmur. CHEST: Shows central trachea, equal bilateral chest expansion, air entry, vesicular sounds. I could not appreciate any crepitation or rhonchi anteriorly. ABDOMEN: Distended, soft, nontender. NEUROLOGIC: She is heavily sedated. Her intake over the last 24 hours was 3400, output was 2400. LABORATORY DATA: Her white cell count was 21,000, hemoglobin 13, hematocrit 42, MCV 74 and platelet count 227,000. Serum sodium 147, potassium 5.1, chloride 112, bicarbonate 28, anion gap of 7, BUN 48, creatinine 1.2, estimated GFR was 60 mL per minute. Her glucose 187, calcium was 8.9. ASSESSMENT: 1. Acute on chronic hypoxic hypercapnic respiratory failure, requiring intubation and mechanical ventilation. The patient continues to be hypoxic with an oxygen saturation of only 76% despite being on FiO2 of 100%. Her echocardiogram showed no evidence of atrial septal defect or persistent foramen ovale. 2. Community-acquired pneumonia, for which she continues to be on IV antibiotic. 3. Acute on chronic diastolic congestive heart failure, which seems to be clinically well compensated. 4. Acute kidney injury, improving. Her most recent serum creatinine is down to 1.1 mg/dL. 5. COVID-19 testing done twice and was negative. 6. Morbid obesity, obstructive sleep apnea. 7. Elevated troponin, was felt to be due to demand ischemia. 8. The patient apparently was admitted before to [facility] and required ECMO for severe hypoxemia. At home she is normally on 12 liters of oxygen at rest and 15 liters on exertion. 9. The patient has multiple other medical problems including: A. Hypertension. B. Type 2 diabetes mellitus. C. Chronic pulmonary sarcoidosis, severe interstitial lung disease. D. Chronic obstructive pulmonary disease. E. History of pulmonary embolism. PLAN: To continue with mechanical ventilation. Continue with IV antibiotic. Continue with DVT and GI prophylaxis. Continue with IV steroids. Continue to monitor her blood sugar and adjust insulin as needed. Unfortunately, her oxygen saturation continued to trend down. Her overall prognosis is extremely poor. DARION MANCINI MD DR: NICHOLAS/emmett JOB#: [id number] / [id number]
[2020-10-02] MEDS: ANTI-COAG MONITOR BY PHARMACY. MC PRN (09:29)
[2020-10-03] VITALS (24 sets, daily range): BP systolic 85–191; BP diastolic 50–107
[2020-10-03] MEDS: PIPERACILLIN/TAZOBACTAM 3.375 GM in IV NORMAL SALINE 50ML 50 ML IV SCH ×2 (00:41→05:28)
[2020-10-03] MEDS: MIDAZOLAM 100mg/100ml NS BAG 100 ML IV PRN ×2 (02:00→11:34)
[2020-10-03] MEDS: fentaNYL HIGH DOSE PCA 55 ML IV PRN (03:07)
[2020-10-03] MEDS: INSULIN LISPRO 300 UNITS/3 ML VIAL. SQ SCH ×8 (05:25→18:18)
[2020-10-03] MEDS: methylPREDNISolone SOD SUCC PF 40 MG/ML VIAL. IV SCH ×3 (05:28→22:20)
[2020-10-03] MEDS: PROPOFOL 100 ML IV PRN ×2 (06:35→13:15)
[2020-10-03] MEDS: CARVEDILOL 12.5 MG TABLET. PO SCH ×2 (08:00→17:03)
[2020-10-03] MEDS: ASPIRIN CHEWABLE 81 MG TABLET. PO SCH (08:40)
[2020-10-03] MEDS: APIXABAN 5 MG TABLET. PO SCH ×2 (08:41→22:16)
[2020-10-03] MEDS: FAMOTIDINE 20 MG/2 ML VIAL IVP SCH ×2 (08:41→22:15)
[2020-10-03] MEDS: NYSTATIN TOPICAL POWDER 15GM BOTTLE. TP SCH ×2 (08:43→22:17)
[2020-10-03] MEDS: ISOSORBIDE DINITRATE 10 MG TABLET. PO SCH ×3 (08:43→22:17)
[2020-10-03] MEDS: INSULIN GLARGINE SYRINGE. SQ SCH ×2 (08:43→21:00)
--- NOTE | 2020-10-03 08:53 | PN ---
DATE: 10/03/2020 SUBJECTIVE: The patient continued to be sedated, intubated, mechanically ventilated. Her oxygen saturation is only 72 percent despite being on FiO2 of 100%. The nursing staff did not voice any concern. OBJECTIVE: GENERAL: When I examined her, she looked well and was clearly in no apparent respiratory distress. No pallor, jaundice, cyanosis or thyromegaly. No jugular venous distention or limb edema. VITAL SIGNS: Her heart rate was 52, blood pressure was 111/57, temperature 97.6, respiratory rate 22, and oxygen saturation was 72% on FiO2 of 100%. HEAD, EYES, EARS, NOSE AND THROAT: Showed normocephalic, atraumatic. NECK: Supple. HEART: Normal first and second heart sounds. No gallop or murmur. CHEST: Shows central trachea, equal air entry, vesicular breath sounds. I could not appreciate any crepitation or rhonchi anteriorly. ABDOMEN: Distended, soft, nontender. NEUROLOGIC: She is heavily sedated. Her intake was 2100, output was 1000. LABORATORY DATA: Her blood sugar seems to be reasonably controlled. Has had no labs done this morning; however, as of yesterday, her serum sodium was 147, potassium 5.1, chloride 112, bicarbonate 29, anion gap of 7, BUN 48, creatinine 1.1, estimated GFR was 60 mL per minute. Her glucose 187, calcium was 8.9. Her white cell count was 20,900, hemoglobin 13, hematocrit 42, MCV 74 and platelet count 227,000. ASSESSMENT: 1. Acute on chronic hypoxic hypercapnic respiratory failure, requiring intubation and mechanical ventilation. The patient continued to be hypoxic and her oxygen saturation today was only 72%, despite being on FiO2 of 100%. Her echocardiogram showed no evidence of atrial septal defects or resistant foramen ovale. 2. Community-acquired pneumonia, for which she continues to be on IV antibiotic. 3. Acute on chronic diastolic congestive heart failure, seems to be clinically well compensated. 4. Acute kidney injury, improving. Her most recent serum creatinine is down to 1.1 mg/dL. 5. COVID-19 testing done twice and was negative. 6. Morbid obesity and obstructive sleep apnea. 7. Elevated troponin, felt to be secondary to demand ischemia. 8. The patient apparently was admitted before to [facility] and required ECMO for severe hypoxemia. At home she is normally at 12 liters of oxygen at rest and on 15 liters with exertion. 9. The patient has multiple other medical problems including: A. Hypertension. B. Type 2 diabetes mellitus. C. 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 D. Chronic obstructive pulmonary disease. D. History of pulmonary embolism. PLAN: To continue mechanical ventilation. Continue IV antibiotic. Continue DVT and GI prophylaxis. Continue with IV steroids. Continue to monitor blood sugar and adjust insulin as needed. Her overall prognosis is extremely poor. DARION MANCINI MD DR: NICHOLAS/emmett JOB#: [id number] / [id number]
[2020-10-03 08:59] LABS: BASE EXCESS ABG 0 mmol/L (-3-3); HCO3 ABG 25 mmol/L (21-28); PCO2 ABG 40 mmHg (35-46); SAT O2 ABG 72 % (92-99)
[2020-10-03 09:02] LABS: PO2 ABG < 42 mmHg (65-108)
[2020-10-03 09:03] LABS: FIO2 ABG 100
--- NOTE | 2020-10-03 09:38 | NUR ---
SS following up with discharge planning. SS reviewed pt chart and discussed with pt RN. Pt is currently on the vent at 100%. COVID19 negative. Not stable. Very poor prognosis. Full Code. SS notified that pt's sister, Dannielle Branham, , is DPOA but no paperwork has been provided. SS spoke with Dannielle and pt's spouse, Kenneth, and was notified that they do not have DPOA paperwork. Dannielle reported that she gave it to someone at [facility] to make a copy and it was never returned to her. Both Dannielle and Kenneth reported that they will NOT make pt a DNR. They reported that they are aware that pt is going to regardless of what is done and they want pt to "go out with everything being done." They reported that regardless of what physicians or nurses say they will not make pt DNR. RNRenetta, notified. Dannielle reported that she will contact [facility] and try to find a copy of DPOA paperwork. SS will continue to follow for discharge planning.
--- NOTE | 2020-10-03 09:48 | PDOC ---
PULMONARY PROGRESS NOTES DATE: 10/03/20 TIME: 09:44 Subjective Patient remains profoundly hypoxic despite ventilatory support, oxygen saturation 60% on examination today Remains on the vent at 100% and a PEEP of 12 Vitals Vital Signs Date Time Temp Pulse Resp B/P (MAP) Pulse Ox O2 Delivery O2 Flow Rate FiO2 10/03/20 09:26 57 22 115/62 (79) 73 Ventilator 10/03/20 07:27 97.6 97.6 Comments Intubated/sedated HEENT: Other (nc at perrl nose clear orally intubated neck no lad no thyromegaly) Lungs: Crackles Cardiovascular: S1, S2 Abdomen: Soft, Non-tender, Other (no mass) Extremities: No Edema Skin: Warm Labs Laboratory Tests Test 10/01/20 12:00 10/01/20 18:40 10/01/20 21:51 10/02/20 00:31 Glucose (Fingerstick) 123 mg/dL (70-99) 120 mg/dL (70-99) 105 mg/dL (70-99) 176 mg/dL (70-99) Test 10/02/20 05:55 10/02/20 06:20 10/02/20 08:00 10/02/20 19:12 White Blood Count 20.9 x10^3/uL (4.0-11.0) Red Blood Count 5.76 x10^6/uL (3.50-5.40) Hemoglobin 13.0 g/dL (12.0-15.5) Hematocrit 42.7 % (36.0-47.0) Mean Corpuscular Volume 74 fL (79-100) Mean Corpuscular Hemoglobin 23 pg (25-35) Mean Corpuscular Hemoglobin Concent 31 g/dL (31-37) Red Cell Distribution Width 19.0 % (11.5-14.5) Platelet Count 227 x10^3/uL (140-400) Neutrophils (%) (Auto) 90 % (31-73) Lymphocytes (%) (Auto) 5 % (24-48) Monocytes (%) (Auto) 5 % (0-9) Eosinophils (%) (Auto) 0 % (0-3) Basophils (%) (Auto) 0 % (0-3) Neutrophils # (Auto) 18.9 x10^3/uL (1.8-7.7) Lymphocytes # (Auto) 0.9 x10^3/uL (1.0-4.8) Monocytes # (Auto) 1.1 x10^3/uL (0.0-1.1) Eosinophils # (Auto) 0.0 x10^3/uL (0.0-0.7) Basophils # (Auto) 0.0 x10^3/uL (0.0-0.2) Sodium Level 147 mmol/L (136-145) Potassium Level 5.1 mmol/L (3.5-5.1) Chloride Level 112 mmol/L (98-107) Carbon Dioxide Level 28 mmol/L (21-32) Anion Gap 7 (6-14) Blood Urea Nitrogen 48 mg/dL (7-20) Creatinine 1.1 mg/dL (0.6-1.0) Estimated GFR (Cockcroft-Gault) 59.9 Glucose Level 187 mg/dL (70-99) Calcium Level 8.9 mg/dL (8.5-10.1) Glucose (Fingerstick) 184 mg/dL (70-99) 82 mg/dL (70-99) O2 Saturation 74 % (92-99) Arterial Blood pH 7.37 (7.35-7.45) Arterial Blood pCO2 at Patient Temp 42 mmHg (35-46) Arterial Blood pO2 at Patient Temp < 42 mmHg (65-108) Arterial Blood HCO3 23 mmol/L (21-28) Arterial Blood Base Excess -2 mmol/L (-3-3) FiO2 100% vent + 14 peep Test 10/02/20 21:23 10/03/20 00:37 10/03/20 05:24 10/03/20 08:50 Glucose (Fingerstick) 94 mg/dL (70-99) 95 mg/dL (70-99) 96 mg/dL (70-99) O2 Saturation 72 % (92-99) Arterial Blood pH 7.41 (7.35-7.45) Arterial Blood pCO2 at Patient Temp 40 mmHg (35-46) Arterial Blood pO2 at Patient Temp < 42 mmHg (65-108) Arterial Blood HCO3 25 mmol/L (21-28) Arterial Blood Base Excess 0 mmol/L (-3-3) FiO2 100 Laboratory Tests Test 10/02/20 19:12 10/02/20 21:23 10/03/20 00:37 10/03/20 05:24 Glucose (Fingerstick) 82 mg/dL (70-99) 94 mg/dL (70-99) 95 mg/dL (70-99) 96 mg/dL (70-99) Test 10/03/20 08:50 O2 Saturation 72 % (92-99) Arterial Blood pH 7.41 (7.35-7.45) Arterial Blood pCO2 at Patient Temp 40 mmHg (35-46) Arterial Blood pO2 at Patient Temp < 42 mmHg (65-108) Arterial Blood HCO3 25 mmol/L (21-28) Arterial Blood Base Excess 0 mmol/L (-3-3) FiO2 100 Medications Active Scripts Medications Dose Route/Sig Max Daily Dose Days Date Category Metolazone 5 Mg Tablet 5 Mg PO QODAY 09/17/20 Reported Imuran (Azathioprine) 50 Mg Tablet 1 Tab PO DAILY 30 09/17/20 Reported Albuterol Sulfate Neb Soln (Albuterol Sulfate) 2.5 Mg/3 Ml Vial.neb 1 Vial NEB PRN Q4HRS 09/17/20 Reported Carvedilol (Carvedilol) 12.5 Mg Tablet 12.5 Mg PO BIDWMEALS 09/17/20 Reported Melatonin 5 Mg Capsule 3 Mg PO HS 09/17/20 Reported Duoneb 0.5-3(2.5) Mg/3 Ml (Albuterol/Ipratropium) 3 Ml Ampul.neb 3 Ml NEB QID 09/17/20 Reported Klor-Con 10 (Potassium Chloride) 10 Meq Tablet.er 1 Tab PO DAILY 30 09/17/20 Reported Eliquis (Apixaban) 5 Mg Tablet 5 Mg PO BID 09/17/20 Reported Torsemide 20 Mg Tablet 1 Tab PO BID 09/17/20 Reported Metformin Hcl 1,000 Mg Tablet 1,000 Mg PO BIDWMEALS 09/17/20 Reported Oxycodone HCl 5 Mg Tablet 10 Mg PO PRN Q6HRS PRN 09/17/20 Reported Ambien (Zolpidem Tartrate) 5 Mg Tablet 5 Mg PO PRN QHS PRN 09/17/20 Reported Levothyroxine Sodium 125 Mcg Tablet 1 Tab PO DAILY 09/17/20 Reported Gabapentin (Gabapentin) 300 Mg Capsule 300 Mg PO BID 09/17/20 Reported Lantus Solostar (Insulin Glargine,Hum.rec.anlog) 100 Unit/1 Ml Insuln.pen 20 Unit SQ QHS 09/17/20 Reported Insulin Lispro 100 Unit/1 Ml Vial 10 Unit SQ TID 09/17/20 Reported Comments CXR reviewed 1. ett ok 2. Bilateral parenchymal airspace opacities, new/progressed compared to 09/28/2020 likely multifocal consolidative process. Impression . IMPRESSION: 1. Acute hypoxic respiratory failure, multifactorial, requiring intubation worsening oxygenation, suspected ALI/ARDS/ shunt physiology/ She was at one point about to be put on ECHMO in past / review records from [facility] suggest that she was on home O2 at 12 litres at rest/ 15 litres with exertion.Severe hypoxia was attributed to ILD from sarcoidosis/ no sig pulmonary htn on previous RHC, NO SHUNT on echo 2. Abnormal x-ray. 3. Acute on chronic kidney injury. 4. Chronic rt heart failure. 5. ? bacterial pneumonia.no positive cultures 6. COVID-19-- negative X2 7. Metabolic toxic encephalopathy. 8. Elevated liver chemistries. 9. Moderate protein malnutrition, present upon admission. Plan . PLAN: Continue current vent support, currently on pressure control rate of 22 with a driving pressure of 20, Fi02 100% and a PEEP of 12, remains hypoxic despite Follow CXR/ABG --no changes Continue Eliquis for Full dose Anti-coagulation for PE Pt has h/o Sarcoidosis/ ILD, continue steroids Echo with bubble study with no shunt Continue empiric antibiotics, Zosyn 09/23--- D/C today has completed full course COVID-19 negative, MRSA PCR negative Continue tube feeding for nutritional support DVT/GI prophylaxis D/W RN and RT Pt. is FULL CODE prognosis very poor, discussed with family who wishes to continue with full aggressive care [facility] YOUNGBLOOD MD Oct 03, 2020 09:47
[2020-10-03] MEDS: ANTI-COAG MONITOR BY PHARMACY. MC PRN (10:18)
--- NOTE | 2020-10-03 12:15 | NUR ---
Received DPOA paperwork via fax. Dannielle, patient's sister, is noted as patient's DPOA with Nkechi, patient's daughter as first alternative and Kenneth, patient's spouse, as second alternative. Paper work has been added to patient's chart.
[2020-10-04] VITALS (16 sets, daily range): BP systolic 67–134; BP diastolic 45–72
[2020-10-04] MEDS: INSULIN LISPRO 300 UNITS/3 ML VIAL. SQ SCH ×6 (01:06→11:34)
[2020-10-04] MEDS: PROPOFOL 100 ML IV PRN ×2 (03:57→11:22)
[2020-10-04] MEDS: fentaNYL HIGH DOSE PCA 55 ML IV PRN (03:58)
[2020-10-04] MEDS: methylPREDNISolone SOD SUCC PF 40 MG/ML VIAL. IV SCH ×2 (06:50→14:36)
[2020-10-04 06:56] LABS: HEMATOCRIT 41.4 % (36.0-47.0); HEMOGLOBIN 12.1 g/dL (12.0-15.5); RED BLOOD COUNT 5.49 x10^6/uL (3.50-5.40); RED CELL DISTRIBUTION WIDTH 19.5 % (11.5-14.5); WHITE BLOOD COUNT 16.6 x10^3/uL (4.0-11.0)
[2020-10-04 07:19] LABS: ALBUMIN 1.9 g/dL (3.4-5.0); ALBUMIN/GLOBULIN RATIO 0.4 (1.0-1.7); CALCIUM 8.6 mg/dL (8.5-10.1); GFR 66.9; POTASSIUM 4.4 mmol/L (3.5-5.1); TOTAL BILIRUBIN 0.2 mg/dL (0.2-1.0); TOTAL PROTEIN 6.7 g/dL (6.4-8.2)
--- NOTE | 2020-10-04 07:58 | PN ---
DATE: 10/04/2020 SUBJECTIVE: The patient is resting slightly propped up in bed, in no apparent distress. She is continued to be heavily sedated, intubated, mechanically ventilated. Her oxygen saturation is only 55% on FiO2 of 100%. PHYSICAL EXAMINATION: GENERAL: On examining her, there was no pallor, jaundice, cyanosis or thyromegaly. No jugular venous distention. No lower limb edema. VITAL SIGNS: Her heart rate was 69, blood pressure was 112/67, temperature 97.2, respiratory rate was 24, and oxygen saturation was 54% on FiO2 of 100%. HEENT: Showed normocephalic, atraumatic. She has orotracheal and orogastric tube in place. NECK: Supple. HEART: Normal first and second heart sounds. No gallop or murmur. CHEST: Clear to auscultation. No crepitation or rhonchi. ABDOMEN: Distended, soft, nontender. NEUROLOGIC: She is heavily sedated. Her intake was 1600, output was 1950. LABORATORY DATA: As of this morning; her white cell count was 16,600, hemoglobin 12, hematocrit 41, MCV 76 and platelet count of 199,000. Her chemistry showed a serum sodium of 147, potassium 4.4, chloride 112, bicarbonate 26, anion gap of 9, BUN 52, creatinine 1, estimated GFR was 66 mL per minute. Her glucose was 189, calcium was 8.6. Total bilirubin, AST, ALT, alkaline phosphatase were normal. Total protein 6.7, albumin was 1.9. ASSESSMENT: 1. Acute on chronic hypoxic hypercapnic respiratory failure, requiring intubation and mechanical ventilation. The patient continued to be extremely hypoxic with an oxygen saturation of only 55% despite being on FiO2 of 100%. Her echocardiogram showed no evidence of atrial septal defect or persistent foramen ovale. 2. Community-acquired pneumonia, for which she was treated with IV antibiotic. 3. Acute on chronic diastolic congestive heart failure that seems to be clinically well compensated. 4. Acute kidney injury, improving. His creatinine is down to 1 mg/dL. 5. COVID-19 tested twice and both times were negative. 6. Morbid obesity and obstructive sleep apnea. 7. Elevated troponin, felt to be secondary to demand ischemia. 8. The patient apparently was admitted before to [facility], required extracorporeal membrane oxygenation for severe hypoxemia. At home, she is now on 12 liters of oxygen at rest and 15 liters on exertion. 9. The patient has multiple other medical problems including: A. Hypertension. B. Type 2 diabetes mellitus, seems to be reasonably controlled. C. 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 D. Chronic obstructive pulmonary disease. E. History of pulmonary embolism, for which she is fully anticoagulated with apixaban. PLAN: To continue with mechanical ventilation. Continue with IV antibiotic. Continue with DVT and GI prophylaxis. Continue with IV steroids. Continue to monitor blood sugar and adjust insulin as needed. The patient's condition is steadily worsening and her overall prognosis is extremely poor. DARION MANCINI MD DR: NICHOLAS/emmett JOB#: [id number] / [id number]
[2020-10-04] MEDS: CARVEDILOL 12.5 MG TABLET. PO SCH (08:00)
[2020-10-04 08:13] LABS: BASE EXCESS ABG 0 mmol/L (-3-3); HCO3 ABG 27 mmol/L (21-28); PCO2 ABG 54 mmHg (35-46)
[2020-10-04 08:16] LABS: PO2 ABG < 42 mmHg (65-108); SAT O2 ABG 65 % (92-99)
[2020-10-04] MEDS: NYSTATIN TOPICAL POWDER 15GM BOTTLE. TP SCH (08:33)
[2020-10-04] MEDS: ASPIRIN CHEWABLE 81 MG TABLET. PO SCH (08:33)
[2020-10-04] MEDS: ISOSORBIDE DINITRATE 10 MG TABLET. PO SCH ×2 (08:34→14:27)
[2020-10-04] MEDS: FAMOTIDINE 20 MG/2 ML VIAL IVP SCH (08:36)
[2020-10-04] MEDS: INSULIN GLARGINE SYRINGE. SQ SCH (08:36)
[2020-10-04] MEDS: APIXABAN 5 MG TABLET. PO SCH (08:36)
--- NOTE | 2020-10-04 09:43 | PDOC ---
PULMONARY PROGRESS NOTES DATE: 10/04/20 TIME: 09:37 Subjective Patient remains profoundly hypoxic despite ventilatory support, oxygen saturation 56% on examination today Remains on the vent at 100% and a PEEP of 12 Vitals Vital Signs Date Time Temp Pulse Resp B/P (MAP) Pulse Ox O2 Delivery O2 Flow Rate FiO2 10/04/20 09:25 66 22 119/71 (87) 56 Ventilator 10/04/20 07:12 97.2 97.2 Comments Intubated/sedated HEENT: Other (nc at perrl nose clear orally intubated neck no lad no thyromegaly) Lungs: Crackles Cardiovascular: S1, S2 Abdomen: Soft, Non-tender, Other (no mass) Extremities: No Edema Skin: Warm Labs Laboratory Tests Test 10/02/20 19:12 10/02/20 21:23 10/03/20 00:37 10/03/20 05:24 Glucose (Fingerstick) 82 mg/dL (70-99) 94 mg/dL (70-99) 95 mg/dL (70-99) 96 mg/dL (70-99) Test 10/03/20 08:50 10/03/20 11:36 10/03/20 18:16 10/03/20 22:35 O2 Saturation 72 % (92-99) Arterial Blood pH 7.41 (7.35-7.45) Arterial Blood pCO2 at Patient Temp 40 mmHg (35-46) Arterial Blood pO2 at Patient Temp < 42 mmHg (65-108) Arterial Blood HCO3 25 mmol/L (21-28) Arterial Blood Base Excess 0 mmol/L (-3-3) FiO2 100 Glucose (Fingerstick) 90 mg/dL (70-99) 181 mg/dL (70-99) 188 mg/dL (70-99) Test 10/04/20 01:03 10/04/20 05:40 10/04/20 06:44 10/04/20 08:00 Glucose (Fingerstick) 174 mg/dL (70-99) 184 mg/dL (70-99) White Blood Count 16.6 x10^3/uL (4.0-11.0) Red Blood Count 5.49 x10^6/uL (3.50-5.40) Hemoglobin 12.1 g/dL (12.0-15.5) Hematocrit 41.4 % (36.0-47.0) Mean Corpuscular Volume 76 fL (79-100) Mean Corpuscular Hemoglobin 22 pg (25-35) Mean Corpuscular Hemoglobin Concent 29 g/dL (31-37) Red Cell Distribution Width 19.5 % (11.5-14.5) Platelet Count 199 x10^3/uL (140-400) Sodium Level 147 mmol/L (136-145) Potassium Level 4.4 mmol/L (3.5-5.1) Chloride Level 112 mmol/L (98-107) Carbon Dioxide Level 26 mmol/L (21-32) Anion Gap 9 (6-14) Blood Urea Nitrogen 52 mg/dL (7-20) Creatinine 1.0 mg/dL (0.6-1.0) Estimated GFR (Cockcroft-Gault) 66.9 BUN/Creatinine Ratio 52 (6-20) Glucose Level 189 mg/dL (70-99) Calcium Level 8.6 mg/dL (8.5-10.1) Total Bilirubin 0.2 mg/dL (0.2-1.0) Aspartate Amino Transf (AST/SGOT) 35 U/L (15-37) Alanine Aminotransferase (ALT/SGPT) 73 U/L (14-59) Alkaline Phosphatase 73 U/L (46-116) Total Protein 6.7 g/dL (6.4-8.2) Albumin 1.9 g/dL (3.4-5.0) Albumin/Globulin Ratio 0.4 (1.0-1.7) O2 Saturation 65 % (92-99) Arterial Blood pH 7.32 (7.35-7.45) Arterial Blood pCO2 at Patient Temp 54 mmHg (35-46) Arterial Blood pO2 at Patient Temp < 42 mmHg (65-108) Arterial Blood HCO3 27 mmol/L (21-28) Arterial Blood Base Excess 0 mmol/L (-3-3) FiO2 100/vent Laboratory Tests Test 10/03/20 11:36 10/03/20 18:16 10/03/20 22:35 10/04/20 01:03 Glucose (Fingerstick) 90 mg/dL (70-99) 181 mg/dL (70-99) 188 mg/dL (70-99) 174 mg/dL (70-99) Test 10/04/20 05:40 10/04/20 06:44 10/04/20 08:00 White Blood Count 16.6 x10^3/uL (4.0-11.0) Red Blood Count 5.49 x10^6/uL (3.50-5.40) Hemoglobin 12.1 g/dL (12.0-15.5) Hematocrit 41.4 % (36.0-47.0) Mean Corpuscular Volume 76 fL (79-100) Mean Corpuscular Hemoglobin 22 pg (25-35) Mean Corpuscular Hemoglobin Concent 29 g/dL (31-37) Red Cell Distribution Width 19.5 % (11.5-14.5) Platelet Count 199 x10^3/uL (140-400) Sodium Level 147 mmol/L (136-145) Potassium Level 4.4 mmol/L (3.5-5.1) Chloride Level 112 mmol/L (98-107) Carbon Dioxide Level 26 mmol/L (21-32) Anion Gap 9 (6-14) Blood Urea Nitrogen 52 mg/dL (7-20) Creatinine 1.0 mg/dL (0.6-1.0) Estimated GFR (Cockcroft-Gault) 66.9 BUN/Creatinine Ratio 52 (6-20) Glucose Level 189 mg/dL (70-99) Calcium Level 8.6 mg/dL (8.5-10.1) Total Bilirubin 0.2 mg/dL (0.2-1.0) Aspartate Amino Transf (AST/SGOT) 35 U/L (15-37) Alanine Aminotransferase (ALT/SGPT) 73 U/L (14-59) Alkaline Phosphatase 73 U/L (46-116) Total Protein 6.7 g/dL (6.4-8.2) Albumin 1.9 g/dL (3.4-5.0) Albumin/Globulin Ratio 0.4 (1.0-1.7) Glucose (Fingerstick) 184 mg/dL (70-99) O2 Saturation 65 % (92-99) Arterial Blood pH 7.32 (7.35-7.45) Arterial Blood pCO2 at Patient Temp 54 mmHg (35-46) Arterial Blood pO2 at Patient Temp < 42 mmHg (65-108) Arterial Blood HCO3 27 mmol/L (21-28) Arterial Blood Base Excess 0 mmol/L (-3-3) FiO2 100/vent Medications Active Scripts Medications Dose Route/Sig Max Daily Dose Days Date Category Metolazone 5 Mg Tablet 5 Mg PO QODAY 09/17/20 Reported Imuran (Azathioprine) 50 Mg Tablet 1 Tab PO DAILY 30 09/17/20 Reported Albuterol Sulfate Neb Soln (Albuterol Sulfate) 2.5 Mg/3 Ml Vial.neb 1 Vial NEB PRN Q4HRS 09/17/20 Reported Carvedilol (Carvedilol) 12.5 Mg Tablet 12.5 Mg PO BIDWMEALS 09/17/20 Reported Melatonin 5 Mg Capsule 3 Mg PO HS 09/17/20 Reported Duoneb 0.5-3(2.5) Mg/3 Ml (Albuterol/Ipratropium) 3 Ml Ampul.neb 3 Ml NEB QID 09/17/20 Reported Klor-Con 10 (Potassium Chloride) 10 Meq Tablet.er 1 Tab PO DAILY 30 09/17/20 Reported Eliquis (Apixaban) 5 Mg Tablet 5 Mg PO BID 09/17/20 Reported Torsemide 20 Mg Tablet 1 Tab PO BID 09/17/20 Reported Metformin Hcl 1,000 Mg Tablet 1,000 Mg PO BIDWMEALS 09/17/20 Reported Oxycodone HCl 5 Mg Tablet 10 Mg PO PRN Q6HRS PRN 09/17/20 Reported Ambien (Zolpidem Tartrate) 5 Mg Tablet 5 Mg PO PRN QHS PRN 09/17/20 Reported Levothyroxine Sodium 125 Mcg Tablet 1 Tab PO DAILY 09/17/20 Reported Gabapentin (Gabapentin) 300 Mg Capsule 300 Mg PO BID 09/17/20 Reported Lantus Solostar (Insulin Glargine,Hum.rec.anlog) 100 Unit/1 Ml Insuln.pen 20 Unit SQ QHS 09/17/20 Reported Insulin Lispro 100 Unit/1 Ml Vial 10 Unit SQ TID 09/17/20 Reported Comments CXR reviewed 1. ett ok 2. Bilateral parenchymal airspace opacities, new/progressed compared to 09/28/2020 likely multifocal consolidative process. Impression . IMPRESSION: 1. 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 Abnormal x-ray. 3. Acute on chronic kidney injury. 4. Chronic rt heart failure. 5. ? bacterial pneumonia.no positive cultures 6. COVID-19-- negative X2 7. Metabolic toxic encephalopathy. 8. Elevated liver chemistries. 9. Moderate protein malnutrition, present upon admission. Plan . PLAN: Continue current vent support, currently on pressure control rate of 22 with a driving pressure of 20, Fi02 100% and a PEEP of 12, remains hypoxic despite max aggressive care Follow CXR/ABG --no changes Continue Eliquis for Full dose Anti-coagulation for PE Pt has h/o Sarcoidosis/ ILD, continue steroids Echo with bubble study with no shunt Continue empiric antibiotics, Zosyn 09/23--- D/C today has completed full course COVID-19 negative, MRSA PCR negative Continue tube feeding for nutritional support DVT/GI prophylaxis D/W RN and RT prognosis very poor, discussed with family . There is no hope of survival. I recommended palliative care. Sister agrees. she will talk to her daughter and come over to say her good by and withdraw care. DNR till she gets here ANDRIY LEONE MD Oct 04, 2020 09:43
[2020-10-04] MEDS: MIDAZOLAM 100mg/100ml NS BAG 100 ML IV PRN (09:59)
--- NOTE | 2020-10-04 14:17 | NUR ---
SS following up with discharge planning. SS reviewed pt chart and discussed with pt RN. Pt is currently on the vent at 100%. COVID19 negative. Not stable. Dr. Petersen had family discussion. DNR now. Possible withdrawal of care soon. SS will continue to follow for discharge planning.
--- NOTE | 2020-10-04 16:53 | NUR ---
Patient with family at bedside. TOD 1600. Dr. Munguia, Dr. Dukes, Nursing patrol supervisor, and MTN has been notified. MTN reviewing for possible tissue and eye donation. [facility] will be notified by family. Patient's family expressed there gratitude for the care the patient received here.
--- NOTE | 2020-10-20 11:27 | DS ---
DATE OF DISCHARGE: 10/04/2020 DISCHARGE AND SUMMARY HOSPITAL COURSE: The patient is a 65-year-old -[place] female patient who was seen initially at Emergency Room of [facility] with worsening shortness of breath and hypoxia. On arrival to the Emergency Room, she was placed on CPAP and oxygen saturation has improved to mid 70s. The patient was obtunded and will awaken up to voice and follows commands. Per family, she was at baseline. The day before admission, she denied any COVID-19 symptoms or exposure. She has significant history for congestive heart failure and COPD, and also chronic pulmonary sarcoidosis. Apparently, she was on oxygen at 12 liters at rest and 15 liters on exertion. Her blood gases showed a pH of 7.17, a pCO2 of 75 and pO2 of 45. The patient was eventually intubated and started on mechanical ventilation, was transferred to [facility] with acute hypoxic hypercapnic respiratory failure, likely due to community-acquired pneumonia. She is also known to have congestive heart failure together with morbid obesity and probably obstructive sleep apnea as well as chronic pulmonary sarcoidosis. The patient was treated with IV antibiotic, IV Lasix as well as dexamethasone. The patient was seen in consultation by splitting machine operator helper as well as food checker; however, the patient continued to do poorly and we have had multiple discussions with the family given that we have attempted twice to transfer her to [facility] and on [facility] for extracorporeal membrane oxygenation. Unfortunately, there were no beds available and no machines available and despite being on the ventilator with FiO2 of 100% and a PEEP of 12, continued to be extremely hypoxic. I had a lengthy discussion with the family again and recommended palliative care and her sister finally agreed. Her code status was changed to DNR/DNI and on 10/04/2020, the patient was terminally extubated with the family at the bedside at 1600 and she was pronounced at around 1653 on 10/04/2020. CAUSE OF : Cardiopulmonary arrest, acute on chronic hypoxic hypercapnic respiratory failure, acute on chronic diastolic congestive heart failure, morbid obesity, obstructive sleep apnea and chronic pulmonary sarcoidosis with severe interstitial lung disease. DARION MANCINI MD DR: NICHOLAS/emmett JOB#: [id number] / [id number]
== END 2020-10-04 17:15 | DRG 870 ==
LOC: 1 WEST ICU 21:41
PROVIDERS: ADMIT Internal Medicine; ATTEND Internal Medicine
PROC: 5A1955Z Respiratory Ventilation, Greater than 96 Consecutive Hours (ICD-10-PCS; principal; 2020-09-16)
PROC: 0BH17EZ Insertion of Endotracheal Airway into Trachea, Via Natural or Artificial Opening (ICD-10-PCS; 2020-09-16)
PROC: 5A09357 Assistance with Respiratory Ventilation, Less than 24 Consecutive Hours, Continuous Positive Airway Pressure (ICD-10-PCS; 2020-09-16)
PROC: 02HV33Z Insertion of Infusion Device into Superior Vena Cava, Percutaneous Approach (ICD-10-PCS; 2020-09-28)
DX: A41.9 Sepsis, unspecified organism (principal); I50.33 Acute on chronic diastolic (congestive) heart failure; G92 Toxic encephalopathy; J15.9 Unspecified bacterial pneumonia; I21.4 Non-ST elevation (NSTEMI) myocardial infarction; J80 Acute respiratory distress syndrome; E44.0 Moderate protein-calorie malnutrition; Z68.42 Body mass index [BMI] 45.0-49.9, adult; N17.9 Acute kidney failure, unspecified; J44.0 Chronic obstructive pulmonary disease with (acute) lower respiratory infection; J44.1 Chronic obstructive pulmonary disease with (acute) exacerbation; J84.9 Interstitial pulmonary disease, unspecified; I13.0 Hypertensive heart and chronic kidney disease with heart failure and stage 1 through stage 4 chronic kidney disease, or unspecified chronic kidney disease; I16.0 Hypertensive urgency; Z66 Do not resuscitate; N18.9 Chronic kidney disease, unspecified; E11.22 Type 2 diabetes mellitus with diabetic chronic kidney disease; E66.01 Morbid (severe) obesity due to excess calories; G47.33 Obstructive sleep apnea (adult) (pediatric); R79.89 Other specified abnormal findings of blood chemistry; D86.0 Sarcoidosis of lung; Z20.822 Contact with and (suspected) exposure to COVID-19; Z90.710 Acquired absence of both cervix and uterus; Z90.49 Acquired absence of other specified parts of digestive tract; Z86.711 Personal history of pulmonary embolism; Z82.5 Family history of asthma and other chronic lower respiratory diseases; Z82.49 Family history of ischemic heart disease and other diseases of the circulatory system; Z79.01 Long term (current) use of anticoagulants
CPT/HCPCS: 36415; 36569; 36600; 71045; 76770; 80048; 80053; 80202; 82805; 82962; 83735; 84443; 84484; 85007; 85025; 85027; 85520; 86140; 87641; 93306; 93970; 94002; 94003; 94640; C8929; J0456; J0696; J1100; J1644; J1650; J1815; J1940; J2250; J2543; J2704; J2920; J3010; J3370; J3490; J7040; J7050; Q9956; U0003; G0378; J7030